=== PATIENT | female | born 1950 | race Two or more races ===

== ENCOUNTER 2020-09-28 08:56 | Outpatient (REF) | payer MEDICARE, SELFPAY ==
[2020-09-28 10:24] LABS: Blood Urea Nitrogen 16 mg/dL (9-16); Estimated Glomerular Filt Rate > 60
== END 2020-09-28 08:57 | disposition home or self-care (01) ==
LOC: HO.LAB 08:56
PROVIDERS: PCP Student in an Organized Health Care Education/Training Program; Visit Provider Otolaryngology
DX: R22.1 Localized swelling, mass and lump, neck (principal)
CPT/HCPCS: 82565; 84520

== ENCOUNTER 2020-11-07 09:12 | Outpatient (REF) | payer MEDICARE, SELFPAY ==
[2020-11-07 10:29] LABS: Blood Urea Nitrogen 13 mg/dL (9-16); Estimated Glomerular Filt Rate > 60
== END 2020-11-07 09:13 | disposition home or self-care (01) ==
LOC: HO.LAB 09:12
PROVIDERS: PCP Student in an Organized Health Care Education/Training Program; Visit Provider Otolaryngology
DX: Z01.812 Encounter for preprocedural laboratory examination (principal); R22.1 Localized swelling, mass and lump, neck
CPT/HCPCS: 36415; 82565; 84520

== ENCOUNTER 2020-11-15 08:41 | Outpatient (REF) | payer MEDICARE, SELFPAY ==
--- NOTE | 2020-11-15 08:44 | CT_ITS ---
EXAMINATION: CT SOFT TISSUE NECK WITHOUT CONTRAST CLINICAL INFORMATION: Mass/lump left side. COMPARISON: None TECHNIQUE: Helical imaging was performed in the axial plane with generation of coronal and sagittal reformatted images. Patient declined IV contrast. This CT examination was performed using dose optimization techniques as appropriate, variously including the following: *Automated exposure control *Adjustment of mA and/or kV according to patient size (this includes techniques or standardized protocols for targeted exams where dose is matched to indication/reason for exam; i.e. extremities or head) *Use of iterative reconstruction technique DLP: 371 mGy-cm FINDINGS: There are bilateral multiple enlarged lymph nodes with central lucency consistent with medullary fat. The largest lymph node right neck 2 cm in long axis and 9 mm in short axis axial image 57/3 and the largest lymph node left neck level 2 measures 2.4 x 9 mm axial image 52/3. These are benign. The parotid glands are homogeneous in attenuation. The submandibular glands are normal. No contour abnormality or pathologic enhancement is seen within the oral cavity or pharyngeal mucosal space. The laryngeal structures are normal. The parapharyngeal fat is preserved. The carotid sheath vasculature opacify normally. No extramucosal soft tissue mass or fluid collection is seen. No retropharyngeal fluid collection is seen. There is a 7 mm calcified nodule right thyroid lobe. The superior mediastinum is unremarkable. The lung apices are clear. There is bilateral ethmoid and left sphenoid sinus inflammatory changes. The temporomandibular joints are normal. No periapical disease is identified. No osseous abnormalities are seen. The imaged portions of the brain parenchyma are unremarkable. CT/CT soft tissue neck wo con IMPRESSION: No evidence of neck mass or abnormal-sized lymph nodes. The airway is widely patent. Calcified nodule right thyroid lobe. Correlate with ultrasound thyroid gland.
== END 2020-11-15 08:42 | disposition home or self-care (01) ==
LOC: HO.CT 08:41
PROVIDERS: PCP Student in an Organized Health Care Education/Training Program; Visit Provider Otolaryngology
DX: R22.1 Localized swelling, mass and lump, neck (principal)
CPT/HCPCS: 70490

== ENCOUNTER 2021-10-12 11:20 | Outpatient (REF) | payer MEDICARE, SELFPAY ==
--- NOTE | ~2021-10-12 | US_ITS ---
EXAMINATION: US THYROID CLINICAL INFORMATION: 7 mm calcified nodule seen on CT from October 2020. Localized enlarged lymph nodes. COMPARISON: CT soft tissue neck 11/15/2020. TECHNIQUE: Linear transducer grayscale and color Doppler examination with attention to the region of the thyroid. FINDINGS: SIZE: Measurements of the thyroid lobes and nodules are given in sagittal, anteroposterior and transverse dimensions respectively. Right Thyroid Lobe: 4.3 x 1.9 x 2.1 cm, volume 9.0 mL. Parenchyma: The gland echotexture is heterogeneous. Thyroid vascularity is increased. Left Thyroid Lobe: 3.8 x 1.8 x 1.4 cm, volume 5.0 mL. Parenchyma: The gland echotexture is heterogeneous. Thyroid vascularity is increased. Isthmus: 0.3 cm in maximum AP dimension. Estimated total number of nodules greater than or equal to 1 cm: 2. Aligner Typewriter nodules are described as follows: 1. Location: Right superior. Size: 0.6 x 0.3 x 0.3 cm, volume 0.04 mL. Nodule characteristics: Composition: Cystic(0). ACR TI-RADS total points: 0 ACR TI-RADS category: 1 2. Location: Right inferior. Size: 2.2 x 1.6 x 2.3 cm, volume 4.1 mL. Nodule characteristics: Composition: Solid (2). Echogenicity: Isoechoic (1). Shape: Not taller than wide (0). Margins: Lobulated (2). Echogenic Foci: Macrocalcifications (1). ACR TI-RADS total points: 6 ACR TI-RADS category: 4 3. Location: Left superior. Size: 2.4 x 0.9 x 1.3 cm, volume 1.47 mL. Nodule characteristics: Composition: Solid (2). Echogenicity: Hypoechoic (2). Shape: Not taller than wide (0). Margins: Extrathyroidal extension (3). Echogenic Foci: None (0). ACR TI-RADS total points: 7 ACR TI-RADS category: 5 NODES: Multiple bilateral enlarged cervical lymph nodes. The largest on the right measures 2.5 cm and the largest on the left measures 2.9 cm. US/US thyroid IMPRESSION: Heterogeneous echotexture thyroid gland. The bilateral thyroid nodules. Nodules 2 and 3 meet criteria for FNA. ACR TI-RADS RECOMMENDATION REFERENCE: Ultrasound-guided fine-needle aspiration, followup ultrasound, no further follow up. * TR1 (0 point) and TR 2 (2 points): No FNA or follow up * TR3 (3 points): FNA if more than or equal to 2.5 cm in maximum dimension, followup ultrasound in 1, 3 and 5 years if 1.5 to 2.4 cm in maximum dimension. * TR4 (4-6 points): FNA if more than or equal to 1.5 cm in maximum dimension, followup ultrasound in 1, 2, 3 and 5 years if 1 to 1.4 cm in maximum dimension. * TR5 (more than or equal to 7 points): FNA if more than or equal to 1 cm in maximum dimension, followup ultrasound every year for 5 years if 0.5 to 0.9 cm in maximum dimension. * TR3, TR4 or TR5 nodules that are below the size threshold for follow up receive no follow up.
== END 2021-10-12 11:21 | disposition home or self-care (01) ==
LOC: HO.HMGCX 11:20
PROVIDERS: PCP Student in an Organized Health Care Education/Training Program; Visit Provider Family Medicine
DX: R59.0 Localized enlarged lymph nodes (principal); E04.1 Nontoxic single thyroid nodule
CPT/HCPCS: 76536

== ENCOUNTER 2021-12-05 09:46 | Outpatient (REF) | payer MEDICARE, SELFPAY ==
--- NOTE | ~2021-12-05 | XR_ITS ---
EXAMINATION: XR TEMPOROMANDIBULAR JOINT, BILATERAL CLINICAL INFORMATION: Jaw pain COMPARISON: None TECHNIQUE: 5 views FINDINGS: There is normal symmetry of bilateral TM joints in open and closed positions with no bony erosive changes, fracture or loose bodies. Visualized bilateral maxillary, ethmoid and mastoid sinuses are clear. No lytic or sclerotic process is seen involving the mandible. There is normal translation of the mandibular condyle in the temporal fossa on open and closed mouth position. XR/XR TMJ BI IMPRESSION: Unremarkable TM joint exam.
== END 2021-12-05 09:47 | disposition home or self-care (01) ==
LOC: HO.XRAY 09:46
PROVIDERS: PCP Student in an Organized Health Care Education/Training Program; Visit Provider Student in an Organized Health Care Education/Training Program
DX: R68.84 Jaw pain (principal)
CPT/HCPCS: 70330

== ENCOUNTER 2023-05-21 | Outpatient (REF) | payer MEDICARE, SELFPAY | END 2023-05-21 00:01 | disposition home or self-care (01) | LOC: HO.LNP | PROVIDERS: Visit Provider Physician Assistant | DX: Z13.89 Encounter for screening for other disorder (principal) ==

== ENCOUNTER 2023-05-21 09:42 | Outpatient (AMB) | payer MEDICARE, SELFPAY ==
--- NOTE | 2023-05-21 09:59 | MHC.OFFVIS ---
Intake Vital Signs 05/21/23 10:04 Height 5 ft Weight 167 lb BMI 32.6 BP 134/74 Blood Pressure Location Lt brachial Position Sitting Pulse 76 Intake Visit Reasons: Colonoscopy Screening Intake Note: Patient new consult for Colonoscopy screening. Patient cc: abdominal pain/bloating, acid reflex on and off, and constipation with bloody hemorrhoids. Corporate Strategy Associate Required: No Accompanied by: Self / Same As Patient Allergies Sulfa (Sulfonamide Antibiotics) [SULFA (SULFONAMIDE ANTIBIOTICS)] Allergy (Unknown, Verified 05/21/23 09:58) RASH Medication List - Last Reconciled 05/22/23 by Cherelle Calzada PA-C bisacodyl (Dulcolax (bisacodyl)) 20 mg (4 x 5 mg) PO ONCE 1 day docusate sodium (Colace) 200 mg (2 x 100 mg) PO BEDTIME methylcellulose (laxative) (Citrucel) 500 mg PO TID omeprazole 20 mg PO DAILY polyethylene glycol 3350 (Miralax) 238 grams PO ONCE 1 day polyethylene glycol 3350 (Miralax) 17 grams PO DAILY HPI HPI Comments History of Present Illness Details a 72 y/o female referrred for colonoscopy Last 1984- had 2 polyps- Treated for e.colo- a few months ago- did not complete tx- sx have improved-followed up with PCP She does have bloating abd cramping intermittenly-ongoing for most of her adult life Also chronic constipation-adult life Meds for cholesterol, anxiety, hypertension No DM, no anti coags Appetite is good- but has sick feeling when she eats with reflux/ waterbrash-symptoms off over the years No vomiting, hematemesis, hematochezia fever chills PFSH Surgical History Hx of ankle fusion Hx of hysterectomy Hx of malignant neoplasm of head and neck Hx of tubal ligation Social History Household Members: None Alcohol intake: current Alcohol intake frequency: holidays/special occasions only Patient Tobacco Use Status: Current everyday Tobacco user Use of substances other than those prescribed or required for medical reasons: No Review of Systems Const All systems reviewed & are unremarkable except as noted in HPI and below Card Denies chest pain and Denies dyspnea Resp Denies dyspnea GI Denies abdominal pain, Denies hematochezia, Reports constipation and Reports heartburn Physical Exam Vital Signs: Last Vital Signs Pulse 76 05/21/23 10:04 BP 134/74 05/21/23 10:04 BMI result Body Mass Index 32.6 Const General: cooperative, healthy appearing and comfortable Orientation/consciousness: patient oriented x3 Limitations: ambulation with cane Resp Effort & Inspection: normal respiratory effort and able to speak in complete sentences Auscultation: rhonchi and no wheezes Cardio Rate: regular rate Rhythm: regular rhythm Heart sounds: S1 normal heart sound present and S2 normal heart sound present GI Palpation (GI): Soft to palpation and nontender Auscultation: normal bowel sounds Skin General skin exam: no rashes or lesions noted Neuro General: patient oriented x3 Psych Speech and movement: Normal speech and movement present and Clear speech present Affect: normal affect and Animated affect present Attitude: cooperative Thought process: Normal thought process present Assessment & Plan Assessment & Plan (1) Acid reflux: Comment: Smoker Symptoms ongoing for years Reflux precautions reviewed Code(s): K21.9 - Gastro-esophageal reflux disease without esophagitis Plan: Avoid culprits Submit H pylori stool if positive will treat will begin PPI after some sample submitted (2) Chronic constipation: Code(s): K59.09 - Other constipation Plan: Consistent bowel regimen Maintain high-fiber Colonoscopy (3) Encounter for screening colonoscopy: Code(s): Z12.11 - Encounter for screening for malignant neoplasm of colon Plan: Colonoscopy Plan EGD colonoscopy MiraLax Gatorade prep MiraLax b.i.d. 5 days prior to prep day to assure good prep Orders: Orders EGD/[place] Combo - GI Use Only 05/21/23 H pylori Ag Stool 05/21/23 A04.8 - Other specified bacterial intestinal infections Medications: New methylcellulose (laxative) (Citrucel) 500 mg PO TID 90 tabs 5RF docusate sodium (Colace) 200 mg (2 x 100 mg) PO BEDTIME 60 caps 5RF polyethylene glycol 3350 (Miralax) 17 grams PO DAILY 510 grams 6RF polyethylene glycol 3350 (Miralax) Take as directed by mouth the day before your procedure. 238 grams PO ONCE 238 grams 0RF 1 day bisacodyl (Dulcolax (bisacodyl)) Take 4 tablets by mouth at 12:00pm the day before your procedure. 20 mg (4 x 5 mg) PO ONCE 4 tabs 0RF colonoscopy prep 1 day Z12.11 - Encounter for screening for malignant neoplasm of colon omeprazole 20 mg PO DAILY 30 caps 5RF Patient Instructions: H pylori stool antigen if positive will treat Omeprazole 20 mg Reflux precautions Avoid culprits Consistent bowel regimen Maintain high-fiber diet literature given EGD and colonoscopy Extended prep Courage to call questions or concerns Coding Level of Care Code New Pt Level 3 (15159) Diagnoses Acid reflux K21.9 Chronic constipation K59.09 Encounter for screening colonoscopy Z12.11 Time Spent (min) 30 Comment Adult daughter present-
[2023-05-21 10:04] VITALS: BP 134/74; PULSE 76; BMI 32.6
== END 2023-05-21 10:57 | disposition home or self-care (01) ==
PROVIDERS: PCP Student in an Organized Health Care Education/Training Program; Visit Provider Physician Assistant
DX: K21.9 Gastro-esophageal reflux disease without esophagitis (principal); K59.09 Other constipation; Z12.11 Encounter for screening for malignant neoplasm of colon
CPT/HCPCS: 99203

== ENCOUNTER → 2023-05-21 09:42 | Outpatient (BNVA) | payer MEDICARE, SELFPAY | PROVIDERS: PCP Student in an Organized Health Care Education/Training Program; Visit Provider Physician Assistant | DX: Z12.11 Encounter for screening for malignant neoplasm of colon (principal); K21.9 Gastro-esophageal reflux disease without esophagitis; K59.09 Other constipation | CPT/HCPCS: 99202 ==

== ENCOUNTER 2023-06-03 15:42 | Outpatient (REF) | payer MEDICARE, SELFPAY | END 2023-06-03 15:43 | disposition home or self-care (01) | LOC: HO.LNP 15:42 | PROVIDERS: Visit Provider Physician Assistant | DX: A04.8 Other specified bacterial intestinal infections (principal) | CPT/HCPCS: 87338 ==

== ENCOUNTER 2023-07-18 10:03 | Outpatient (AMB) | payer MEDICARE, SELFPAY ==
--- NOTE | 2023-07-18 10:42 | MHC.OFFVIS ---
Intake Intake Visit Reasons: h pylori Intake Note: Patient presents for collection of H Pylori breath test. Patient has been fasting for 1 hour (nothing to eat, drink, no chewing gum or smoking) has not taken any antacid medication for at least 2 weeks and has no allergies to artificial sweeteners.?? Allergies Sulfa (Sulfonamide Antibiotics) [SULFA (SULFONAMIDE ANTIBIOTICS)] Allergy (Unknown, Verified 05/21/23 09:58) RASH [facility] Surgical History Hx of tubal ligation Hx of malignant neoplasm of head and neck Hx of hysterectomy Hx of ankle fusion Social History Household Members: None Alcohol intake: current Alcohol intake frequency: holidays/special occasions only Patient Tobacco Use Status: Current everyday Tobacco user Results Reviewed Results Reviewed: 07/18/23 10:38 H Pylori Breath Test Routine Laboratory Last Values H. pylori Breath Test Positive (Negative) 07/18/23 10:38 Assessment & Plan Assessment & Plan (1) H. pylori infection: Code(s): A04.8 - Other specified bacterial intestinal infections Plan: Patient to call for results Plan Patient presents for collection of H Pylori breath test. Patient has been fasting for 1 hour (nothing to eat, drink, no chewing gum or smoking) has not taken any antacid medication for at least 2 weeks and has no allergies to artificial sweeteners.???This test checks for an overgrowth of bacteria in your stomach. We all have bacteria but some may have more than others. It is treatable. if the test comes back negative there is nothing else to do. If the test result is positive we will treat you with 2 antibiotics and a medication to decrease the acid in your stomach (PPI) for 2 weeks. Two weeks after you have completed the treatment we will retest you to make sure the overgrowth has resolved. Patient Instructions: Process for specimen collection and reason for testing was explained to the patient. Specimen collection. Patient instructed to take a deep breath and then exhale into the blue bag, filling it up as much as possible. Patient instructed to drink a mixture of water and the artificial sweetener with a straw. A 15 minute wait period was observed. Patient instructed to take a deep breath and then exhale into the pink bag, filling it up as much as possible.?? Coding Level of Care Code Established Pt Est Pt Level 1 (54577) Patient Type Established Medical Decision Making Straight Forward Diagnoses H. pylori infection A04.8 Time Spent (min) 30
[2023-07-20 13:43] LABS: H Pylori Breath Test Positive (Negative)
== END 2023-07-18 10:40 | disposition home or self-care (01) ==
PROVIDERS: PCP Student in an Organized Health Care Education/Training Program; Visit Provider Physician Assistant
DX: A04.8 Other specified bacterial intestinal infections (principal)

== ENCOUNTER → 2023-07-18 10:03 | Outpatient (BNVA) | payer MEDICARE, SELFPAY | PROVIDERS: PCP Student in an Organized Health Care Education/Training Program; Visit Provider Physician Assistant | DX: Z11.0 Encounter for screening for intestinal infectious diseases (principal) | CPT/HCPCS: 83013; 99211 ==

== ENCOUNTER 2023-10-08 10:25 | Day surgery (SDC) | payer MEDICARE, SELFPAY ==
--- NOTE | 2023-10-07 09:21 | P.CONAN_ITS ---
Documented by User: Karin Niño NP 10/07/23 09:32 HPI - Anesthesia Eval Consult details Narrative: 73yo F for Upper Endoscopy and Colonoscopy [facility] Active Problems Active Problems: All Active Problems (Updated 07/21/23 @ 09:31 by Cherelle Calzada PA-C) H. pylori infection (Acute) Encounter for screening colonoscopy (Acute) Chronic constipation (Acute) Acid reflux (Acute) Surgical History Surgical History Hx of ankle fusion Hx of hysterectomy Hx of malignant neoplasm of head and neck Hx of tubal ligation Social History Social History Household Members: None Alcohol intake: current Alcohol intake frequency: holidays/special occasions only Patient Tobacco Use Status: Current everyday Tobacco user Tobacco use type: Cigarette Cigarettes Per Day: 2 Use of substances other than those prescribed or required for medical reasons: No Are you DNR?: No Advance Directives: No Advance Directives Information Provided: Yes Recently lost weight without trying: No Patient : No Meds Allergies Allergy/AdvReac Type Severity Reaction Status Date / Time Sulfa (Sulfonamide Allergy Unknown RASH Verified 05/21/23 09:58 Antibiotics) [SULFA (SULFONAMIDE ANTIBIOTICS)] Assessment and Plan Assessment Anesthesia Assessment: Chart Reviewed Documented by User: Vitor Shafer MD 10/08/23 11:41 [facility] Family History Family history of problems with anesthesia: No Surgical History Surgical History Hx of ankle fusion Hx of hysterectomy Hx of malignant neoplasm of head and neck Hx of tubal ligation History of Problems with Anesthesia: No Social History Social History Household Members: None Alcohol intake: current Alcohol intake frequency: holidays/special occasions only Patient Tobacco Use Status: Current everyday Tobacco user Tobacco use type: Cigarette Cigarettes Per Day: 2 Use of substances other than those prescribed or required for medical reasons: No Are you DNR?: No Advance Directives: No Advance Directives Information Provided: Yes Recently lost weight without trying: No Patient : No Meds Allergies Allergy/AdvReac Type Severity Reaction Status Date / Time Sulfa (Sulfonamide Allergy Unknown RASH Verified 05/21/23 09:58 Antibiotics) [SULFA (SULFONAMIDE ANTIBIOTICS)] Exam Airway Mallampati Class: II TM Dist: >3cm Neck ROM: Limited Heart: rrr Lungs: cta Assessment and Plan Assessment Anesthesia Assessment: Anesthesia Plan Discussed Final Anesthetic Review Family History of Problems with Anesthesia: No History of Problems with Anesthesia: No NPO: Yes ASA Class: II Final Preanesthetic Review: No Changes in Pt Med Stat, Meds/Allgs Chart Reviewed, Consent Obtained/Reviewed and Anes Risks/Benef Reviewed Patient Risk: Intermediate Procedure Risk: Low Anesthetic Plan Anesthetic Plan: MAC: and Agree w/ Assess. and Plan Disposition: Standard PACU
[2023-10-08] VITALS (13 sets, daily range): BP systolic 168–193; BP diastolic 81–104; PULSE 91–121; RESP 16–22; TEMP 36.3–36.8; O2SAT 90–96; BMI 30.9
--- NOTE | 2023-10-08 | ECG_ITS ---
Test Reason : ekg changes Blood Pressure : / mmHG Vent. Rate : 101 BPM Atrial Rate : 101 BPM P-R Int : 192 ms QRS Dur : 140 ms QT Int : 386 ms P-R-T Axes : 063 018 136 degrees QTc Int : 500 ms Sinus tachycardia Left bundle branch block Abnormal ECG No previous ECGs available Referred By: Leonid Sin Electronically Signed By:Puma Pablo
--- NOTE | ~2023-10-08 | XR_ITS ---
EXAMINATION: XR CHEST CLINICAL INFORMATION: Evaluate for aspiration COMPARISON: None available. TECHNIQUE: Frontal view of the chest was obtained. FINDINGS: Patchy radiopacity involving the left mid and lower lung rivero which may reflect sequela of aspiration versus evolving infectious/inflammatory etiology. Bibasilar atelectasis. No pneumothorax. Trachea is midline. Cardiac mediastinal silhouette is not enlarged. No large pleural effusion. Osseous structures are intact. Soft tissues are unremarkable. XR/XR chest 1V IMPRESSION: 1. Patchy radiopacity involving the left mid and lower lung rivero which may reflect sequela of aspiration versus evolving infectious/inflammatory etiology. 2. Bibasilar atelectasis.
--- NOTE | 2023-10-08 11:09 | MHC.SHP ---
Pre-Procedural Eval Section A Date of Service: 10/08/23 Section B Chief Complaint: Gastro-esophageal reflux disease without esophagit Relevant Family History (Specify if Yes): No Relevant Social History: Tobacco Use Present Medications: see Short Stay Collaborative assessment Medical History: Significant History (h pylori, GERD) History of Previous Operations: Relevant previous surgery/procedure and date(s) ( Hx of ankle fusion Hx of hysterectomy Hx of malignant neoplasm of head and neck Hx of tubal ligation) Allergies: Allergies Allergy/AdvReac Type Severity Reaction Status Date / Time Sulfa (Sulfonamide Allergy Unknown RASH Verified 05/21/23 09:58 Antibiotics) [SULFA (SULFONAMIDE ANTIBIOTICS)] Review of Systems Sugical H&P ROS: Negative: Constitution, Cardiovascular, Respiratory, Neurological, Psychiatric, Hem-Onc, Allergic/Immunologic, Gastrointestinal, Genitourinary, Musculoskeletal, Integumentary, Endocrine and Eyes/Ears/Nose/Throat Exam Surgical H&P Exam: Normal: HEENT, Normal: Heart, Normal: Lungs, Normal: Extremities, Normal: Abdomen, Normal: Skin and Normal: Neurological Plan Diagnosis/Plan: Unchanged I have reviewed the history and physical and performed a pertinent physical examination on my patient. No changes have occurred unless specified. EGD was postponed due to loose tooth Time Spent With Patient Time: Total time managing care of this patient today ____ minutes.
--- NOTE | 2023-10-08 13:02 | W.PM.OPN ---
Operative Note Operative Note Date of Service: 10/08/23 Narrative: Operative Information Procedure Description: Colonoscopy Indication: screening Anesthesia: MAC COLONOSCOPY Instrument: Olympus variable stiffness pediatric scope 190L Colonoscopy Monitoring: Vital signs and clinical assessment, continuous EKG monitoring, Pulse oximetry, Carbon Dioxide monitoring and blood pressure monitoring were done throughout the procedure. Colon withdrawal time was 30 minutes. Procedure: The patient was placed in the left lateral decubitis position and pre-procedure medications were administered. After a digital rectal examination of the ano-rectum, the video colonoscope was inserted into the rectum and advanced through the colon to the cecum/TI. The colonoscope was slowly withdrawn in a retrograde panoramic fashion and the colon mucosa was carefully examined including a retroflexed view of the rectum. Findings and interventions are described below. Procedure Difficulty: easy Findings: Terminal Ileum-normal Cecum:normal Ascending Colon: x 3 sessile polyps removed with cold snare measuring 10-13 mm. There was x1 pedunculated polyp measuring about 15-18 mm, injected with 1 ml of epinehprine and removed piece meal with hot snare then x 2 clips applied. Transverse Colon -normal Descending Colon: x3 sessile polyps ranging from 4-5 mm to 10-12 mm noted. larger polyps removed with cold snare and the smaller one with cold biopsy forceps. x 1 clip applied to one are for hemostasis. Sigmoid Colon: moderate diverticulosis Rectum: Retroflexion with small internal hemorrhoids, grade I, semi pedunculated polyp 13-14 mm removed with hot snare and then x 2 clips applied to the defect. Anorectum - normal Colon preparation: [place] Bowel Preparation Scale Right colon; 2 Transverse colon: 2 Left colon; 2 (0 = Unprepared colon segment with mucosa not seen due to solid stool that cannot be cleared. 1 = Portion of mucosa of the colon segment seen, but other areas of the colon segment not well seen due to staining, residual stool and/or opaque liquid. 2 = Minor amount of residual staining, small fragments of stool and/or opaque liquid, but mucosa of colon segment seen well. 3 = Entire mucosa of colon segment seen well with no residual staining, small fragments of stool or opaque liquid) Impression and Post Procedure Diagnosis: polyps internal hemorrhoids diverticular disease Plan: High fiber diet leaflet Avoid straining at stool, epsom salts and sitz bath, anusol supps or cream Repeat Colonoscopy in 3-6 months or earlier if clinically indicated Above findings were reviewed with the patient and relevant handouts were provided if indicated.
== END 2023-10-08 14:57 | disposition home or self-care (01) ==
PROVIDERS: PCP Student in an Organized Health Care Education/Training Program; Visit Provider Internal Medicine Gastroenterology
PROC: (CPT 45385; principal; 2023-10-08 12:50)
DX: Z12.11 Encounter for screening for malignant neoplasm of colon (principal); D12.2 Benign neoplasm of ascending colon; D12.4 Benign neoplasm of descending colon; K62.1 Rectal polyp; K57.30 Diverticulosis of large intestine without perforation or abscess without bleeding; K64.0 First degree hemorrhoids; K59.09 Other constipation; K21.9 Gastro-esophageal reflux disease without esophagitis; Z79.899 Other long term (current) drug therapy; Z85.89 Personal history of malignant neoplasm of other organs and systems; Z88.2 Allergy status to sulfonamides; F17.210 Nicotine dependence, cigarettes, uncomplicated
CPT/HCPCS: 45385; 45380; 45381; 71045; 88305; 93005; J2405; J2704

== ENCOUNTER → 2023-10-08 10:25 | Outpatient (BNV) | payer MEDICARE, SELFPAY | PROVIDERS: PCP Student in an Organized Health Care Education/Training Program; Visit Provider Internal Medicine Gastroenterology | DX: Z12.11 Encounter for screening for malignant neoplasm of colon (principal); D12.4 Benign neoplasm of descending colon; D12.2 Benign neoplasm of ascending colon; K57.30 Diverticulosis of large intestine without perforation or abscess without bleeding | CPT/HCPCS: 45380; 45381; 45385 ==

== ENCOUNTER → 2023-10-08 13:22 | Outpatient (BNV) | payer MEDICARE, SELFPAY | PROVIDERS: PCP Student in an Organized Health Care Education/Training Program; Visit Provider Internal Medicine Cardiovascular Disease | DX: R00.0 Tachycardia, unspecified (principal); R94.31 Abnormal electrocardiogram [ECG] [EKG] | CPT/HCPCS: 93010 ==

== ENCOUNTER 2023-10-22 09:47 | Outpatient (AMB) | payer MEDICARE, SELFPAY ==
--- NOTE | 2023-10-22 09:55 | MHC.OFFVIS ---
Intake Vital Signs 10/22/23 09:58 Height 5 ft Weight 152 lb BMI 29.7 BP 158/79 H Blood Pressure Location Lt brachial Position Sitting Pulse 86 Intake Visit Reasons: S/p egd/colon Ochoa Intake Note: Patient follow up for Colonoscopy results. Patient cc: abdominal pain with bloating. Denies any other GI issues. 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 by: Daughter Allergies Sulfa (Sulfonamide Antibiotics) [SULFA (SULFONAMIDE ANTIBIOTICS)] Allergy (Unknown, Verified 10/22/23 09:54) RASH Medication List - Last Reconciled 10/22/23 by Cherelle Calzada PA-C bismuth subsalicylate (Bismuth) 2 tabs PO QID 14 days methylcellulose (laxative) (Citrucel) 500 mg PO TID omeprazole 20 mg PO DAILY polyethylene glycol 3350 (Miralax) 17 grams PO DAILY tetracycline 500 mg PO Q6H 14 days HPI HPI Comments History of Present Illness Details A 73 y/o female f/u after colonoscopy with polypectomy She was to have EGD, however- postponed due to loose tooth- she had N/V after the procedure-she felt a bit sluggish the following day however has had no further issues-appetite is good bowels are normal She is taking PPI for heartburn dietary modifications beneficial She also had finding on EKG-was referred to cardiology- appointment in November Reviewed procedure, path and recommendations- repeat colonoscopy 3-6 months No N/V/D/no abdominal pain- no CP, SOB, dizzinessfever or chills PFSH Surgical History Hx of colonoscopy Hx of tubal ligation Hx of malignant neoplasm of head and neck Hx of hysterectomy Hx of ankle fusion Social History Household Members: None Alcohol intake: current Alcohol intake frequency: holidays/special occasions only Patient Tobacco Use Status: Current everyday Tobacco user Tobacco use type: Cigarette Cigarettes Per Day: 2 Review of Systems Const All systems reviewed & are unremarkable except as noted in HPI and below Card Denies chest pain, Denies dyspnea and Denies dyspnea on exertion Resp Denies dyspnea and Denies dyspnea on exertion GI Denies no additional complaints, Reports heartburn, Denies nausea and Denies vomiting Physical Exam Vital Signs: Last Vital Signs Pulse 86 10/22/23 09:58 BP 158/79 H 10/22/23 09:58 BMI result Body Mass Index 29.7 Const General: cooperative, healthy appearing, comfortable and anxious Orientation/consciousness: patient oriented x3 Limitations: no limitations Neuro General: patient oriented x3 Results Reviewed Results Reviewed: Findings: Terminal Ileum-normal Cecum:normal Ascending Colon: x 3 sessile polyps removed with cold snare measuring 10-13 mm. There was x1 pedunculated polyp measuring about 15-18 mm, injected with 1 ml of epinehprine and removed piece meal with hot snare then x 2 clips applied. Transverse Colon -normal Descending Colon: x3 sessile polyps ranging from 4-5 mm to 10-12 mm noted. larger polyps removed with cold snare and the smaller one with cold biopsy forceps. x 1 clip applied to one are for hemostasis. Sigmoid Colon: moderate diverticulosis Rectum: Retroflexion with small internal hemorrhoids, grade I, semi pedunculated polyp 13-14 mm removed with hot snare and then x 2 clips applied to the defect. Anorectum - normal Colon preparation: [place] Bowel Preparation Scale Right colon; 2 Transverse colon: 2 Left colon; 2 (0 = Unprepared colon segment with mucosa not seen due to solid stool that cannot be cleared. 1 = Portion of mucosa of the colon segment seen, but other areas of the colon segment not well seen due to staining, residual stool and/or opaque liquid. 2 = Minor amount of residual staining, small fragments of stool and/or opaque liquid, but mucosa of colon segment seen well. 3 = Entire mucosa of colon segment seen well with no residual staining, small fragments of stool or opaque liquid) Impression and Post Procedure Diagnosis: polyps internal hemorrhoids diverticular disease Plan: High fiber diet leaflet Avoid straining at stool, epsom salts and sitz bath, anusol supps or cream Repeat Colonoscopy in 3-6 months or earlier if clinically indicated Above findings were reviewed with the patient and relevant handouts were provided if indicated. rachel: Stefanie Montanez Age/Sex: 73/F Attending: Mami Ochoa MD : 1950 Submitted by: Mami Ochoa MD Copies to: Aarti Koch MD MR #: [id number] Status: [facility] Collected: 10/08/23 Location: [facility] [place] Received: 10/08/23 Diagnosis A. Colon, ascending, polypectomies: Fragments of tubular adenomata; negative for high-grade dysplasia or carcinoma. B. Colon, descending, polypectomies: Tubular adenomata; negative for high-grade dysplasia or carcinoma. C. Rectum, polypectomy: Hyperplastic mucosal polyp. Clinical History Pre-Op Dx: Screening Post-Op Dx: Diverticulosis, hemorrhoids, polyps Microscopic Description A-C. Microscopic sections reviewed. Material Received A. Ascending colon polyps B. Descending colon polyps C. Rectal polyps Gross Description Received in 3 parts. Part A: Received in formalin labeled ?ascending colon polyp (sic)? are multiple garner-pink and pink-red irregular and papular tissue fragments ranging from 0.2-1.2 cm in greatest dimension. The largest fragment is sectioned and entirely submitted in cassette A1. The smaller tissue fragments aggregating 1.5 x 1.5 x 0.2-0.4 cm are submitted in toto in cassette A2. Part B: Received in formalin labeled ?descending colon (sic)? are several minute to 0.9 cm in greatest dimension irregular fragments and papules of garner-pink and red-maroon tissue. The resected base of the largest fragment is inked and the specimen is sectioned and entirely submitted along with the smaller tissue fragments, submitted in toto in a cassette labeled B. Part C: Received in formalin labeled ?rectal polyps? are 3 focally congested and hemorrhagic, garner and red-maroon irregular and papular tissue fragments ranging from 0.1-0.6 cm in greatest dimension. The resected base of the largest fragment is inked and the specimen is bisected and entirely submitted along with the 2 smaller tissue fragments, submitted in toto in a cassette labeled C. Patient: Stefanie Montanez Age/Sex: 73/F MR#: [id number] Page 1 of 2 Assessment & Plan Assessment & Plan (1) Tubular adenoma: Comment: Reviewed procedure report, pathology recommendation Seen Cardiology in November Code(s): D36.9 - Benign neoplasm, unspecified site Plan: Repeat colonoscopy 3-6 months (2) Diverticulosis of colon: Code(s): K57.30 - Diverticulosis of large intestine without perforation or abscess without bleeding Plan: Maintain high-fiber diet ER protocol (3) Hemorrhoids: Code(s): K64.9 - Unspecified hemorrhoids Plan: High-fiber diet avoid straining Plan Colonoscopy 3-6-will see her back in the office prior to scheduling to follow-up on cardiology consult Patient Instructions: Colonoscopy 3-6-will see her back in the office prior to scheduling to follow-up on cardiology consult Maintain high-fiber diet Avoid straining with hemorrhoid Diverticulosis/diverticulitis year protocol reviewed Reflux precautions review Continue PPI avoid culprits Encouraged to call questions or concerns No major barriers to understanding identify Coding Level of Care Code Est Pt Level 3 (36115) Diagnoses Tubular adenoma D36.9 Diverticulosis of colon K57.30 Hemorrhoids K64.9 Time Spent (min) 30 Comment Daughter present
[2023-10-22 09:58] VITALS: BP 158/79; PULSE 86; BMI 29.7
== END 2023-10-22 10:28 | disposition home or self-care (01) ==
PROVIDERS: PCP Student in an Organized Health Care Education/Training Program; Visit Provider Physician Assistant
DX: D36.9 Benign neoplasm, unspecified site (principal); K57.30 Diverticulosis of large intestine without perforation or abscess without bleeding; K64.9 Unspecified hemorrhoids
CPT/HCPCS: 99213

== ENCOUNTER → 2023-10-22 09:47 | Outpatient (BNVA) | payer MEDICARE, SELFPAY | PROVIDERS: PCP Student in an Organized Health Care Education/Training Program; Visit Provider Physician Assistant | DX: K57.30 Diverticulosis of large intestine without perforation or abscess without bleeding (principal); K64.9 Unspecified hemorrhoids; D36.9 Benign neoplasm, unspecified site | CPT/HCPCS: 99212 ==

== ENCOUNTER 2023-12-18 09:04 | Outpatient (AMB) | payer MEDICARE, SELFPAY ==
[2023-12-18 09:24] VITALS: BP 140/78; PULSE 87; O2SAT 99; BMI 30.2
--- NOTE | 2023-12-18 09:24 | MHC.OFFVIS ---
Intake Vital Signs 12/18/23 09:24 Height 5 ft Weight 154 lb 12.232 oz BMI 30.2 BP 140/78 H Blood Pressure Location Lt brachial Position Sitting Pulse 87 Pulse Source Pulse Oximeter Pulse Oximetry (%) 99 Oxygen Delivery Method Room Air Intake Visit Reasons: INSPECT[employer]/Dr. Koch/Cardiac arrhythmia Intake Note: Pt presents to the office today for a new patient visit. Accompanied by: Daughter Allergies Sulfa (Sulfonamide Antibiotics) [SULFA (SULFONAMIDE ANTIBIOTICS)] Allergy (Unknown, Verified 12/18/23 09:25) RASH Medication List - Last Reconciled 12/18/23 by Cuco Castillo MD bismuth subsalicylate (Bismuth) 2 tabs PO QID 14 days methylcellulose (laxative) (Citrucel) 500 mg PO TID omeprazole 20 mg PO DAILY polyethylene glycol 3350 (Miralax) 17 grams PO DAILY tetracycline 500 mg PO Q6H 14 days HPI HPI Comments History of Present Illness Details Stefanie is here for consultation regarding abnormal EKG. A recent EKG had shown left bundle-branch block. That was in the setting of getting a colonoscopy. Otherwise, patient herself does not have any clear history of coronary disease or myocardial infarction but she states around 40 years ago she was told to have enlarged heart. Again very vague history. She seems to have a cane with her but within her limitations, no clear-cut angina. She does get some random chest pains. Shortness of breath off and on. She has been referred here for further evaluation. [facility] Surgical History Hx of colonoscopy Hx of tubal ligation Hx of malignant neoplasm of head and neck Hx of hysterectomy Hx of ankle fusion Family History (Updated 12/18/23 @ 09:41 by Cuco Castillo MD) Father No problems noted. Mother Kidney problem Social History Household Members: None Alcohol intake: current Alcohol intake frequency: holidays/special occasions only Patient Tobacco Use Status: Current everyday Tobacco user Tobacco use type: Cigarette Cigarettes Per Day: 2 Review of Systems Const All systems reviewed & are unremarkable except as noted in HPI and below Reports as per HPI and Reports no additional complaints Eyes Reports as per HPI and Denies no additional complaints ENT Denies no additional complaints and Reports as per HPI Card Reports lightheadedness, Reports palpitations and Reports dyspnea Resp Reports dyspnea GI Reports as per HPI and Denies no additional complaints Reports as per HPI Musc Reports no additional complaints and Reports as per HPI Skin/Breast Reports system reviewed and no additional complaints, except as documented Neuro Reports no additional complaints and Reports as per HPI Psych Reports no additional complaints and Reports as per HPI Endo Reports palpitations Luis/Lymph Reports no additional complaints and Reports as per HPI Aller/Immun Reports no additional complaints and Reports as per HPI Physical Exam Vital Signs: Last Vital Signs Pulse 87 12/18/23 09:24 BP 140/78 H 12/18/23 09:24 Pulse Ox 99 12/18/23 09:24 Oxygen Delivery Method Room Air 12/18/23 09:24 BMI result Body Mass Index 30.2 Const General: comfortable and no acute distress Orientation/consciousness: patient oriented x3 HEENT Other: Unremarkable Head: Yes normal to inspection Neck Neck: Yes normal visual inspection Chest Chest palpation & inspection: normal inspection of the chest Resp Auscultation: clear to auscultation bilaterally Cardio Palpation: normal PMI Heart sounds: S1 normal heart sound present, S2 normal heart sound present, no gallops, no murmurs and no rubs GI Palpation (GI): Soft to palpation Back/Spine/Pelvis Other: unremarkable Skin General skin exam: no rashes or lesions noted Neuro General: patient oriented x3 Extrem General: Yes normal to inspection Psych Mental Status: mental status grossly normal Assessment & Plan Assessment & Plan (1) LBBB (left bundle branch block): Code(s): I44.7 - Left bundle-branch block, unspecified Plan EKG from September shows sinus tachycardia with left bundle-branch block. EKG from today also shows left bundle-branch block. Unknown chronicity. We will pursue further workup for cardiomyopathy as well as underlying coronary disease. Findings discussed with patient as well as daughter and they understand and agree. Follow-up after the above. Orders: Orders CA lexiscan stress w ish Today I20.9 - Angina pectoris, unspecified, I44.7 - Left bundle-branch block, unspecified CA echo transthoracic complete Today I44.7 - Left bundle-branch block, unspecified NM cardiolite stress test Today I44.7 - Left bundle-branch block, unspecified, R07.2 - Precordial pain Coding Level of Care Code New Pt Level 4 (01574) Diagnoses LBBB (left bundle branch block) I44.7
== END 2023-12-18 09:45 | disposition home or self-care (01) ==
PROVIDERS: PCP Student in an Organized Health Care Education/Training Program; Visit Provider Internal Medicine
DX: I44.7 Left bundle-branch block, unspecified (principal)
CPT/HCPCS: 99204

== ENCOUNTER → 2023-12-18 09:04 | Outpatient (BNVA) | payer MEDICARE, SELFPAY | PROVIDERS: PCP Student in an Organized Health Care Education/Training Program; Visit Provider Internal Medicine | DX: I44.7 Left bundle-branch block, unspecified (principal) | CPT/HCPCS: 99202 ==

== ENCOUNTER 2023-12-22 10:10 | Outpatient (AMB) | payer MEDICARE, SELFPAY ==
--- NOTE | 2023-12-22 10:19 | MHC.OFFVIS ---
Intake Vital Signs 12/22/23 10:23 Height 5 ft Weight 155 lb 3.287 oz BMI 30.3 BP 154/82 H Blood Pressure Location Lt brachial Position Sitting Pulse 77 Intake Visit Reasons: 2 month follow up Intake Note: Patient is seen in office for 2 month follow up visit, following diverticulosis of colon. 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 Initially planned EGD as well however that was to be rescheduled due to dental issue She was found to have abnormal EKG during procedure and had been referred to Cardiology Here with her daughter- eating HFD-bowels are normal drinking lots of water-she is very nervous having cardiac issues she was seen recently in cardiology Cardiology consult from November and is undergoing further evaluation.She says she is not comfortable Her appetite has been good, her bowels have been much improved since having her colonoscopy She has no GI complaints at all= no nausea vomiting diarrhea She has not had any headaches, dizziness, cough, chest pain or shortness of breath PFSH Surgical History Hx of colonoscopy Hx of tubal ligation Hx of malignant neoplasm of head and neck Hx of hysterectomy Hx of ankle fusion Family History Father No problems noted. Mother Kidney problem Social History Household Members: None Alcohol intake: current Alcohol intake frequency: holidays/special occasions only Patient Tobacco Use Status: Current everyday Tobacco user Tobacco use type: Cigarette Cigarettes Per Day: 2 Review of Systems Const All systems reviewed & are unremarkable except as noted in HPI and below Card Denies chest pain and Denies dyspnea Resp Denies dyspnea GI Denies abdominal pain and Denies constipation (Much improved with high-fiber diet) Psych Reports anxiety Physical Exam Vital Signs: Last Vital Signs Pulse 77 12/22/23 10:23 BP 154/82 H 12/22/23 10:23 BMI result Body Mass Index 30.3 Const General: cooperative, healthy appearing, comfortable, no acute distress, well developed and anxious Orientation/consciousness: patient oriented x3 Limitations: language barrier Eyes Sclerae: sclerae normal Resp Effort & Inspection: normal respiratory effort and able to speak in complete sentences Auscultation: clear to auscultation bilaterally, no rales, no rhonchi and no wheezes Cardio Rate: regular rate Rhythm: regular rhythm Heart sounds: S1 normal heart sound present and S2 normal heart sound present GI Palpation (GI): Soft to palpation and nontender Auscultation: normal bowel sounds Neuro General: patient oriented x3 Extrem Other: uses cane Psych Appearance: grossly normal and well kempt Mental Status: mental status grossly normal Speech and movement: Normal speech and movement present Affect: normal affect and Anxious affect present Thought process: Normal thought process present Thought content: Normal thought content present Insight: Good insight present (Psych) Judgement: Good judgement present (Psych) Results Reviewed Results Reviewed: Impression and Post Procedure Diagnosis: polyps internal hemorrhoids diverticular disease Plan: High fiber diet leaflet Avoid straining at stool, epsom salts and sitz bath, anusol supps or cream Repeat Colonoscopy in 3-6 months or earlier if clinically indicated Name: Stefanie Montanez Age/Sex: 73/F Attending: Mami Ochoa MD : 1950 Submitted by: Mami Ochoa MD Copies to: Aarti Koch MD MR #: [id number] Status: [facility] Collected: 10/08/23 Location: [facility] Received: 10/08/23 Diagnosis A. Colon, ascending, polypectomies: Fragments of tubular adenomata; negative for high-grade dysplasia or carcinoma. B. Colon, descending, polypectomies: Tubular adenomata; negative for high-grade dysplasia or carcinoma. C. Rectum, polypectomy: Hyperplastic mucosal polyp. Clinical History Pre-Op Dx: Screening Post-Op Dx: Diverticulosis, hemorrhoids, polyps Microscopic Description Assessment & Plan Assessment & Plan (1) Tubular adenoma: Comment: Again Reviewed procedure report, pathology recommendation Seen Cardiology in November-reviewed note Code(s): D36.9 - Benign neoplasm, unspecified site (2) Hemorrhoids: Code(s): K64.9 - Unspecified hemorrhoids Plan: Maintain high-fiber diet avoid straining (3) LBBB (left bundle branch block): Comment: Continue to follow with cardiology Code(s): I44.7 - Left bundle-branch block, unspecified Plan: Will see back after cardiology complete scheduled for repeat colonoscopy as well as an EGD (4) Diverticulosis of colon: Code(s): K57.30 - Diverticulosis of large intestine without perforation or abscess without bleeding Plan: Maintain high-fiber diet (5) Chronic constipation: Code(s): K59.09 - Other constipation Plan: High-fiber diet Plan Follow-up after cardiology 8 Patient Instructions: Continue to follow with cardiology as scheduled Maintain high-fiber diet Avoid straining, Diverticulosis/diverticulitis ER protocol review Reflux precautions reviewed avoid culprits Encouraged to call questions or concerns See back in a week's discuss repeat colonoscopy as well add EGD Coding Level of Care Code Est Pt Level 3 (34625) Diagnoses Tubular adenoma D36.9 Hemorrhoids K64.9 LBBB (left bundle branch block) I44.7 Diverticulosis of colon K57.30 Chronic constipation K59.09 Time Spent (min) 20 Comment Daughter present-
[2023-12-22 10:23] VITALS: BP 154/82; PULSE 77; BMI 30.3
== END 2023-12-22 10:52 | disposition home or self-care (01) ==
PROVIDERS: PCP Student in an Organized Health Care Education/Training Program; Visit Provider Physician Assistant
DX: D36.9 Benign neoplasm, unspecified site (principal); K64.9 Unspecified hemorrhoids; I44.7 Left bundle-branch block, unspecified; K57.30 Diverticulosis of large intestine without perforation or abscess without bleeding; K59.09 Other constipation
CPT/HCPCS: 99213

== ENCOUNTER → 2023-12-22 10:10 | Outpatient (BNVA) | payer MEDICARE, SELFPAY | PROVIDERS: PCP Student in an Organized Health Care Education/Training Program; Visit Provider Physician Assistant | DX: D36.9 Benign neoplasm, unspecified site (principal); K64.9 Unspecified hemorrhoids; K57.30 Diverticulosis of large intestine without perforation or abscess without bleeding; K59.09 Other constipation; I44.7 Left bundle-branch block, unspecified | CPT/HCPCS: 99212 ==

== ENCOUNTER → 2024-02-06 10:54 | Outpatient (REF) | payer MEDICARE, SELFPAY ==
--- NOTE | 2024-02-06 10:57 | CA_ITS ---
Transthoracic Echocardiogram Patient (Last, First, Middle): Stefanie Montanez, Gender: Female Date of : 1950 Age: 73 Procedure Date: 02/06/2024 Procedure Type: Transthoracic Echocardiogram Location: OP Height: 154.94 cm Weight: 68.49 kg BSA: 1.68 m2 Heart Rate: bpm BP: 150 / 78 mmHg Policy Director: TO Referring MD: Cuco Castillo MD Symptoms: I44.7 - Left bundle-branch block, unspecified Study Quality: Fair Conclusions: - Normal left ventricular cavity size. The left ventricular systolic function is mild to moderately decreased. The visually estimated ejection fraction is between 35-40%. - Normal right ventricular cavity size and systolic function. Findings Procedure Information The patient declines contrast. Left Ventricle Normal left ventricular cavity size. The left ventricular systolic function is mild to moderately decreased. The visually estimated ejection fraction is between 35-40%. There is paradoxical septal motion consistent with a left bundle branch block. Diastolic function is indeterminate on the basis of available data. There is moderate septal asymmetric hypertrophy. Right Ventricle Normal right ventricular cavity size and systolic function. Atria The left atrium is mildly dilated. The right atrium is normal in size. Aortic Valve Normal aortic valve structure and function. There is no aortic valve stenosis. There is no aortic valve regurgitation. Mitral Valve The mitral valve appears normal. There is trace mitral valve regurgitation. There is no mitral valve stenosis. Pulmonic Valve The pulmonic valve is normal. There is no pulmonic valve regurgitation. Tricuspid Valve Normal tricuspid valve structure. There is no tricuspid valve regurgitation. Normal right atrial pressure. There is no evidence of pulmonary hypertension. Great Vessels All visible segments of the aorta are normal in size. The visualized portions of the pulmonary artery and branches are normal. Venous The inferior vena cava is normal in size and collapses greater than 50% with inspiration. Pericardium/Pleural There is no evidence of pericardial effusion. Measurements 2D Linear Measurements IVSd: 1.42 0.6-0.9/0.6-1.0 cm LVIDd: 4.24 3.9-5.3/4.2-5.9 cm LVIDd Index: 2.52 2.4-3.2/2.2-3.1 cm/m2 LVIDs: 3.09 2.0-3.6 cm LVPWd: 0.90 0.7-1.1 cm LA Diam: 3.50 2.7-3.8/3.0-4.0 cm LAIDs Index: 2.08 1.5-2.3 cm/m2 LV Mass: 214.32 67-162/88-224 g LV Mass Index: 127.57 43-95/49-115 g/m2 LVOT Diam: 2.00 3.0+(-)1.3 cm 2D Systolic Function EF 4C: 40.20 >55% EF 2C: 44.70 >55% EF BiP: 42.30 >55% Mitral Valve MV Pk E: 0.62 MV PK A: 0.89 MV Decel Time: 131.00 E/A: 0.70 E'Lateral: 5.66 E'Medial: 3.92 E/E' Med: 15.90 E/E' Lat: 11.00 PHT: 38.00 MVA PHT: 5.79 Decel [place]: 4.78 Aortic Valve AoV Pk Misha: 1.32 AoV Mn Misha: 0.98 AoV VTI: 0.27 AoV Pk Grad: 7.00 Aov Mn Grad: 4.00 DAVID Cont.VTI: 1.97 LVOT LVOT Pk Misha: 0.97 LVOT Mn Misha: 0.58 LVOT VTI: 0.17 LVOT Pk Grad: 4.00 LVOT Mn Grad: 2.00 LVOT Diam: 2.00 LVOT Area: 3.14 Diastolic Function MV Pk E: 0.62 MV Pk A: 0.89 E/A: 0.70 E'Medial: 3.92 E/E' Med: 15.90 E' Laterial: 5.66 E/E' Lat: 11.00 Right Ventricle TAPSE (mm): 18.30 TVS' Misha: 15.90 Tricuspid Valve TR Pk Misha: 1.75 TR Pk Grad: 12.00 RA Press: 3.00 RVSP: 15.00 Great Vessels Aorta Sinus of Valsalva: 3.16 2.0-3.5 cm Ao Asc: 3.10 2.1-3.4 cm Updated in Other Vendor System with Status of Final Puma Pablo MD electronically signed on 02/07/2024 11:01:24 PM with status of Final
== END ==
LOC: HO.CARD 10:54
PROVIDERS: PCP Student in an Organized Health Care Education/Training Program; Visit Provider Internal Medicine
DX: I44.7 Left bundle-branch block, unspecified (principal)
CPT/HCPCS: 93306

== ENCOUNTER 2024-03-04 09:17 | Outpatient (AMB) | payer OTHER, SELFPAY ==
[2024-03-04 09:19] VITALS: BP 140/82; PULSE 78; BMI 30.5
--- NOTE | 2024-03-04 09:19 | A.OFFVIS_ITS ---
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 She underwent echocardiogram and now presents for follow-up. She did have a nuclear stress test order but she refused to complete at that time. Today she reports that she does have shortness of breath with stair climbing and walking distances. She ambulates with a cane due to a fusion of her left ankle. She denies shortness of breath at rest, PND, orthopnea or edema. No chest discomfort at rest or with activity. No heart palpitations, lightheadedness, presyncope, syncope, falls. Sister is present and assisting with [place] Islander translation at their request. Permit signed. [facility] Surgical History Hx of colonoscopy Hx of tubal ligation Hx of malignant neoplasm of head and neck Hx of hysterectomy Hx of ankle fusion Family History Father No problems noted. Mother Kidney problem Social History Household Members: None Alcohol intake: current Alcohol intake frequency: holidays/special occasions only Patient Tobacco Use Status: Current everyday Tobacco user Tobacco use type: Cigarette Cigarettes Per Day: 2 Review of Systems Const All systems reviewed & are unremarkable except as noted in HPI and below ENT Denies dizziness Card Denies chest pain, Denies chest pain at rest, Denies chest pain with activity, Denies rapid heart rate, Denies pedal edema, Denies edema, Denies leg edema, Denies lightheadedness, Denies palpitations, Denies dyspnea, Reports dyspnea on exertion and Denies orthopnea Resp Denies cough, Denies dyspnea and Reports dyspnea on exertion GI Denies hematochezia and Denies change in stool character Musc Details: uses cane Reports abnormal gait, Reports limited range of motion (fused left ankle), Denies muscle cramps, Denies muscle weakness, Denies numbness, Denies radiating pain into limb, Denies stiffness and Denies tingling Neuro Reports abnormal gait, Denies dizziness, Denies numbness and Denies tingling Endo Denies palpitations Physical Exam Vital Signs: Last Vital Signs Pulse 78 03/04/24 09:19 BP 140/82 H 03/04/24 09:19 BMI result Body Mass Index 30.5 Const General: cooperative, healthy appearing, comfortable and no acute distress Orientation/consciousness: patient oriented x3 Neck Neck: Yes normal visual inspection and Yes no JVD Resp Effort & Inspection: normal respiratory effort Auscultation: clear to auscultation bilaterally, no rales, no rhonchi and no wheezes Cardio Jugular venous distension: no JVD Rate: regular rate Rhythm: regular rhythm Heart sounds: S1 normal heart sound present, S2 normal heart sound present, no murmurs and no rubs Neuro General: patient oriented x3 Extrem General: Yes normal to inspection and No no pedal edema Psych Appearance: grossly normal Mental Status: mental status grossly normal Speech and movement: Normal speech and movement present Assessment & Plan Assessment & Plan (1) LBBB (left bundle branch block): Comment: Continue to follow with cardiology Code(s): I44.7 - Left bundle-branch block, unspecified Category: Medical Plan: EKG done 10/08/2023 showing sinus tachycardia, left bundle branch block. She had no known cardiac history. On last visit echocardiogram was ordered and done on 02/06/2024 showing EF 35-40%, paradoxical septal motion consistent with left bundle branch block, no significant valve abnormalities and normal RV function. A pharmacological nuclear stress test had been ordered however patient declined. She was very fearful of having the IV. I spent 15 minutes with her going over every detail of the pharmacological nuclear stress test and IV placement, medications that would be used and potential side effects. She is now agreeable to proceed with the pharmacological nuclear stress test. Will notify centralized scheduling. (2) Cardiomyopathy: Code(s): I42.9 - Cardiomyopathy, unspecified Category: Medical Plan: Finding of new cardiomyopathy on recent echocardiogram. On examination she has no clinical signs of heart failure. She does have shortness of breath with exertional type activities however is mostly sedentary. Her activity is limited by a fused left ankle and she ambulates with a cane. Unclear at this time if her cardiomyopathy is ischemic versus nonischemic. Nuclear stress test being done. It could be related to her left bundle branch block which is of unknown chronicity. Blood pressure is mildly elevated today. Will start her on carvedilol 3.125 mg b.i.d.. No recent labs for review. Will have her do CMP, lipids. Plan to start on Entresto at follow-up if blood pressure allows. Diagnosis of cardiomyopathy reviewed with her. Possible underlying causes reviewed. Cardiology follow-up 4 weeks, sooner if needed. Plan Time spent on chart review, documentation, interview and assessment Orders: Orders Lipid Panel Today I42.9 - Cardiomyopathy, unspecified Comprehensive Met. Panel Today I42.9 - Cardiomyopathy, unspecified Medications: New carvedilol must administer with a meal/food 3.125 mg PO BID 60 tabs 5RF Coding Level of Care Code Est Pt Level 4 (24349) Diagnoses LBBB (left bundle branch block) I44.7 Cardiomyopathy I42.9 Time Spent (min) 28
== END 2024-03-04 09:53 | disposition home or self-care (01) ==
PROVIDERS: PCP Student in an Organized Health Care Education/Training Program; Visit Provider Nurse Practitioner Family
DX: I44.7 Left bundle-branch block, unspecified (principal); I42.9 Cardiomyopathy, unspecified
CPT/HCPCS: 99214

== ENCOUNTER → 2024-03-04 09:17 | Outpatient (BNVA) | payer MEDICARE, SELFPAY | PROVIDERS: PCP Student in an Organized Health Care Education/Training Program; Visit Provider Nurse Practitioner Family | DX: I42.9 Cardiomyopathy, unspecified (principal); I44.7 Left bundle-branch block, unspecified | CPT/HCPCS: 99212 ==

== ENCOUNTER 2024-05-21 09:45 | Outpatient (REF) | payer OTHER, SELFPAY | END 2024-05-21 09:46 | disposition home or self-care (01) | LOC: HO.MAMMO 09:45 | PROVIDERS: PCP Student in an Organized Health Care Education/Training Program; Visit Provider Student in an Organized Health Care Education/Training Program | DX: Z13.89 Encounter for screening for other disorder (principal) ==

== ENCOUNTER → 2024-05-25 07:48 | Outpatient (REF) | payer OTHER, SELFPAY ==
--- NOTE | ~2024-05-25 | NM_ITS ---
Lexiscan Myocardial perfusion study Indication: Cardiomyopathy, left bundle branch block Technique: The patient was brought in for a Lexiscan perfusion study on 05/25/2024 and was injected 0.4 mg of Lexiscan intravenously. Within a minute of this injection 25 mCi of sestamibi was given intravenously. Images were obtained using the SPECT gamma camera interlaced with the gating device. Images were obtained in supine position. Resting perfusion study was performed on 06/02/2024. Patient was administered 25 mCi of sestamibi intravenously at rest. Images were then obtained in supine position. Images were processed with the software and compared side to side in short axis, horizontal long axis and vertical long axis views. Total DLP 98mGy-cm. Findings: Raw acquisition reviewed. The stress perfusion study showed mildly diminished tracer uptake in the distal part of anterior wall. There is improvement with CT attenuation correction and hence could've components of soft tissue attenuation artifact. The gated study shows mildly diminished LV systolic function with calculated LVEF of 49%. LV cavity is normal in size. The gated study shows normal wall thickening and contraction of segments. Resting study shows no significant perfusion abnormality. Gating at rest reveals normal wall motion with ejection fraction at 44%. The findings are consistent with mild reversible distal anterior defect that could be artifactual. Otherwise, no clear reversible or fixed defects. NM/NM cardiolite stress test Impression: 1. Myocardial perfusion imaging study shows probably normal myocardial perfusion. No definitive findings to suggest ischemia or infarction. 2. Gated LVEF is 49% during stress and 44% during rest. Correlate with echocardiogram. 3. Transient ischemic dilatation not present. EKG component of the test reported separately.
--- NOTE | 2024-05-25 07:50 | CA_ITS ---
Acquisition Time: 2024-05-25 07:49:48 Total Exercise Time: 00:02:00 Test Indications: LBBB, SOB Medications: SEE H Protocol: LEXISCAN Max HR: 113 BPM 75% of Pred: 149 BPM Max BP: 190/090 mmHG Max Work Load: 1.0 METS Pharmacological stress test with Lexiscan injection while sitting, with mild SOB, 4-5/10 tightness, without arrhythmias, with normotensive response to injection, with nondiagnostic EKGs. Aminophyllien 75mg IVP given to reverse Lexiscan. Nuclear images pending. Chest tightness and breathing returned to baseline. Test reviewed with Dr. Pablo. Referred By: Cuco Castillo Overread By: Keysha Brooks
== END ==
LOC: HO.CARD 07:48
PROVIDERS: PCP Student in an Organized Health Care Education/Training Program; Visit Provider Internal Medicine
DX: R07.2 Precordial pain (principal); I20.9 Angina pectoris, unspecified; I44.7 Left bundle-branch block, unspecified
CPT/HCPCS: 78452; 93017; A9500; J0280; J2785

== ENCOUNTER → 2024-05-25 07:50 | Outpatient (BNV) | payer OTHER, SELFPAY | PROVIDERS: PCP Student in an Organized Health Care Education/Training Program; Visit Provider Nurse Practitioner | DX: I42.9 Cardiomyopathy, unspecified (principal); I44.7 Left bundle-branch block, unspecified | CPT/HCPCS: 78452; 93016; 93018 ==

== ENCOUNTER 2024-05-31 08:46 | Outpatient (AMB) | payer OTHER, SELFPAY ==
[2024-05-31 09:01] VITALS: BP 162/80; PULSE 87; BMI 31.4
--- NOTE | 2024-05-31 09:01 | MHC.OFFVIS ---
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 Allergies Sulfa (Sulfonamide Antibiotics) [SULFA (SULFONAMIDE ANTIBIOTICS)] Allergy (Unknown, Verified 05/31/24 09:03) RASH Medication List - Last Reconciled 05/31/24 by Sneha Ramirez NP-C amitriptyline 10 mg PO BEDTIME betamethasone dipropionate 0.05% 1 appl topical BID calcium carbonate-vitamin D3 500 mg-10 mcg (400 unit) (Calcium 500 With D) 1 tab PO DAILY carvedilol 3.125 mg PO BID gemfibrozil mg PO DAILY ibuprofen 800 mg PO BID PRN omeprazole 20 mg PO DAILY rosuvastatin 5 mg PO DAILY HPI HPI f/up after test: Details: Stefanie is a 73-year-old female with past medical history of left bundle branch block, newer finding of cardiomyopathy who will be completing her nuclear stress test in 2 days but has follow-up visit today. Today she reports that she will be doing the rest portion of her stress test on 06/02/2024. She continues to have issues with shortness of breath with stair climbing and walking distances. She ambulates with a cane due to a fusion of her left ankle. She denies shortness of breath at rest, PND, orthopnea or edema. No chest discomfort at rest or with activity. She was feeling heart palpitations with the use of carvedilol and has since stopped that medication. She is no longer noticing the heart palpitations. No lightheadedness, presyncope, syncope, falls. Sister is present and assisting with Haitian translation at their request. Permit signed. [facility] Surgical History Hx of colonoscopy Hx of tubal ligation Hx of malignant neoplasm of head and neck Hx of hysterectomy Hx of ankle fusion Family History Father No problems noted. Mother Kidney problem Social History Household Members: None Alcohol intake: current Alcohol intake frequency: holidays/special occasions only Patient Tobacco Use Status: Current everyday Tobacco user Tobacco use type: Cigarette Cigarettes Per Day: 2 Review of Systems Const All systems reviewed & are unremarkable except as noted in HPI and below ENT Denies dizziness Card Denies chest pain, Denies chest pain at rest, Denies chest pain with activity, Denies rapid heart rate, Denies pedal edema, Denies edema, Denies leg edema, Denies lightheadedness, Denies palpitations, Denies dyspnea, Denies dyspnea on exertion and Denies orthopnea Resp Denies cough, Denies dyspnea and Denies dyspnea on exertion GI Denies hematochezia and Denies change in stool character Musc Denies abnormal gait, Denies limited range of motion, Denies muscle cramps, Denies muscle weakness, Denies numbness, Denies radiating pain into limb, Denies stiffness and Denies tingling Neuro Denies abnormal gait, Denies dizziness, Denies numbness and Denies tingling Endo Denies palpitations Physical Exam Vital Signs: Last Vital Signs Pulse 87 05/31/24 09:01 BP 162/80 H 05/31/24 09:01 BMI result Body Mass Index 31.4 Const General: cooperative, healthy appearing, comfortable and no acute distress Orientation/consciousness: patient oriented x3 Neck Neck: Yes normal visual inspection and Yes no JVD Resp Effort & Inspection: normal respiratory effort Auscultation: clear to auscultation bilaterally, no rales, no rhonchi and no wheezes Cardio Jugular venous distension: no JVD Rate: regular rate Rhythm: regular rhythm Heart sounds: S1 normal heart sound present, S2 normal heart sound present, no murmurs and no rubs Neuro General: patient oriented x3 Extrem General: Yes normal to inspection and No no pedal edema Psych Appearance: grossly normal Mental Status: mental status grossly normal Speech and movement: Normal speech and movement present Assessment & Plan Assessment & Plan (1) LBBB (left bundle branch block): Comment: Continue to follow with cardiology Code(s): I44.7 - Left bundle-branch block, unspecified Category: Medical Plan: EKG done 10/08/2023 showing sinus tachycardia, left bundle branch block. She had no known cardiac history at that time. On last visit echocardiogram was ordered and done on 02/06/2024 showing EF 35-40%, paradoxical septal motion consistent with left bundle branch block, no significant valve abnormalities and normal RV function. A pharmacological nuclear stress test had been ordered and patient initially declined. She has since completed the stress portion and will be having the rest portion in 2 days. Will plan to call her with test results. (2) Cardiomyopathy: Code(s): I42.9 - Cardiomyopathy, unspecified Category: Medical Plan: Finding of new cardiomyopathy on recent echocardiogram. On examination she has no clinical signs of heart failure. She does have shortness of breath with exertional type activities however is mostly sedentary. Her activity is limited by a fused left ankle and she ambulates with a cane. Unclear at this time if her cardiomyopathy is ischemic versus nonischemic. Nuclear stress test being done. It could be related to her left bundle branch block which is of unknown chronicity. Blood pressure is mildly elevated today. On last visit she was put on carvedilol but she says it gave her heart palpitations and she has since stopped that medication. She has not completed any recent labs. Instructed to do so when she comes for the rest portion of her stress test. Once labs reviewed will plan to start on Entresto. Diagnosis of cardiomyopathy reviewed with her. Possible underlying causes reviewed. Cardiology follow-up 6-8 weeks, sooner if needed. Plan for further med adjustments/titration at that time. Plan Time spent on chart review, documentation, interview and assessment Coding Level of Care Code Est Pt Level 3 (72323) Diagnoses LBBB (left bundle branch block) I44.7 Cardiomyopathy I42.9 Time Spent (min) 26
== END 2024-05-31 09:29 | disposition home or self-care (01) ==
PROVIDERS: PCP Student in an Organized Health Care Education/Training Program; Visit Provider Nurse Practitioner Family
DX: I44.7 Left bundle-branch block, unspecified (principal); I42.9 Cardiomyopathy, unspecified
CPT/HCPCS: 99213

== ENCOUNTER → 2024-05-31 08:46 | Outpatient (BNVA) | payer OTHER, SELFPAY | PROVIDERS: PCP Student in an Organized Health Care Education/Training Program; Visit Provider Nurse Practitioner Family | DX: I44.7 Left bundle-branch block, unspecified (principal); I42.9 Cardiomyopathy, unspecified | CPT/HCPCS: 99212 ==

== ENCOUNTER 2024-06-02 10:21 | Outpatient (REF) | payer OTHER, SELFPAY ==
[2024-06-02 11:50] LABS: Estimated Average Glucose 123 mg/dL; Hemoglobin A1c % 5.9 % (<6.0)
[2024-06-02 12:31] LABS: Alanine Aminotransferase 14 U/L (0-31); Albumin Level 4.1 g/dL (3.5-5.0); Alkaline Phosphatase 102 U/L (39-117); Anion Gap 12 (12-20); Aspartate Amino Transferase 20 U/L (5-31); Bilirubin Direct 0.1 mg/dL (0.0-0.5); Bilirubin Total 0.4 mg/dL (0.0-1.0); Blood Urea Nitrogen 13 mg/dL (9-16); Calcium 9.4 mg/dL (8.4-10.2); Carbon Dioxide 23 mmol/L (22-29); Chloride 108 mmol/L (96-108); Cholesterol 235 mg/dL (<200); Estimated Glomerular Filt Rate > 60; Glucose Random 122 mg/dL (60-115); HDL Cholesterol 66 mg/dL (>40); Potassium 4.3 mmol/L (3.3-5.1); Sodium 139 mmol/L (135-145); Total Protein 7.7 g/dL (6.5-8.0)
[2024-06-02 12:33] LABS: Creatinine Urine 168.53 mg/dL
[2024-06-02 13:53] LABS: LDL Cholesterol Calculated 150 mg/dL (<100); Triglycerides 99 mg/dL (<150)
== END 2024-06-02 10:22 | disposition home or self-care (01) ==
LOC: HO.LAB 10:21
PROVIDERS: PCP Student in an Organized Health Care Education/Training Program; Visit Provider Student in an Organized Health Care Education/Training Program
DX: E11.9 Type 2 diabetes mellitus without complications (principal); E78.2 Mixed hyperlipidemia
CPT/HCPCS: 36415; 80048; 80061; 80076; 82043; 82570; 83036

== ENCOUNTER 2024-07-28 09:16 | Outpatient (AMB) | payer OTHER, SELFPAY ==
[2024-07-28 09:21] VITALS: BP 140/82; PULSE 89; BMI 31.5
--- NOTE | 2024-07-28 09:21 | A.OFFVIS_ITS ---
Vital Signs 07/28/24 09:21 Height 5 ft Weight 161 lb 6.054 oz BMI 31.5 BP 140/82 H Blood Pressure Location Rt brachial Position Sitting Pulse 89 Pulse Source Pulse Oximeter Intake Visit Reasons: 7 wk f/up DC Wad Lubricator Required: No Accompanied by: Daughter Allergies Sulfa (Sulfonamide Antibiotics) [SULFA (SULFONAMIDE ANTIBIOTICS)] Allergy (Unknown, Verified 05/31/24 09:03) RASH Medication List - Last Reconciled 07/28/24 by Cuco Castillo MD amitriptyline 10 mg PO BEDTIME betamethasone dipropionate 0.05% 1 appl topical BID calcium carbonate-vitamin D3 500 mg-10 mcg (400 unit) (Calcium 500 With D) 1 tab PO DAILY carvedilol 3.125 mg PO BID gemfibrozil mg PO DAILY ibuprofen 800 mg PO BID PRN omeprazole 20 mg PO DAILY rosuvastatin 5 mg PO DAILY sacubitril-valsartan 24-26 mg (Entresto) 1 tab PO BID HPI Comments Details: Stefanie returns for follow-up regarding left bundle-branch block. Recently note on EKGs setting of getting colonoscopy. Patient herself states she generally feels okay. Some shortness of breath with moderate to severe activity but not with mild activity. No angina. She has undergone an echocardiogram and stress test. On a small dose of Coreg as well as Entresto. [facility] Medical History (Updated 07/28/24 @ 09:49 by Cuco Castillo MD) Primary hypertension Surgical History Hx of colonoscopy Hx of tubal ligation Hx of malignant neoplasm of head and neck Hx of hysterectomy Hx of ankle fusion Family History Father No problems noted. Mother Kidney problem Social History Household Members: None Alcohol intake: current Alcohol intake frequency: holidays/special occasions only Patient Tobacco Use Status: Current everyday Tobacco user Tobacco use type: Cigarette Cigarettes Per Day: 2 Review of Systems Const Denies chills, Denies fatigue, Denies fever(s), Denies frequent falls, Denies weakness, Denies weight gain and Denies weight loss ENT Denies dizziness Card Denies chest pain, Denies leg edema, Denies lightheadedness, Denies palpitations, Denies dyspnea and Denies dyspnea on exertion Resp Denies cough, Denies dyspnea and Denies dyspnea on exertion GI Denies hematochezia Musc Denies abnormal gait, Denies muscle weakness, Denies numbness, Denies radiating pain into limb and Denies tingling Neuro Denies abnormal gait, Denies dizziness, Denies frequent falls, Denies numbness, Denies tingling and Denies weakness Endo Denies fatigue and Denies palpitations Physical Exam Vital Signs: Last Vital Signs Pulse 89 07/28/24 09:21 BP 140/82 H 07/28/24 09:21 BMI result Body Mass Index 31.5 Const General: comfortable and no acute distress Orientation/consciousness: patient oriented x3 HEENT Other: Unremarkable Head: Yes normal to inspection Neck Neck: Yes normal visual inspection Chest Chest palpation & inspection: normal inspection of the chest Resp Auscultation: clear to auscultation bilaterally Cardio Palpation: normal PMI Heart sounds: S1 normal heart sound present, S2 normal heart sound present, no gallops, no murmurs and no rubs GI Palpation (GI): Soft to palpation Back/Spine/Pelvis Other: unremarkable Skin General skin exam: no rashes or lesions noted Neuro General: patient oriented x3 Extrem General: Yes normal to inspection Psych Mental Status: mental status grossly normal Assessment & Plan Assessment & Plan (1) LBBB (left bundle branch block): Code(s): I44.7 - Left bundle-branch block, unspecified Category: Medical (2) Cardiomyopathy: Code(s): I42.9 - Cardiomyopathy, unspecified Category: Medical (3) Primary hypertension: Code(s): I10 - Essential (primary) hypertension Category: Medical Plan Echocardiogram with LVEF of 35-40%. Moderate septal hypertrophy. Otherwise unremarkable. Myocardial perfusion imaging study shows probably normal perfusion. Overall, left bundle-branch block with associated cardiomyopathy but no overt heart failure. Blood pressure seems to be on the higher side. Home blood pressures are also on the higher side. We can go up on the dose of Entresto. Continue carvedilol. No need for diuretics at this time. Check labs later this month after taking the higher dose of Entresto. Discussed. Follow-up in about 6 months' time with an echocardiogram. Orders: Orders Basic Metabolic Panel 3 Weeks I42.9 - Cardiomyopathy, unspecified B Type Natriuretic Peptide 3 Weeks I42.9 - Cardiomyopathy, unspecified CA echo transthoracic complete 6 Months I42.9 - Cardiomyopathy, unspecified Medications: New sacubitril-valsartan 49-51 mg (Entresto) 1 tab PO BID 180 tabs 3RF 90 days Discontinued sacubitril-valsartan 24-26 mg (Entresto) Discontinued Reason: Doctor's Order 1 tab PO BID 60 tabs 5RF Coding Level of Care Code Est Pt Level 4 (42606) Diagnoses LBBB (left bundle branch block) I44.7 Cardiomyopathy I42.9 Primary hypertension I10
== END 2024-07-28 09:39 | disposition home or self-care (01) ==
PROVIDERS: PCP Student in an Organized Health Care Education/Training Program; Visit Provider Internal Medicine
DX: I44.7 Left bundle-branch block, unspecified (principal); I42.9 Cardiomyopathy, unspecified; I10 Essential (primary) hypertension
CPT/HCPCS: 99214

== ENCOUNTER → 2024-07-28 09:16 | Outpatient (BNVA) | payer OTHER, SELFPAY | PROVIDERS: PCP Student in an Organized Health Care Education/Training Program; Visit Provider Internal Medicine | DX: I44.7 Left bundle-branch block, unspecified (principal); I42.9 Cardiomyopathy, unspecified; I10 Essential (primary) hypertension | CPT/HCPCS: 99212 ==

== ENCOUNTER 2024-09-15 10:15 | Outpatient (REF) | payer OTHER, SELFPAY ==
[2024-09-15 11:55] LABS: Anion Gap 12 (12-20); Blood Urea Nitrogen 17 mg/dL (9-16); Calcium 9.1 mg/dL (8.4-10.2); Carbon Dioxide 19 mmol/L (22-29); Chloride 110 mmol/L (96-108); Estimated Glomerular Filt Rate > 60; Glucose Random 121 mg/dL (60-115); Potassium 4.1 mmol/L (3.3-5.1); Sodium 137 mmol/L (135-145)
[2024-09-15 12:06] LABS: B Type Natriuretic Peptide 94 pg/mL (<100)
== END 2024-09-15 10:16 | disposition home or self-care (01) ==
LOC: HO.LAB 10:15
PROVIDERS: PCP Student in an Organized Health Care Education/Training Program; Visit Provider Internal Medicine
DX: I42.9 Cardiomyopathy, unspecified (principal)
CPT/HCPCS: 36415; 80048; 83880

== ENCOUNTER 2025-01-06 08:43 | Outpatient (RCR) | payer OTHER, SELFPAY ==
--- NOTE | 2024-11-24 14:10 | MHC.OT.EP ---
[address] [phone] Occupational Therapy Plan of Care Patient Name: Stefanie Montanez Date of Evaluation: 11/23/24 Diagnosis: Pain Location: w/ use of hand and rotation of wrist pain increases to7/10 Pain Score: 2 Pain Scale Used: Numeric (0 - 10) Aggravating Factors: movement Alleviating Factors: heat/ ibuprofen Assessment: Pt is a 74 yr. 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 She reports no pain or swelling after the fall and then a few weeks later seeing Dr. Lindsey due to pain on and swelling on the ulnar side of her wrist. Pt had X-rays which were negative for fractures. She denies splinting/and/or immobilization, but does wear a compression sleeve on her wrist for support. She presents today w/ mild swelling, and has pain w/ UD and wrist extension (which can be common in TFCC injuries). She is also hypersensitive to touch on the ulnar side of her wrist and hand but could not quantify the exact spot due to pt. reporting the whole ulnar side of her hand is sensitive. She would benefit from skilled OT therapy to focus on increased pain free ROM, wrist stability, and functional use of her L hand/wrist. Frequency and Duration: The patient will be seen 2xs a week for 6 weeks Short Term Goals: Pt will report 2/10 pain w/ activity Pt will be complaint w/ her HEP Pt will increase UD of wrist to 20 PAIN FREE Food Safety Coordinator Goals: Pt will report pain free ROM of her L wrist Pt will be able to use her L hand to carry a grocery bag Pt will report RPLOF Treatment Plan: Therapeutic Exercise Therapeutic Activity Home Exercise Program Splinting Neuro Re-ed Patient Education Desensitization/Sensory Re-ed Edema Control ADL Training Ultrasound NMES Iontophoresis Paraffin Fluidotherapy MHP Cold Packs Joint Mobilization Soft Tissue Mobilization Kinesiotaping Other (see comments) Electronically Signed By: Lou Okeefe OTR/L Please Sign and return to therapist. Thank you once again for your referral.
--- NOTE | 2024-11-24 14:11 | MHC.OT.OEV ---
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 She reports no pain or swelling after the fall and then a few weeks later seeing Dr. Lindsey due to pain on and swelling on the ulnar side of her wrist. Pt had X-rays which were negative for fractures. She denies splinting/and/or immobilization, but does wear a compression sleeve on her wrist for support. She presents today w/ mild swelling, and has pain w/ UD and supination (which can be common in TFCC injuries). She is also hypersensitive to touch on the ulnar side of her wrist and hand but could not quantify the exact spot due to pt. reporting the whole ulnar side of her hand is sensitive. She would benefit from skilled OT therapy to focus on increased pain free ROM, wrist stability, and fucntional use of her L hand/wrist. Significant Medical History: Heart problems, Arthritis, HBP, Ankle fussion Precautions/Contraindications: avoid heavy lifting, repeptitive gripping, supination Patient Goals: RPLOF Hand Dominance: Right Observations: QuickDASH Score: 61.36 Prior Level of Function and Occupation Self Care, Employment, Leisure: Living Situation, Family and/or Social Support: Pt is on SSDI ; her daughter is her [employer]ENTRAL OFFICE FRAME W[employer]ER she lives alone in an apartment in [place] Current Level of Function and Occupation Self Care, Employment, Leisure: Pt is on SSDI ; her daughter is her CENTRAL OFFICE FRAME WIRER she lives alone in an apartment in [place] Sleep: no trouble Driving: Can drive; but tries to avoid it (not due to injury) Vision: Balance: Pain Assessment Pain Score: 2 Pain Scale Used: Numeric (0 - 10) Pain Location and Description: w/ use of hand and rotation of wrist pain increases to7/10 Aggravating Factors: movement Alleviating Factors: heat/ ibuprofen Skin and Soft Tissue Assessment Skin and Soft Tissue: Comments: Nerve assessment Ulnar Nerve: Median Nerve: Radial Nerve: WFL Comments: Sensory Assessment Temperature: Light Touch: Proprioception: Vibration: Comments: Edema Assessment Upper Extremity: Left Impaired Lower Extremity: Comments: mild wrist : 17.5 cm R: 17 cm Dexterity Assessment Dexterity: Left Impaired Comments: Special Tests Comments: AROM(PROM) Strength Cervical Cervical Flexion: Cervical Extension: Cervical Lateral Flexion: Cervical Rotation: Comments: Shoulder Flexion: Extension: Abduction: Internal Rotation: External Rotation: Comments: Flexion: Extension: Abduction: Internal Rotation: External Rotation: Comments: Elbow Flexion: Extension: Pronation: L: 85 R: 85 Supination: L: 70 pain R: 85 Comments: Flexion: Extension: Pronation: Supination: Comments: Wrist Flexion: l:75 r:75 Extension: L: 30(MILD PAIN) R: 35 Ulnar Deviation: L:10 PAIN Radial Deviation: Comments: Flexion: Extension: Ulnar Deviation: Radial Deviation: Comments: Thumb Thumb CMC Flexion: Thumb MCP Flexion: Thumb IP Flexion: Radial Abduction: Palmar Abduction: [place] ([place]and[place] 0-10): Comments: Digits Index MCP: PIP: DIP: Long MCP: PIP: DIP: Ring MCP: PIP: DIP: Small MCP: PIP: DIP: Comments: WNL Gross Grasp: Lateral Pinch: Two-Point Pinch: Three-Jaw Kervin: Comments: Patient Education Primary Language: Wiring Technician Required: Yes Current Knowledge: Understands information with skills for self-management Teaching Method: Audio/Video Demonstration Handouts Education Needs Identified on Evaluation: ADL's Disease Information Exercise Pain How did patient/family demonstrate learning? Patient demonstrates Patient verbalizes Barriers to Learning: None Readiness for Learning: Accepting Who was educated? 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 She reports no pain or swelling after the fall and then a few weeks later seeing Dr. Lindsey due to pain on and swelling on the ulnar side of her wrist. Pt had X-rays which were negative for fractures. She denies splinting/and/or immobilization, but does wear a compression sleeve on her wrist for support. She presents today w/ mild swelling, and has pain w/ UD and wrist extension (which can be common in TFCC injuries). She is also hypersensitive to touch on the ulnar side of her wrist and hand but could not quantify the exact spot due to pt. reporting the whole ulnar side of her hand is sensitive. She would benefit from skilled OT therapy to focus on increased pain free ROM, wrist stability, and functional use of her L hand/wrist. STG Duration: 3 weeks Short Term Goals: Pt will report 2/10 pain w/ activity Pt will be complaint w/ her HEP Pt will increase UD of wrist to 20 PAIN FREE LTG Duration: 6 weeks Halfway Goals: Pt will report pain free ROM of her L wrist Pt will be able to use her L hand to carry a grocery bag Pt will report RPLOF Frequency and Duration: The patient will be seen 2xs a week for 6 weeks Treatment Plan: Therapeutic Exercise Therapeutic Activity Home Exercise Program Splinting Neuro Re-ed Patient Education Desensitization/Sensory Re-ed Edema Control ADL Training Ultrasound NMES Iontophoresis Paraffin Fluidotherapy MHP Cold Packs Joint Mobilization Soft Tissue Mobilization Kinesiotaping Other (see comments) Electronically Signed By: Lou Okeefe OTR/L Reviewed/agree with student documentation: Therapist: Please sign and return to therapist, Thank you for your referral.
--- NOTE | 2024-12-22 12:22 | MHC.OT.OP ---
[address] [phone] F: [phone] Occupational Therapy Progress Note Patient Name: Stefanie Montanez Diagnosis: Date of Surgery: Date of Evaluation: 11/23/24 Treatments to Date: 8 Cancellations to Date: No Shows to Date: Subjective: Its better , but sire on the (ulnar) side of my wrist Pain Score: Pain Location: Objective Measures: Status: Assessment: Pt tolerated therapy well today. She requires cueing during therex to take breaks in between sets. Pt is doing well and making progress towards her LTG's. She still reports pain/discomfort w/ supination and wrist extension. We continue to be aware of this during therapy. She is wearing a wrist widget for ulnar sided wrist support (needs to be corrected on proper wear) but it is helping. She reports overall decrease of pain and increase in the functional use of her L hand. She measured PAIN FREE UD: 20 RD:20 WRIST EXTENSION 55 FLEXION: 75 R:45 LBS L:33 LBS. We continue to focus on strengthening and pain free ROM of her wrist Short Term Goals: Pt will report 2/10 pain w/ activity MET Pt will be complaint w/ her HEP Pt will increase UD of wrist to 20 PAIN FREE MET Custodial Goals: Pt will report pain free ROM of her L wrist Pt will be able to use her L hand to carry a grocery bag Pt will report RPLOF Frequency and Duration: The patient will be seen 2xs a week for 6 weeks Treatment Plan: Therapeutic Exercise Therapeutic Activity Home Exercise Program Splinting Neuro Re-ed Patient Education Desensitization/Sensory Re-ed Edema Control ADL Training Ultrasound NMES Iontophoresis Paraffin Fluidotherapy MHP Cold Packs Joint Mobilization Soft Tissue Mobilization Kinesiotaping Other (see comments) Electronically Signed By: Lou Okeefe OTR/L Reviewed/agree with student documentation: N/A Therapist:
== END 2025-01-06 10:28 | disposition home or self-care (01) ==
LOC: HO.OT 08:43
PROVIDERS: PCP Student in an Organized Health Care Education/Training Program; Visit Provider Physician Assistant
DX: S63.502D Unspecified sprain of left wrist, subsequent encounter (principal)
CPT/HCPCS: 97035; 97110; 97140; 97166; 97530; 97535

== ENCOUNTER 2025-01-12 09:18 | Outpatient (AMB) | payer OTHER, SELFPAY ==
--- NOTE | 2025-01-12 09:32 | MHC.OFFVIS ---
Vital Signs 01/12/25 09:34 Height 5 ft Weight 163 lb 2.273 oz BMI 31.9 BP 160/66 H Blood Pressure Location Lt radial Position Sitting Pulse 80 Intake Visit Reasons: chronic constipation/Cherelle pt Intake Note: Stefanie presents in the office as a cherelle patient follow up for chronic constipation. CC: She states that depending on what she eats she will have bloating in her abdomen and nausea but this does not happen often. Allergies Sulfa (Sulfonamide Antibiotics) [SULFA (SULFONAMIDE ANTIBIOTICS)] Allergy (Unknown, Verified 01/12/25 09:36) RASH Medication List - Last Reconciled 01/12/25 by Karla Mansfield MD amitriptyline 10 mg PO BEDTIME betamethasone dipropionate 0.05% 1 appl topical BID calcium carbonate-vitamin D3 500 mg-10 mcg (400 unit) (Calcium 500 With D) 1 tab PO DAILY carvedilol 3.125 mg PO BID gemfibrozil mg PO DAILY omeprazole 20 mg PO DAILY rosuvastatin 5 mg PO DAILY sacubitril-valsartan 49-51 mg (Entresto) 1 tab PO BID 90 days HPI Comments Details: 74 y.o F with PMH of polyps 09/2023, LBBB with assoc cardiomyopathy EF 35-40%, who is here for follow up. Accompanied by daughter Jeanette. Prev [facility] [place]. [place] 09/2023 - x7 polyps 04/02: tubular adenoma including piecemeal removal of 18 mm pedunculated polyp in ascending colon. Recommendation for repeat colo in 3-6 months however pt with newly discovered cardiomyopathy. Likely nonischemic based on perfusion scan. Pt follows with [facility] Cardiology. On GDMT including entresto. (of note pt not sure if taking carvedilol). Plan for repeat echo next month. Pt herself reports main complaint is bloating, post prandial within an hour. Also with nausea. with increased flatulence and burping. Not constipated. Pt s/p CCY. Reports ran out of omeprazole 3-4 months ago and started noticing these sx 2 months ago. PFSH Medical History (Updated 01/12/25 @ 09:52 by Karla Mansfield MD) Primary hypertension Surgical History Hx of colonoscopy Hx of tubal ligation Hx of malignant neoplasm of head and neck Hx of hysterectomy Hx of ankle fusion Family History Father No problems noted. Mother Kidney problem Social History Household Members: None Alcohol intake: current Alcohol intake frequency: holidays/special occasions only Patient Tobacco Use Status: Current everyday Tobacco user Tobacco use type: Cigarette Cigarettes Per Day: 2 Review of Systems Const All systems reviewed & are unremarkable except as noted in HPI and below Physical Exam Vital Signs: BMI result Body Mass Index 31.9 No apparent distress Nonicteric Abdomen soft, nondistended Alert and oriented x3, normal gait Assessment & Plan Assessment & Plan (1) Cardiomyopathy: Code(s): I42.9 - Cardiomyopathy, unspecified Category: Medical (2) LBBB (left bundle branch block): Code(s): I44.7 - Left bundle-branch block, unspecified Category: Medical (3) Tubular adenoma: Comment: Again Reviewed procedure report, pathology recommendation Seen Cardiology in November-reviewed note Code(s): D36.9 - Benign neoplasm, unspecified site Category: Medical (4) Bloating: Code(s): R14.0 - Abdominal distension (gaseous) Category: Medical (5) H. pylori infection: Code(s): A04.8 - Other specified bacterial intestinal infections Category: Medical Plan 1. Hx of polyps Overdue for colo as undergoing work up for cardiomyopathy. Reviewed that will await updated echo findings and if EF improved will proceed with colo here. 2. H Pylori infection Unclear if treated based on chart review. No RADHA in system. Will obtain H Pylori breath test at next visit 3. Bloating Likely 2/2 dyspepsia 2/2 H Pylori vs gastritis vs gerd. Omeprazole 20 refilled Pt aware to HOLD x 2 weeks before next appt Follow up 2 months Medications: Refilled omeprazole 20 mg PO DAILY 90 caps 1RF Coding Level of Care Code Est Pt Level 4 (47315) Diagnoses Cardiomyopathy I42.9 LBBB (left bundle branch block) I44.7 Tubular adenoma D36.9 Bloating R14.0 H. pylori infection A04.8
[2025-01-12 09:34] VITALS: BP 160/66; PULSE 80; BMI 31.9
--- OUTSIDE RECORDS SUMMARY | 2025-01-12 10:18 | XMS_ITS | Encounter Summary ---
Author Organization [employer] Address [address] [place] [address] Care Team Providers Care Hand Knitter Name Role Phone Aarti Koch MD Primary Care Provider [phone] Reason for Referral * Orthopedic (Routine) - Pending Review Specialty Diagnoses / Procedures Referred By Georgina costa Referred To Contact Orthopedic Surgery / Orthopaedic Surgery Diagnoses Lateral epicondylitis of left elbow Procedures Hand / UE Inj/Asp: L elbow Akua Wolfe PA [address] [address] Phone: tel: fax: Referral ID Status Reason Start Date Expiration Date V isits Requested Visits Authorized [id number] Pending Review 01/04/2025 01/04/2026 1 1 Reason for Visit * Reason Comments Pain Encounter Details Date Type Department Care Team (Latest Contact Info) Description 01/04/2025 10:30 AM EDT Office Visit Orthopedic Surgery - [place] [address] [phone] Akua Wolfe PA [address] [place] [address] [place] [phone] Sprain of left wrist, subsequent encounter (Primary Dx); Lateral epicondylitis of left elbow Social History Tobacco Use Types Packs/Day Years Used Date Smoking Tobacco: Never Assessed Comments Unknown Sex and Gender Information Value Date Recorded Sex Assigned at Not on file Legal Sex Female 11:06 AM EDT Gender Identity Not on file Sexual Orientation Not on file documented as of this encounter Progress Notes * LALITO Galvin - 01/04/2025 10:30 AM EDTAssociated Order(s): Hand / UE Inj/Asp: L elbow Post-Procedure Diagnose(s): Lateral epicondylitis of left elbow CHIEF COMPLAINT: Pain of the Left Wrist had concerns including Pain of the Left Wrist. IDENTIFIER: Stefanie Montanez is a 74 y.o. old female SUBJECTIVE: Stefanie Montanez is here for follow-up on 01/04/2025 for left wrist pain. This started after a fall on October 27. Pain was over the ulnar side of the wrist. She did not seek treatment right away. X-rays were negative. Treatment has included Tylenol, Biofreeze and bracing. Also recommended occupational therapy. She has gone to 6 weeks of occupational therapy and does report some improved mobility in the wrist. There is some mild pain still ulnar-sided. The biggest issue today is she has been having increasing pain over the left forearm and left elbow. She localizes the pain to extensor carpi radialis brevis and lateral epicondyle. No reinjury. PAST MEDICAL/SURGICAL HISTORY: There are no active problems to display for this patient. Past Surgical History: Procedure Laterality Date ??? ANKLE SURGERY PROCEDURE: HISTORICAL ANKLE SURGERY ??? COLONOSCOPY PROCEDURE: HISTORICAL COLONOSCOPY MEDICATIONS DISCONTINUED/REORDERED: There are no discontinued medications. ACTIVE MEDICATIONS: Current Outpatient Medications on File Prior to Visit Medication Sig Dispense Refill ??? amitriptyline (ELAVIL) 10 mg tablet Take 1 Tablet by mouth at bedtime. ??? bisacodyL (DULCOLAX) 5 mg EC tablet Take 1 tablet (5 mg total) by mouth 1 (one) time each day if needed for constipation. Do not crush, chew, or split. ??? calcium carbonate-cholecalciferol 500 mg-10 mcg (400 unit) per chewable tablet Take by mouth. ??? diclofenac (CATAFLAM) 50 mg tablet Take by mouth 3 (three) times a day. ??? diclofenac (Voltaren Arthritis Pain) 1 % topical gel Apply 4 g topically 2 (two) times a day. 240 g 1 ??? diclofenac (VOLTAREN) 1 % topical gel Apply 4 g topically 2 times daily. ??? docusate sodium (COLACE) 100 mg capsule Take 1 Capsule by mouth 2 times daily. ??? gemfibroziL (LOPID) 600 mg tablet Take 1 Tablet by mouth 2 times daily (before meals). ??? ibuprofen (ADVIL,MOTRIN) 800 mg tablet Take 1 Tablet by mouth every 8 hours as needed. ??? naproxen (NAPROSYN) 500 mg tablet Take 1 Tablet by mouth 2 times daily as needed for Pain (Takewith food.) for up to 14 days. - Oral ??? rosuvastatin (Ezallor Sprinkle) 5 mg capsule, sprinkle Take by mouth. ??? tetracycline (ACHROMYCIN,SUMYCIN) 250 mg capsule Take 1 capsule (250 mg total) by mouth 4 (four) times a day. (Patient not taking: Reported on 11/11/2024) No current facility-administered medications on file prior to visit. ALLERGIES: Allergies Allergen Reactions ??? Sulfa (Sulfonamide Antibiotics) PHYSICAL EXAM: Visit Vitals Smoking Status Never Assessed APPEARANCE: Alert and in no acute distress EXTREMITIES: Extremities warm and well perfused without clubbing, cyanosis, or edema Left wrist no swelling. No deformity. Wrist extension 50 degrees flexion 60. Mild pain with ulnar deviation of the wrist. No snapping of ECU tendon and no instability of DRUJ. She is tender to palpation directly over ulnar styloid. No significant pain with resisted wrist extension. She does have pain to palpation over extensor carpi radialis brevis. Moderate pain to palpation over left lateral epicondyle. Full flexion extension of the elbow with mild pain VASCULAR:well perfused with normal pulses in the distal extremities and no peripheral edema noted NEURO: Awake, alert and oriented SKIN: Skin color, texture, turgor normal. No rashes or lesions. PSYCH: does not appear depressed or anxious and oriented to time, place and person LABS/IMAGING: No results found for: HGBA1C Xrays reviewed: XR Wrist 3+ Views Left Date of Visit: 11/05/2024 Reason for visit: Left wrist pain after injury Views: AP, lateral, oblique left wrist Comparison: None Findings: No fracture, dislocation or lytic lesion seen. Mild arthritic changes. No widening of DRUJ. Ulnar negative variance Impression: Normal left wrist radiograph no acute findings IMPRESSION: 1. Sprain of left wrist, subsequent encounter 2. Lateral epicondylitis of left elbow PLAN: The details of the visit were reviewed with the patient. Pertinent history, and objective findings were reviewed, along with the diagnoses: Left wrist sprain. There is some improvement but not full resolution. She significant Occupational therapy. Did discuss possibility of getting an MRI scan versus cortisone injection but going to hold off on both currently. The biggest issue today is more of the forearm and elbow and the pain will radiate down the wrist. She is very tender over the left lateral epicondyle. Discussed with patient treatment options there including topical creams, Tylenol further therapy and cortisone injection. Decided to try cortisone injection to left lateral epicondyle for both therapeutic and diagnostic purposes I will see her back in 4 weeks time for clinical recheck. Hand / UE Inj/Asp: L elbow for lateral epicondylitis Indications: pain Details: 25 G needle, lateral approach Medications: 40 mg triamcinolone acetonide 40 mg/mL; 2 mL lidocaine 1 % 2 mL 1% lidocaine plain mixed with 40 mg triamcinolone injected to level of left lateral epicondyle, aseptic technique Informed Consent: Laterality: Left Relevant images/test results available and reviewed: yes Health status cleared: Yes Procedure/treatment, purpose, treatment alternatives, risks/potential complications and benefits explained: yes Risk/complications/benefits details: Risks of infection and temporary skin discoloration discussed.Discussed sometimes increased pain after injection and swelling and mild redness at injection site for couple days. Explained occasionally cortisone injection can cause facial flushing temporarily. Benefits pain management. Patient questions answered: yes Patient agrees, verbalizes understanding, and wants to proceed: yes Consent given by: Patient Informed consent discussion completed by Physician/CEM with patient: Verbal Pre-procedure timeout performed: yes Stefanie Montanez acknowledges understanding of the above plan and agrees to follow recommendations and/or take medications as prescribed. No orders of the defined types were placed in this encounter. @ELECSIG@ documented in this encounter Plan of Treatment Upcoming Encounters Date Type Department Care Team (Late st Contact Info) Description 01/18/2025 9:45 AM EDT Office Visit Orthopedic Surgery - [place] [address] [facility] [address] [place] [phone] David Hermosillo DPSaroj [address] [facility] [address] [place] [address] 02/01/2025 10:00 AM EDT Office Visit Orthopedic Surgery [facility] [address] [facility] [address] [place] [phone] Akua Wolfe PA [address] [facility] [place] [address] [place] [phone] documented as of this encounter Procedures Procedure Name Priority Date/Time Associated Diagnosis Comments RI INJECTION(S) TENDON ORIGIN/INSERT SINGLE Routine 01/04/2025 10:30 AM EDT Lateral epicondylitis of left elbow documented in this encounter Results * RI INJECTION(S) TENDON ORIGIN/INSERT SINGLE (01/04/2025 10:30 AM EDT) Narrative Akua Wolfe PA - 01/04/2025 10:30 AM EDT LALITO Galvin ? 01/04/2025 12:07 PM Hand / UE Inj/Asp: L elbow for lateral epicondylitis Indications: pain Details: 25 G needle, lateral approach Medications: 40 mg triamcinolone acetonide 40 mg/mL; 2 mL lidocaine 1 % 2 mL 1% lidocaine plain mixed with 40 mg triamcinolone injected to level of left lateral epicondyle, aseptic technique Informed Consent: ??Laterality: ??Left ??Relevant images/test results available and reviewed: yes ?Health status cleared: ??Yes ??Procedure/treatment, purpose, treatment alternatives, risks/potential complications and benefits explained: yes ?Risk/complications/benefits details: ??Risks of infection and temporary skin discoloration discussed. ??Discussed sometimes increased pain after injection and swelling and mild redness at injection site for couple days. Explained occasionally cortisone injection can cause facial flushing temporarily. ??Benefits pain management. ??Patient questions answered: yes ?Patient agrees, verbalizes understanding, and wants to proceed: yes ?Consent given by: ??Patient ??Informed consent discussion completed by Physician/CEM with patient: ?? Verbal ??Pre-procedure timeout performed: yes ?? us Akua STARKEY IN CLINIC/BEDSIDE ORDERABLES Final Result documented in this encounter Visit Diagnoses Diagnosis Sprain of left wrist, subsequent encounter- Primary Lateral epicondylitis of left elbow documented in this encounter Administered Medications Inactive Administered Medications - up to 3 most recent administrations Medication Order MAR Action Action Date Dose Rate Site lidocaine (XYLOCAINE) 1 % injection 2 mL 2 mL, injection, Once PRN Procedure, Starting on Fri01/04/25 at 1030, For 1 doseIndications:Lateral epicondylitis of left elbow Given 01/04/2025 10:30 AM EDT 2 mL triamcinolone acetonide (KENALOG-40) 40 mg/mL injection 40 mg 40 mg, intra-articular, Once PRN Procedure, Starting on Fri01/04/25 at 1030, For 1 doseIndications:Lateral epicondylitis of left elbow Given 01/04/2025 10:30 AM EDT 40 mg documented in this encounter Care Teams Hand Knitter Relationship Specialty Start Date End Date Aarti Koch MD [address] [place] [id number] PCP - General 11/14/23 documented as of this encounter
--- OUTSIDE RECORDS SUMMARY | 2025-01-12 10:18 | XMS_ITS | Clinical Summary ---
Author Organization [address] [facility] Address 175 [place] [address] Phone Care Team Providers Care Guard Rail Installer Name Role Phone Aarti Koch MD Primary Care Provider [phone] Allergies Active Allergy Reactions Criticality Noted Date Comments Sulfa (Sulfonamide Antibiotics) 11/28 Medications amitriptyline (ELAVIL) 10 mg tablet Take 1 Tablet by mouth at bedtime. Active calcium carbonate-sally calciferol 500 mg-10 mcg (400 unit) per chewable tablet Take by mouth. Active diclofenac (VOLTAREN) 1 % topical gel Apply 4 g topically 2 times daily. Active docusate sodium (COLACE) 100 mg capsule Take 1 Capsule by mouth 2 times daily. Active gemfibroziL (LOPID) 600 mg tablet Take 1 Tablet by mouth 2 times daily (before meals). Active ibuprofen (ADVIL,MOTRIN) 800 mg tablet Take 1 Tablet by mouth every 8 hours as needed. Active rosuvastatin (Ezallor Sprinkle) 5 mg capsule, sprinkle Take by mouth. Activ e naproxen (NAPROSYN) 500 mg tablet Take 1 Tablet by mouth 2 times daily as needed for Pain (Take with food.) for up to 14 days. - Oral Active bisacodyL (DULCOLAX) 5 mg EC tablet Take 1 tablet (5 mg total) by mouth 1 (one) time each day if needed for constipation. Do not crush, chew, or split. Active diclofenac (CATAFLAM) 50 mg tablet Take by mouth 3 (three) times a day. Active tetracycline (ACHROMYCIN,SUM YCIN) 250 mg capsule Take 1 capsule (250 mg total) by mouth 4 (four) times a day. Active diclofenac (Voltaren Arthritis Pain) 1 % topical gel Apply 4 g topically 2 (two) times a day. 240 g 1 01/11/20 25 Hospital, Clinic, or Other Facility Administered Medication Ordered Dose Route Frequency Start Date End Date Status lidocaine (XYLOCAINE) 1 % injection 2 mLIndications:Lateral epicondylitis of left elbow 2 mL inj Once PRN Procedure 01/04/2025 01/04/2025 Ended triamcinolone acetonide (KENALOG-40) 40 mg/mL injection 40 mgIndications:Lateral epicondylitis of left elbow 40 mg IAtc Once PRN Procedure 01/04/2025 01/04/2025 Ended Encounters Date Type Department Care Team Description 01/04/2025 10:30 AM EDT Office Visit Orthopedic Surgery [address] [phone] Akua Wolfe PA Sprain of left wrist, subsequent encounter (Primary Dx); Lateral epicondylitis of left elbow 11/19/2024 10:00 AM EST Office Visit Orthopedic [address] [phone] Akua Wolfe PA Sprain of left wrist, initial encounter (Primary Dx) 11/11/2024 9:30 AM EST Office Visit Orthopedic Surgery [facility] [address] [phone] David Hermosillo, DPM Primary osteoarthritis of both feet (Primary Dx); Dermatophytosis of nail; Ingrowing nail; Pain in toe of right foot; Pain in toe of left foot; Difficulty walking; Diabetic mononeuropathy simplex (CMS/HCC) 11/05/2024 9:15 AM EST Office Visit Orthopedic [facility] [address] [phone] Akua Wolfe PA Sprain of left wrist, initial encounter (Primary Dx) from Last 3 Months Surgical History Surgery Date Site/Laterality Comments COLONOSCOPY PROCEDURE: HISTORICAL COLONOSCOPY ANKLE SURGERY PROCEDURE: HISTORICAL ANKLE SURGERY Medical History Medical History Date Comments Diabetes mellitus type 2, co ntrolled, with complications (CMS/HCC) DX:Diabetes mellitus type 2, controlled, with complications (HCC) Essential hypertension DX:Essent ial hypertension Hyperlipidemia DX:Hyperlipidemi a Anxiety state DX:Anxiety state Social History Tobacco Use Types Packs/Day Years Used Date Smoking Tobacco: Never Assessed Comments Unknown Sex and Gender Information Value Date Recorded Sex Assigned at Not on file Legal Sex Female 11:06 AM EDT Gender Identity Not on file Sexual Orientation Not on file Obstetrics History Last Filed Vital Signs Vital Sign Reading Time Taken Comments Blood Pressure - - Pulse - - Temperature - - Respiratory Rate - - Oxygen Saturation - - Inhaled Oxygen Concentration - - Weight 68 kg (150 lb) 11/11/2024 9:16 AM EST Height 152.4 cm (5') 11/11/2024 9:16 AM EST Body Mass Index 29.29 11/11/2024 9:16 AM EST Plan of Treatment Upcoming Encounters Date Type Department Care Team (Late st Contact Info) Description 01/18/2025 9:45 AM EDT Office Visit Orthopedic Surgery [facility] [address] [phone] David Hermosillo, DPM 175 [facility] 250 [place] [address] 02/01/2025 10:00 AM EDT Office Visit Orthopedic Surgery [facility] 175 [facility] 140 [place] [phone] Akua Wolfe PA 174 [facility] 140 [place] [phone] Health Maintenance Due Date Last Done Comments Diabetes: Annual Foot Exam 1962 Diabetes: Annual Retina Eye Exam 1962 Pneumococcal Vaccine: 50+ Years (1 of 2 - PCV) 1971 Zoster Vaccines (1 of 2) 2002 RSV Immunization Patients 60 + Years Old (1 - Risk 60-74 years 1-dose series) 2012 Breast Cancer Screening 03/01/2021 03/01/2019 Colorectal Cancer Screening: Colonoscopy 05/21/2024 Depression Screening 05/21/2024 04/03/2023 Falls Risk Assessment 05/21/2024 Hepatitis C Screening 05/21/2024 Medicare Annual Wellness Visit 05/21/2024 Osteoporosis Screening (Bone Density Screening) 05/21/2024 Social Influencers of Health Screening 05/21/2024 COVID-19 Vaccine (1 - 2023-2 5 season) 2024 Influenza Vaccine (#1) 2024 Diabetes: Annual Urine Albumin-Creatinine Ratio (uACR) 08/09/2024 Diabetes: Blood Sugar Contro l Test (HGBA1C) 03/30/2025 09/29/2024, 06/02/2024 Diabetes: Annual GFR (Glomerular Filtration Rate) 09/15/2025 09/15/2024, 06/02/2024 Hypertension/CHF/CAD Annual BMP Blood Test 09/15/2025 09/15/2024, 06/02/2024 DTaP,Tdap,and Td Vaccines (2 - Td or Tdap) 11/06/2028 11/06/2018 Cholesterol Screening (Lipid Panel) 06/02/2029 06/02/2024 HIB Vaccines Aged Out No longer eligi ble based on patient's age to complete this topic HPV Vaccines Aged Out No longer eligi ble based on patient's age to complete this topic Hepatitis A Vaccines Aged Out No long er eligible based on patient's age to complete this topic Hepatitis B Vaccines Aged Out No long er eligible based on patient's age to complete this topic IPV Vaccines Aged Out No longer eligi ble based on patient's age to complete this topic MMR Vaccines Aged Out No longer eligi ble based on patient's age to complete this topic Meningococcal ACWY Vaccine Aged Out N o longer eligible based on patient's age to complete this topic Meningococcal B Vacine Aged Out No lo nger eligible based on patient's age to complete this topic RSV Immunization Patients Under 20 months Aged Out No longer eligible b ased on patient's age to complete this topic Varicella Vaccines Aged Out No longer eligible based on patient's age to complete this topic Procedures Procedure Name Priority Date/Time Associated Diagnosis Comments ID INJECTION(S) TENDON ORIGIN/INSERT SINGLE Routine 01/04/2025 10:30 AM EDT Lateral epicondylitis of left elbow XR WRIST 3+ VIEWS LEFT Routine 11/05/2024 9:28 AM EST Pain from Last 3 Months Results * ID INJECTION(S) TENDON ORIGIN/INSERT SINGLE (01/04/2025 10:30 AM [...] Akua STARKEY IN CLINIC/BEDSIDE ORDERABLES Final Result * XR Wrist 3+ Views Left (11/05/2024 9:28 AM EST) Anatomical Region Laterality Modality Upper Extremities, Wrist Left Compute d Radiography Narrative 11/05/2024 10:36 AM EST Date of Visit: 11/05/2024 Reason for visit: Left wrist pain after injury Views: AP, lateral, oblique left wrist Comparison: None Findings: No fracture, dislocation or lytic lesion seen. ??Mild arthritic changes. ??No widening of DRUJ. ??Ulnar negative variance Impression: Normal left wrist radiograph no acute findings us Akua STARKEY IMG XR PROCEDURES Final Resul t from Last 3 Months Insurance [facility] MEDICARE Member Subscriber Plan / Payer (Ef fective 2017-Present) Name:Stefanie Montanez Relation to Subscriber:Self Name:Stefanie Montanez Payer ID:[id number] Group ID:[id number] Type:Not on file Address: [place] [address] [address] [address] Care Teams Guard Rail Installer Relationship Specialty Start Date End Date Aarti Koch MD [address] [place] [address] PCP - General 11/14/23
--- OUTSIDE RECORDS SUMMARY | 2025-01-12 10:18 | XMS_ITS | Encounter Summary ---
Author Organization [place] [address] Care Team Providers Care Medical Advisor Name Role Phone Aarti Koch MD Primary Care Provider [phone] Encounter Details Date Type Department Care Team (Late st Contact Info) Description 08/17/2024 4:48 PM EDT Hospital Encounter TH HISTORIC ENCOUNTERS EASTERN CONVERSION ONLY Akua Wolfe PA 174 [facility] 140 [place] [phone] Social History Tobacco Use Types Packs/Day Years [...] 9:45 AM EDT Office Visit Orthopedic Surgery [facility] [address] [phone] David Hermosillo DPM [address] [phone] 02/01/2025 10:00 AM EDT Office Visit Orthopedic Surgery [facility] [address] [facility] 140 [place] [phone] Akua Wolfe PA [address] [facility] [address] [place] [address] documented as of this encounter Visit Diagnoses Not on filedocumented in this encounter Care Teams Medical Advisor Relationship Specialty Start Date End Date Aarti Koch MD 230 [place] [address] PCP - General 11/14/23 documented as of this encounter
== END 2025-01-12 10:01 | disposition home or self-care (01) ==
LOC: HO.HGI 09:18
PROVIDERS: PCP Student in an Organized Health Care Education/Training Program; Visit Provider Internal Medicine
DX: I42.9 Cardiomyopathy, unspecified (principal); I44.7 Left bundle-branch block, unspecified; D36.9 Benign neoplasm, unspecified site; R14.0 Abdominal distension (gaseous); A04.8 Other specified bacterial intestinal infections
CPT/HCPCS: 99214

== ENCOUNTER → 2025-01-12 09:18 | Outpatient (BNVA) | payer OTHER, SELFPAY | PROVIDERS: PCP Student in an Organized Health Care Education/Training Program; Visit Provider Internal Medicine | DX: I42.9 Cardiomyopathy, unspecified (principal); I44.7 Left bundle-branch block, unspecified; D36.9 Benign neoplasm, unspecified site; R14.0 Abdominal distension (gaseous); A04.8 Other specified bacterial intestinal infections | CPT/HCPCS: 99212 ==

== ENCOUNTER → 2025-02-09 08:54 | Outpatient (REF) | payer OTHER, SELFPAY ==
--- NOTE | 2025-02-09 08:56 | CA_ITS ---
Transthoracic Echocardiogram Patient (Last, First, Middle): Stefanie Montanez, Gender: Female Date of : 1950 Age: 74 Procedure Date: 02/09/2025 Procedure Type: Transthoracic Echocardiogram Location: OP Height: 152.4 cm Weight: 73.94 kg BSA: 1.71 m2 Heart Rate: bpm BP: 160 / 66 mmHg Furniture Polisher: DEWEY Referring MD: Cuco Castillo MD Curator Medical Museum: Sin Rodriguez MD Symptoms: I42.9 - Cardiomyopathy, unspecified Study Quality: Adequate ECG Rhythm: Sinus Conclusions: - 1. Low normal LV ejection fraction 50-55% with impaired relaxation filling pattern 2. Cardiac valvular Dopplers within normal limits 3. No gross pericardial effusion Findings Left Ventricle Normal left ventricular cavity size. There is normal left ventricular wall thickness. The left ventricular systolic function is low normal. The visually estimated ejection fraction is between 50-55%. There is paradoxical septal motion consistent with a left bundle branch block. Spectral Doppler is indicative of an impaired relaxation filling pattern. E/E prime ratio is between 8 and 15 consistent with indeterminate filling pressures. Peak GLS is -13.6%, moderately reduced. Right Ventricle Normal right ventricular cavity size and systolic function. Atria The left atrium is likely dilated. There is no evidence of interatrial shunt. The right atrium is normal in size. Aortic Valve The aortic valve structure and function is likely normal. There is no aortic valve stenosis. There is no aortic valve regurgitation. Mitral Valve Likely normal mitral valve structure and function. There is trace mitral valve regurgitation. There is no mitral valve stenosis. Pulmonic Valve The pulmonic valve was not well visualized. Tricuspid Valve The tricuspid valve was not well visualized. Tricuspid regurgitation envelope is inadequate for calculation of right ventricular systolic pressure. Normal right atrial pressure. Great Vessels All visible segments of the aorta are normal in size. The pulmonary artery was not well visualized. There is no dilatation of the ascending aorta measuring 3.20 cm. Venous The inferior vena cava is normal in size and collapses greater than 50% with inspiration. Pericardium/Pleural There is no evidence of pericardial effusion. Prior Study Comparison No significant change compared to prior study dated: 02/06/2024. measured LV ejection fraction is improved Measurements 2D Linear Measurements IVSd: 0.67 0.6-0.9/0.6-1.0 cm LVIDd: 5.29 3.9-5.3/4.2-5.9 cm LVIDd Index: 3.09 2.4-3.2/2.2-3.1 cm/m2 LVIDs: 3.93 2.0-3.6 cm LVPWd: 0.90 0.7-1.1 cm LA Diam: 3.50 2.7-3.8/3.0-4.0 cm LAIDs Index: 2.05 1.5-2.3 cm/m2 LV Mass: 181.93 67-162/88-224 g LV Mass Index: 106.39 43-95/49-115 g/m2 LVOT Diam: 2.00 3.0+(-)1.3 cm 2D Systolic Function EF 4C: 54.60 >55% EF 2C: 46.90 >55% EF BiP: 51.10 >55% Mitral Valve MV Pk E: 0.69 MV PK A: 1.11 MV Decel Time: 124.00 E/A: 0.60 E'Lateral: 6.64 E'Medial: 3.81 E/E' Med: 18.20 E/E' Lat: 10.50 PHT: 36.00 MVA PHT: 6.11 Decel [place]: 5.61 Aortic Valve AoV Pk Misha: 1.61 AoV Mn Misha: 1.09 AoV VTI: 0.33 AoV Pk Grad: 10.00 Aov Mn Grad: 6.00 DAVID Cont.VTI: 1.94 LVOT LVOT Pk Misha: 1.08 LVOT Mn Misha: 0.73 LVOT VTI: 0.20 LVOT Pk Grad: 5.00 LVOT Mn Grad: 2.00 LVOT Diam: 2.00 LVOT Area: 3.14 Diastolic Function MV Pk E: 0.69 MV Pk A: 1.11 E/A: 0.60 E'Medial: 3.81 E/E' Med: 18.20 E' Laterial: 6.64 E/E' Lat: 10.50 Right Ventricle TAPSE (mm): 20.70 TVS' Misha: 11.20 Tricuspid Valve RA Press: 3.00 Great Vessels Aorta Sinus of Valsalva: 2.68 2.0-3.[address] [place]: 2.27 1.7-3.4 cm Ao Asc: 3.20 2.1-3.4 cm Updated in Other Vendor System with Status of Final Sin Rodriguez MD electronically signed on 02/10/2025 11:08:48 AM with status of Final
--- OUTSIDE RECORDS SUMMARY | 2025-02-09 09:24 | XMS_ITS | Clinical Summary ---
Author Organization 175 [facility] Address 175 [place] [address] Phone Care Team Providers Care School Guidance Counselor Name Role Phone Aarti Koch MD Primary Care Provider [phone] Allergies Active Allergy Reactions Criticality Noted Date Comments Sulfa (Sulfonamide Antibiotics) 11/28 Medications amitriptyline (ELAVIL) 10 mg tablet Take 1 Tablet by mouth at bedtime. Active diclofenac (VOLTAREN) 1 % topical gel Apply 4 g topically 2 times daily. 12/23/19 24 Active docusate sodium (COLACE) 100 mg capsule Take 1 Capsule by mouth 2 times daily. Active gemfibroziL (LOPID) 600 mg tablet Take 1 Tablet by mouth 2 times daily (before meals). Active naproxen (NAPROSYN) 500 mg tablet Take 1 [...] 3 (three) times a day. Active tetracycline (ACHROMYCIN,SUMY JAMES) 250 mg capsule Take 1 capsule (250 mg total) by mouth 4 (four) times a day. Active betamethasone dipropionate (DIPROSONE) 0.05 % ointment APPLY TO THE FEET TWICE DAILY FOR TWO WEEKS, BREAK ONE WEEK, REPEAT NEEDED 12/29/19 25 Active omeprazole (PriLOSEC) [address] capsule Take 1 capsule (20 mg total) by mouth 1 (one) time each day. 01/13/20 25 Active cloNIDine (CATAPRES) 0.1 mg tablet Take 1 tablet (0.1 mg total) by mouth. 12/29/19 25 Active carvediloL (COREG) 3.125 mg tablet Take 1 tablet (3.125 mg total) by mouth 2 (two) times a day. Active Entresto 49-51 mg per tablet 01/19/20 25 Active Calcium 500 With D 500 mg-10 mcg (400 unit) per tablet Take 1 tablet by mouth 1 (one) time each day. Active ibuprofen (ADVIL,MOTRIN) 800 mg tablet Take 1 tablet (800 mg total) by mouth 2 (two) times a day with meals. 01/07/20 25 Active rosuvastatin (CRESTOR) 5 mg tablet Take 1 tablet (5 mg total) by mouth daily. 12/17/19 25 Active lancets (OneTouch Delica Plus Lancet) 33 gauge CHECK SUGARS TWICE A DAY 02/01/20 24 Active calcium carbonate-cholec alciferol 500 mg-10 mcg (400 unit) per chewable tablet Take by mouth. 025 Discontinued ibuprofen (ADVIL,MOTRIN) 800 mg tablet Take 1 Tablet by mouth every 8 hours as needed. 025 Discontinued rosuvastatin (Ezallor Sprinkle) 5 mg capsule, sprinkle Take by mouth. 025 Discontinued diclofenac (Voltaren Arthritis Pain) 1 % topical gel Apply 4 g topically 2 (two) times a day. 240 g 1 11/11/19 25 025 Encounters Date Type Department Care Team Description 02/01/2025 10:00 AM EDT Office Visit Orthopedic Surgery [facility] 175 [facility] 140 [place] [address] Akua Wolfe PA Sprain of left wrist, subsequent encounter (Primary Dx); Lateral epicondylitis of left elbow 01/18/2025 9:45 AM EDT Office Visit Orthopedic Surgery [facility] 250 175 [facility] 250 [place] [address] David Hermosillo DPM Primary osteoarthritis of both feet (Primary Dx); Ingrowing nail; Dermatophytosis of nail; Diabetic mononeuropathy simplex (CMS/[facility] V24, CMS/[facility] V28); Pain in toe of right foot; Pain in toe of left foot 01/04/2025 10:30 AM EDT Office Visit Orthopedic Surgery [facility] 175 [facility] [address] [place] [address] Akua Wolfe PA Sprain of left wrist, subsequent encounter (Primary Dx); Lateral epicondylitis of left elbow 11/19/2024 10:00 AM EST Office Visit [facility] 175 [facility] 140 [place] [phone] Akua Wolfe PA Sprain of left wrist, initial encounter (Primary Dx) 11/11/2024 9:30 AM EST Office Visit Orthopedic [facility] [address] [phone] David Hermosillo DPM Primary osteoarthritis of both feet (Primary Dx); Dermatophytosis of nail; Ingrowing nail; Pain in toe of right foot; Pain in toe of left foot; Difficulty walking; Diabetic mononeuropathy simplex (CMS/HCC V24, CMS/[facility] V28) from Last 3 Months Surgical History Surgery Date Site/Laterality Comments COLONOSCOPY PROCEDURE: HISTORICAL COLONOSCOPY ANKLE SURGERY PROCEDURE: HISTORICAL ANKLE SURGERY Medical History Medical History Date Comments Diabetes mellitus type 2, co ntrolled, with complications (CMS/HCC V24, CMS/[facility] V28) DX:Diabetes mellitus type 2, controlled, with complications ([facility]) Essential hypertension DX:Essent ial hypertension Hyperlipidemia DX:Hyperlipidemi [...] Care Team (Late st Contact Info) Description 03/24/2025 9:45 AM EDT Office Visit Orthopedic Surgery - [place] [address] [phone] David Hermosillo, DPM [address] [address] Health Maintenance Due Date Last Done Comments Diabetes: Annual Foot Exam 1962 Diabetes: Annual Retina Eye Exam 1962 Pneumococcal Vaccine: 50+ Years (1 of 2 - PCV) 1971 Zoster Vaccines (1 of 2) 2002 RSV Immunization Adult Patients (1 - Risk 60-74 years 1-dose series) 2012 Breast Cancer Screening 03/01/2021 03/01/2019 Colorectal Cancer Screening: Colonoscopy 05/21/2024 Depression Screening 05/21/2024 04/03/2023 Falls Risk Assessment 05/21/2024 Hepatitis C Screening 05/21/2024 Medicare Annual Wellness Visit 05/21/2024 Osteoporosis Screening (Bone Density Screening) 05/21/2024 Social Influencers of Health Screening 05/21/2024 COVID-19 Vaccine (1 - 2023-2 5 season) 2024 Diabetes: Annual Urine Albumin-Creatinine Ratio (uACR) 08/09/2024 Diabetes: Blood Sugar Contro l Test (HGBA1C) 03/30/2025 09/29/2024, 06/02/2024 Influenza Vaccine (Season Ended) 2025 Diabetes: Annual GFR (Glomerular Filtration Rate) 09/15/2025 [...] age to complete this topic Meningococcal B Vaccine Aged Out No l onger eligible based on patient's age to complete [...] AM EDT Lateral epicondylitis of left elbow from Last 3 Months Results * ID [...] Akua STARKEY IN CLINIC/BEDSIDE ORDERABLES Final Result from Last 3 Months Insurance [facility] MEDICARE Member Subscriber Plan / Payer (Ef fective 2017-Present) Name:Stefanie Montanez Relation to Subscriber:Self Name:Stefanie Montanez Payer ID:[id number] Group ID:[id number] Type:Not on file Address: [place] [address] [address] [address] Care Teams School Guidance Counselor Relationship Specialty Start Date End Date Aarti Koch MD [address] [place] [address] PCP - General 11/14/23
--- OUTSIDE RECORDS SUMMARY | 2025-02-09 09:24 | XMS_ITS | Encounter Summary ---
Author Organization [employer] Address [address] [place] [address] 7 [place] [address] Care Team Providers Care Solar Thermal Installer Name Role Phone Aarti Koch MD Primary Care Provider [phone] Encounter Details Date Type Department Care Team (Latest Contact Info) Description 07/13/2019 [facility] CONVERSION[facility] Dental, Provider, DDS Social History Tobacco Use Types Packs/Day Years Used Date Smoking Tobacco: Never Assessed Comments Unknown Sex and Gender Information Value Date Recorded Sex Assigned at Female 08/26/2022 10:16 AM EDT Legal Sex Female 10:16 AM EDT Gender Identity Female 08/26/2022 10:16 AM EDT Sexual Orientation Straight 08/26/2022 10 :16 AM EDT documented as of this encounter Plan of Treatment Not on file documented as of this encounter Visit Diagnoses Not on filedocumented in this encounter Care Teams Solar Thermal Installer Relationship Specialty Start Date End Date Aarti Koch MD [address] [place] [address] PCP - General Family Medicine 10/12/12 documented as of this encounter
--- OUTSIDE RECORDS SUMMARY | 2025-02-09 09:24 | XMS_ITS | Encounter Summary ---
Author Organization [employer] Address [address] [place] [address] [address] [place] [address] Care Team Providers Care Fund Development Manager Name Role Phone Aarti Koch MD Primary Care Provider [phone] Encounter Details Date Type Department Care Team ([facility] Contact Info) Description 10/18/2022 Orders Only [facility] [address] [place] [address] Aarti Koch MD [address] [place] [address] Social History Tobacco Use Types Packs/Day Years [...] on filedocumented in this encounter Care Teams Fund Development Manager Relationship Specialty Start Date End Date Aarti Koch MD 230 [place] [address] PCP - General Family Medicine 10/12/12 documented as of this encounter
--- OUTSIDE RECORDS SUMMARY | 2025-02-09 09:24 | XMS_ITS | Encounter Summary ---
Author Organization [employer] Address [address] [address] [place] [address] Care Team Providers Care Diagnostic Technician Name Role Phone Aarti Koch MD Primary Care Provider [phone] Encounter Details Date Type Department Care Team ([facility] Contact Info) Description 12/11/2023 Telephone [facility] [address] [place], [place] [phone] Aarti Koch MD 505 [place], [place] [phone] Social History Tobacco Use Types Packs/Day Years Used Date Smoking Tobacco: Never Assessed Depression Answer Date Recorded Patient Health Questionnaire-9 Score 4 04/03/2023 Housing Stability Answer Date Recorded What is your housing situation today? I have darion owens 08/18/[address] you li ve. Do you have problems with any of the following? None of the above 08/18/2023 Food Insecurity Answer Date Recorded Within the past 12 months, y ou worried that your food would run out before you got money to buy more: Not on file 08/18/2023 Within the past 12 months,th e food you bought just didn't last and you didn't have enough money to get more: Never True Transportation Answer Date Recorded In the past 12 months, has l ack of transportation kept you from medical appts, meetings, work or from getting things needed for daily living? No 08/18/2023 Utilities Answer Date Recorded In the past 12 months, has t he electric, gas, oil or water company threatened to shut off services in your home? No 08/18/2023 Depression Answer Date Recorded Patient Health Questionnaire-2 Score 2 04/03/2023 Comments Unknown Sex and Gender Information Value Date Recorded Sex Assigned at Female 08/26/2022 10:16 AM EDT Legal Sex Female 10:16 AM EDT Gender Identity Female 08/26/2022 10:16 AM EDT Sexual Orientation Straight 08/26/2022 10 :16 AM EDT documented as of this encounter Miscellaneous Notes * Telephone Encounter - Damaris Pederson - 12/12/2023 3:04 PM EST TC notes faxed to office. * Telephone Encounter - Shazia Davis - 12/11/2023 2:00 PM EST Tc from [facility] with [facility] cardiology requesting last OV notes to be faxed to [phone]. States office received referral but no OV notes. documented in this encounter Plan of Treatment Not on file documented as of this encounter Visit Diagnoses Not on filedocumented in this encounter Additional Health Concerns Assessment Noted Time PHQ-9 Depression Total Score: 4 04/03/20 23 9:50 AM EDT documented as of this encounter Care Teams Diagnostic Technician Relationship Specialty Start Date End Date Aarti Koch MD [address] [place] [address] PCP - General Family Medicine 10/12/12 documented as of this encounter
--- OUTSIDE RECORDS SUMMARY | 2025-02-09 09:24 | XMS_ITS | Encounter Summary ---
Author Organization [employer] Address [address] [facility] [address] [place] [address] Care Team Providers Care Management Sme Name Role Phone Aarti Koch MD Primary Care Provider [phone] Reason for Visit * Reason Onset Date Comments Referral 10/09/2023 Encounter Details Date Type Department Care Team ([facility] Contact Info) Description 10/09/2023 Telephone [facility] [address] [place], [place] [phone] Aarti Koch MD [address] [place] [address] Referral Social History Tobacco Use Types Packs/Day Years [...] t he electric, gas, oil or water Agency [employer] threatened to shut off services in your [...] encounter Miscellaneous Notes * Telephone Encounter - Marli Cardenas RN - 10/09/2023 2:27 PM EST Please review message below and advise. EKG performed during colonoscopy scanned into chart. * Telephone Encounter - Shazia Davis - 10/09/2023 11:51 AM EST Tc from pt daughter requesting a referral for cardiology. States pt had a colonoscopy yesterday (10/08) and was advised by provider to see a homeworker due to 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 Any questions, please contact daughter at [phone] documented in this encounter Plan of Treatment Not on file documented as of this encounter Visit Diagnoses Not on filedocumented in this encounter Additional Health Concerns Assessment Noted Time PHQ-9 Depression Total Score: 4 04/03/20 23 9:50 AM EDT documented as of this encounter Care Teams Management Sme Relationship Specialty Start Date End Date Aarti Koch MD [address] [place] [address] PCP - General Family Medicine 10/12/12 documented as of this encounter
--- OUTSIDE RECORDS SUMMARY | 2025-02-09 09:25 | XMS_ITS | Clinical Summary ---
Author Organization [employer] Address [address] [place] [address] [address] [place] [address] Care Team Providers Care Heavy Machinery Operator Name Role Phone Aarti Koch MD Primary Care Provider [phone] Allergies Active Allergy Reactions Criticality Noted Date Comments Sulfa Antibiotics Rash Low 02/14/2023 Medications acetaminophen (Tylenol) 500 MG tablet take 1-2 tablet by oral route every 6-8 hours as needed 1 Active albuterol (ProAir HFA) 108 (90 Base) MCG/ACT inhaler take 2 puffs by Inhalation route 4 times every day 1 Active Diclofenac Sodium 1 % gel apply (2G) by topical route 4 times every day to the affected area(s) 9 Active diphenhydrAMINE (Benadryl Allergy) 25 MG tablet take 2 tablet by oral route every 4 - 6 hours as needed as needed 0 Active ketotifen (Zaditor) 0.025 % ophthalmic solution instill 1 drop by ophthalmic route 2 times every day into affected eye(s) 1 Active lidocaine (Xylocaine) 2 % solution take 15 milliliter by oral route every 6 hours and swish and spit out 0 Active FreeStyle lancets CHECK BS BY SKIN ROUTE 2 TIMES EVERY DAY 100 each 11 3 Active FREESTYLE LITE test strip CHECK BS BY SKIN ROUTE 2 TIMES EVERY DAY 100 strip 11 3 Active OneTouch Delica Lancets 33G misc Check sugars BID 100 each 11 3 Active Blood Glucose Monitoring Suppl (ONE TOUCH ULTRA 2) w/Device kit Use to check blood sugars BID 1 kit 3 Active Blood Glucose Monitoring Suppl (ONE TOUCH ULTRA 2) w/Device kit 1 Units 2 times daily. 1 kit 3 Active OneTouch Delica Lancets 33G misc CHECK BS BY SKIN ROUTE 2 TIMES EVERY DAY 60 each 5 3 Active Oyster Shell Calcium/D3 500-10 MG-MCG tabletIndications: Hyperlipidemia, unspecified hyperlipidemia type TAKE 1 TABLET BY MOUTH EVERY DAY 90 tablet 1 3 Active triamcinolone (Kenalog) 0.1 % cream Apply topically if needed in the morning and at bedtime (pain and swelling). 30 g 2 3 Active carvedilol (Coreg) 3.125 MG tablet Take 3.125 mg by mouth. Take with food. 4 Active gemfibrozil (Lopid) 600 MG tabletIndications: Hyperlipidemia, unspecified TAKE 1 TABLET BY MOUTH EVERY DAY 90 tablet 1 4 Active Calcium Carb-Cholecalcifer ol 500-10 MG-MCG tablet Take 500 mg by mouth Once per day. 30 tablet 11 4 025 Active amitriptyline (Elavil) 10 MG tablet TAKE 1 TABLET BY MOUTH AT BEDTIME 90 tablet 1 4 Active rosuvastatin (Crestor) 5 MG tabletIndications: Hyperlipidemia, unspecified TAKE 1 TABLET BY MOUTH EVERY DAY 90 tablet 3 5 Active cloNIDine (Catapres) 0.1 MG tablet TAKE 1 TABLET (0.1 MG) BY MOUTH AT BEDTIME 90 tablet 1 5 Active ibuprofen 800 MG tabletIndications: Pain TAKE 1 TABLET BY MOUTH TWICE A DAY WITH FOOD 60 tablet 3 5 Active Active Problems Problem Noted Date Diagnosed Date Mixed hyperlipidemia 05/10/2024 Type 2 diabetes mellitus wit hout complication, without long-term current use of insulin 05/10/2024 Dermatitis 08/18/2023 Assessment & Plan (08/18/2023 2:29 PM EDT): Underarm lesion, similar to previous good response with triamcinolone in the past, will prescribe it today, lesions most likely related to recent change in deodorant Dysuria 02/14/2023 Assessment & Plan (02/14/2023 9:47 AM EDT): Suprapubic tenderness, dysuria and LE on dipstick, will start on nitrofurantoin, send to [facility] and vaginal swab. Glucosuria 02/14/2023 Encounters Date Type Department Care Team Description 01/05/2025 Refill [facility] [address] [place] [address] Aarti Koch MD Pain 12/25/2024 Refill [facility] [address] [place] [address] Aarti Koch MD 12/16/2024 Refill [facility] [address] [place] [address] Aarti Koch MD Hyperlipidemia, unspecified from Last 3 Months Social History Tobacco Use Types Packs/Day Years Used Date Smoking Tobacco: Never Assessed Depression Answer Date Recorded Patient Health Questionnaire-9 Score 4 04/03/2023 Housing Stability Answer Date Recorded What is your housing situation today? I have darion roman 08/18/[address] you li [...] Orientation Straight 08/26/2022 10 :16 AM EDT Last Filed Vital Signs Vital Sign Reading Time Taken Comments Blood Pressure 174/88 11/08/2024 11:27 AM EST Pulse 76 11/08/2024 11:27 AM EST Temperature 36.2 ??C (97.2 ??F) 09/29/2024 9:02 AM ES T Respiratory Rate 20 09/29/2024 9:02 AM EST Oxygen Saturation 98% 09/29/2024 9:02 AM EST Inhaled Oxygen Concentration - - Weight 75.6 kg (166 lb 9.6 oz) 11/08/2024 11:27 AM EST Height 154.9 cm (5' 1 ) 09/29/2024 9:02 AM EST Body Mass Index 31.48 09/29/2024 9:02 AM EST Plan of Treatment Health Maintenance Due Date Last Done Comments CT Colonography 1952 Colonoscopy 1952 Colorectal Cancer Screening 1952 FIT DNA/Cologuard 1952 FIT 1952 FOBT 1952 Sigmoidoscopy 1952 Diabetes: Foot Exam 1962 Eye Exam 1962 Alcohol/Substance Use Screening 1964 Tobacco Screening 1964 Hepatitis C Screening 1970 Pneumococcal Vaccine: 50+ Years (1 of 2 - PCV) 1971 Zoster Vaccines (1 of 2) 2002 Mammogram 03/01/2021 03/01/2019 Depression Screening 04/03/2024 04/03/2023, 04/03/20 23 SDOH Screening 04/03/2024 04/03/2023 COVID-19 Vaccine ( season) 2024 Influenza Vaccine (#1) 2024 Diabetes: Hemoglobin A1C 03/30/2025 024, 06/02/2024, 03/01/2024, Additional history exists Diabetes: Urine Protein Screening 06/02/2025 06/02/2024, 10/18/2021, 07/04/2020 Lipid Panel 06/02/2025 06/02/2024, 06/0 05/2023, 10/11/2022, Additional history exists RSV Patients and Patients Aged 60 years or older (1 - 1-dose 75+ series) 2027 DTaP/Tdap/Td Vaccines (2 - Td or Tdap) 11/06/2028 11/06/2018 HIB Vaccines Aged Out No longer eligi [...] patient's age to complete this topic Meningococcal Vaccine Aged Out No evelia radha eligible based on patient's age to complete this topic RSV under 20 months Aged Out No longe r eligible based on patient's age to complete this topic Rotavirus Vaccines Aged Out No longer eligible based on patient's age to complete this topic Procedures Procedure Name Priority Date/Time Associated Diagnosis Comments POCT GLYCATED HEMOGLOBIN, TOTAL Routine 09/29/2024 9:13 AM EST Type 2 diabetes mellitus without complication, without long-term current use of insulin ([facility]) LIPID PANEL, STANDARD Routine 06/02/2024 10:33 AM EDT Type 2 diabetes mellitus without complication, without long-term current use of insulin ([facility]) Mixed hyperlipidemia ALBUMIN, RANDOM URINE W/CREATININE Routine 06/02/2024 10:28 AM EDT Type 2 diabetes mellitus without complication, without long-term current use of insulin ([facility]) BI MAMMOGRAM SCREENING BILATERAL Routine 03/01/2019 9:02 AM EDT from Last 3 Months or Most Recently Relevant to Health Maintenance Results * (ABNORMAL) POCT HGB A1C (09/29/2024 9:13 AM EST) Hemoglobin A1C 6.5(A) 4.0 - 6.0 % QC Media Lot # [id number] Lot# Expiration Date [id number] Blood 09/29/2024 9:13 AM EST Aarti Koch MD POINT OF CARE TEST ENTER/EDIT OR DERABLES Final Result * (ABNORMAL) Lipid Panel, Standard (06/02/2024 10:33 AM EDT) Triglycerides 99 <150 mg/dL [facility] Comment:Desirable Triglyceri de: less than 150 mg/dLBorderline High Triglyceride 150-199 mg/dLHigh Triglyceride: 200-499 mg/dLVery High Triglyceride: greater than or equal to 5OO mg/dL Cholesterol 235(H) <200 mg/dL [facility] Comment:Desirable Cholestero l: less than 200 mg/dLBorderline High Cholesterol: 200-239 mg/dLHigh Cholesterol: greater than 239 mg/dL LDL Cholesterol Calculated 150(H) <100 mg/dL [facility] Comment:Desirable LDL: less than 100 mg/dLNear Optimal/Above Optimal LDL: 110- 129 mg/dLBorderline High LDL: 130-159 mg/dLHigh LDL: 160-189 mg/dLVery High LDL: greater than or equal to 190 mg/dL HDL Cholesterol 66 >40 mg/dL [facility] Comment:Desirable HDL: great er than 40 mg/dL Note: This HDL assay may give artificially low results in patients with liver disease. Blood Venous blood specimen / Unknown 06/02/2024 10:33 AM EDT 06/02/2024 10:33 AM EDT Aarti Koch MD LAB BLOOD ORDERABLES Final Resul t [facility] [address] [place], [place] [phone] * (ABNORMAL) Albumin, Random Urine W/Creatinine (06/02/2024 10:28 AM EDT) Creatinine, Urine 168.53 mg/dL [facility] Microalbumin Urine 54.0 mg/L [facility] Microalbum Creatinine Ratio Ur 32.0(H) <30 ug/mg cr [facility] Comment:Albumin/Creatinine R atio Reference Ranges: Normal: < 30 ug/mg creatinine Microalbuminuria: 30 - 300 ug/mg creatinineClinical Albuminuria: > 300 ug/mg creatinine Urine (Urine, Random) 06/02/2024 10:28 AM EDT 06/02/2024 11:36 AM EDT Aarti Koch MD LAB URINE ORDERABLES Final Resul t [facility] [address] [place] [address] [phone] * 3D DIGITAL RACHEL SCR MAMMO 1 (03/01/2019 9:02 AM EDT) Anatomical Region Laterality Modality Breast Bilateral Mammography 03/01/2019 9:02 AM EDT Narrative 03/01/2019 9:04 AM EDT Refer to the Notes tab for result details [facility] Procedure: 3D DIGITAL RACHEL SCR MAMMO 1 Procedure Note Provider, MD Dilma - 01/18/2023 Refer to the Notes tab for result details [facility] Procedure: 3D DIGITAL RACHEL SCR MAMMO 1 Aarti oKch MD IMG BI PROCEDURES Final Result from Last 3 Months or Most Recently Relevant to Health Maintenance Insurance [facility] Advance Directives Documents on File Type Date Recorded Patient Paper Latcher Expl anation Advance Directives and Livin g Will 11/08/2024 12:47 PM HCP Care Teams Heavy Machinery Operator Relationship Specialty Start Date End Date Aarti Koch MD [address] [place] [id number] PCP - General Family Medicine 10/12/12
--- OUTSIDE RECORDS SUMMARY | 2025-02-09 09:25 | XMS_ITS | Encounter Summary ---
Author Organization [place] [address] Care Team Providers Care Medical Specialist Name Role Phone Aarti Koch MD Primary Care Provider [phone] Encounter Details Date Type Department Care Team (Late Contact Info) Description 08/17/2024 4:48 PM EDT Hospital Encounter TH HISTORIC ENCOUNTERS [facility]AST[facility] CONVERSION ONLY Akua Wolfe PA [address] [facility] [address] [place] [phone] Social History Tobacco Use Types Packs/Day Years Used Date Smoking Tobacco: Never Assessed Comments Unknown Sex and Gender Information Value Date Recorded Sex Assigned at Not on file Legal Sex Female 11:06 AM EDT Gender Identity Not on file Sexual Orientation Not on file documented as of this encounter Plan of Treatment Upcoming Encounters Date Type Department Care Team (Late Contact Info) Description 03/24/2025 9:45 AM EDT Office Visit Orthopedic Surgery - [place] [address] [facility] [address] [place] [phone] David Hermosillo DPM [address] [facility] [address] [place], [place] [phone] documented as of this encounter Visit Diagnoses Not on filedocumented in this encounter Care Teams Medical Specialist Relationship Specialty Start Date End Date Aarti Koch MD [address] [place] [address] PCP - General 11/14/23 documented as of this encounter
--- OUTSIDE RECORDS SUMMARY | 2025-02-09 09:25 | XMS_ITS | Encounter Summary ---
Author Organization [employer] Address [address] [facility] [address] [place] [address] Care Team Providers Care Motor Vehicles Supervisor Name Role Phone Aarti Koch MD Primary Care Provider [phone] Encounter Details Date Type Department Care Team ([facility] Contact Info) Description 11/05/2024 Orders Only [facility] [address] [place], [place] [phone] Provider, MD Dilma Social History Tobacco Use Types Packs/Day Years [...] on file documented as of this encounter Procedures Procedure Name Priority Date/Time Associated Diagnosis Comments XR WRIST 3+ VIEWS LEFT Routine 11/05/2024 11:14 AM EST documented in this encounter Results * XR Wrist 3+ Views Left (11/05/2024 11:14 AM EST) Anatomical Region Laterality Modality Upper Extremities, Wrist Left Radiogr aphic Imaging us Historical Provider MD LINDSEY XR PROCEDURES Final R esult documented in this encounter Visit Diagnoses Not on filedocumented in this encounter Additional Health Concerns Assessment Noted Time PHQ-9 Depression Total Score: 4 04/03/20 23 9:50 AM EDT documented as of this encounter Care Teams Motor Vehicles Supervisor Relationship Specialty Start Date End Date Aarti Koch MD [address] [place] [id number] PCP - General Family Medicine 10/12/12 documented as of this encounter
== END ==
LOC: HO.CARD 08:54
PROVIDERS: PCP Student in an Organized Health Care Education/Training Program; Visit Provider Internal Medicine
DX: I42.9 Cardiomyopathy, unspecified (principal)
CPT/HCPCS: 93306

== ENCOUNTER → 2025-02-09 08:56 | Outpatient (BNV) | payer OTHER, SELFPAY | PROVIDERS: PCP Student in an Organized Health Care Education/Training Program; Visit Provider Internal Medicine Cardiovascular Disease | DX: I42.8 Other cardiomyopathies (principal); I44.7 Left bundle-branch block, unspecified | CPT/HCPCS: 93306; 93356 ==

== ENCOUNTER 2025-03-07 10:19 | Outpatient (AMB) | payer OTHER, SELFPAY ==
--- NOTE | 2025-03-07 10:26 | MHC.OFFVIS ---
Vital Signs 03/07/25 10:28 Height 5 ft Weight 162 lb BMI 31.6 BP 148/80 H Blood Pressure Location Lt brachial Position Sitting Pulse 76 Pulse Source Monitor Intake Visit Reasons: 6 month f/up echo labs Allergies Sulfa (Sulfonamide Antibiotics) [SULFA (SULFONAMIDE ANTIBIOTICS)] Allergy (Unknown, Verified 01/12/25 09:36) RASH Medication List - Last Reconciled 03/07/25 by Cuco Castillo MD amitriptyline 10 mg PO BEDTIME betamethasone dipropionate 0.05% 1 appl topical BID calcium carbonate-vitamin D3 500 mg-10 mcg (400 unit) (Calcium 500 With D) 1 tab PO DAILY carvedilol 3.125 mg PO BID gemfibrozil mg PO DAILY omeprazole 20 mg PO DAILY PRN rosuvastatin 5 mg PO DAILY sacubitril-valsartan 49-51 mg (Entresto) 1 tab PO BID 90 days HPI Comments Details: Stefanie returns for follow-up regarding left bundle-branch block. Noted on EKG in setting of getting colonoscopy. Patient herself feels fine. She does not have any overt cardiac symptoms. She has hypertension, not well controlled. [facility] Medical History Primary hypertension Surgical History Hx of colonoscopy Hx of tubal ligation Hx of malignant neoplasm of head and neck Hx of hysterectomy Hx of ankle fusion Family History Father No problems noted. Mother Kidney problem Social History Household Members: None Alcohol intake: current Alcohol intake frequency: holidays/special occasions only Patient Tobacco Use Status: Current everyday Tobacco user Tobacco use type: Cigarette Cigarettes Per Day: 2 Review of Systems Const Denies weakness ENT Denies dizziness Card Denies chest pain, Denies chest pain with activity, Denies syncope, Denies rapid heart rate, Denies pedal edema, Denies edema, Denies leg edema, Denies lightheadedness, Denies palpitations, Denies dyspnea, Denies dyspnea on exertion and Denies orthopnea Resp Denies cough, Denies dyspnea and Denies dyspnea on exertion GI Denies hematochezia and Denies change in stool character Musc Denies abnormal gait, Denies muscle cramps, Denies muscle weakness, Denies numbness, Denies radiating pain into limb and Denies tingling Neuro Denies abnormal gait, Denies dizziness, Denies syncope, Denies numbness, Denies tingling and Denies weakness Endo Denies palpitations Physical Exam Vital Signs: Last Vital Signs Pulse 76 03/07/25 10:28 BP 148/80 H 03/07/25 10:28 BMI result Body Mass Index 31.6 Const General: comfortable and no acute distress Orientation/consciousness: patient oriented x3 HEENT Other: Unremarkable Head: Yes normal to inspection Neck Neck: Yes normal visual inspection Chest Chest palpation & inspection: normal inspection of the chest Resp Auscultation: clear to auscultation bilaterally Cardio Palpation: normal PMI Heart sounds: S1 normal heart sound present, S2 normal heart sound present, no gallops, no murmurs and no rubs GI Palpation (GI): Soft to palpation Back/Spine/Pelvis Other: unremarkable Skin General skin exam: no rashes or lesions noted Neuro General: patient oriented x3 Extrem General: Yes normal to inspection Psych Mental Status: mental status grossly normal Office Procedures EKG Details: EKG with underlying sinus rhythm at 76/Min; nonspecific intraventricular conduction defect. Left bundle morphology. [id number], Complete Assessment & Plan Assessment & Plan (1) LBBB (left bundle branch block): Code(s): I44.7 - Left bundle-branch block, unspecified Category: Medical (2) Cardiomyopathy: Code(s): I42.9 - Cardiomyopathy, unspecified Category: Medical (3) Primary hypertension: Code(s): I10 - Essential (primary) hypertension Category: Medical Plan Initial Echocardiogram with LVEF of 35-40%. Moderate septal hypertrophy. Otherwise unremarkable. In the repeat echocardiogram, LVEF improved to 50-55%. However, not clear how much of variation is due to left bundle-branch block itself. Myocardial perfusion imaging study shows probably normal perfusion. Overall, left bundle-branch block with associated cardiomyopathy but no overt heart failure. Blood pressure seems to be on the higher side. We can go up on the dose of Entresto. Continue carvedilol. No need for diuretics at this time. Repeat labs due to Entresto dose increased. Discussed. We will follow up in 6 months. She will call with any interim concerns. Discussion Notes During the consultation, I explained to the patient the need to intensify her treatment for Essential Hypertension due to high blood pressure, which could lead to weakening of the heart. Our plan includes increasing the dosage of Entresto, with routine blood work scheduled to assess potential impacts, such as changes in potassium levels. We discussed the importance of adhering to the new medication regimen, its benefits in controlling blood pressure, and the necessity of preventing cardiac complications. The patient voiced understanding and agreement with this management plan. Follow-up is scheduled for six months, with further lab work after medication adjustments. Patient was informed and verbally consented to the use of an ambient scribe for clinic note documentation during this visit. Orders: Orders Basic Metabolic Panel 2 Weeks Cuco Castillo MD I10 - Essential (primary) hypertension Medications: New sacubitril-valsartan 97-103 mg 1 tab PO BID 180 tabs 3RF 90 days Cuco Castillo MD Changed From omeprazole 20 mg PO DAILY 90 caps 1RF To omeprazole 20 mg PO DAILY PRN Karla Mansfield MD Discontinued sacubitril-valsartan 49-51 mg (Entresto) Discontinued Reason: Doctor's Order 1 tab PO BID 90 days 180 tabs 3RF Patient Instructions: - Continue taking current heart medications as prescribed. - Start new prescribed dose of Entresto as directed. - Go to the pharmacy to collect medication adjustments today. - Schedule blood work for two weeks after starting new medication dose. - Return for follow-up visit every six months. - Monitor for symptoms like chest pain and report them immediately. Coding Level of Care Code Est Pt Level 4 (92238) Complex EM visit Add On G2211 Diagnoses LBBB (left bundle branch block) I44.7 Cardiomyopathy I42.9 Primary hypertension I10 CPT Codes EKG - CPT: 77169-[id number], Complete ([id number])
[2025-03-07 10:28] VITALS: BP 148/80; PULSE 76; BMI 31.6
--- OUTSIDE RECORDS SUMMARY | 2025-03-07 10:50 | XMS_ITS | Encounter Summary ---
Author Organization [employer] Address [address] [place] [address] [address] [place] [address] Care Team Providers Care Senior Regulatory Affairs Specialist Name Role Phone Aarti Koch MD Primary Care Provider [phone] Encounter Details Date Type Department Care Team [...] on filedocumented in this encounter Care Teams Senior Regulatory Affairs Specialist Relationship Specialty Start Date End Date Aarti Koch MD [address] [place] [id number] PCP - General Family Medicine 10/12/12 documented as of this encounter
--- OUTSIDE RECORDS SUMMARY | 2025-03-07 10:50 | XMS_ITS | Clinical Summary ---
Author Organization [employer] Address [address] [place] [address] 7t [place] [address] Care Team Providers Care Inspector Paper Products Name Role Phone Aarti Koch MD Primary Care Provider [phone] Allergies Active Allergy Reactions Criticality Noted Date Comments Sulfa Antibiotics Rash Low 02/14/2023 Medications acetaminophen (Tylenol) 500 MG tablet take 1-2 tablet by oral route every 6-8 hours as needed 01/06/20 21 Active albuterol (ProAir HFA) 108 (90 Base) MCG/ACT inhaler take 2 puffs by Inhalation route 4 times every day 06/04/20 21 Active Diclofenac Sodium 1 % gel apply (2G) by topical route 4 times every day to the affected area(s) 02/04/20 19 Active diphenhydrAMINE (Benadryl Allergy) 25 MG tablet take 2 tablet by oral route every 4 - 6 hours as needed as needed 05/04/20 20 Active ketotifen (Zaditor) 0.025 % ophthalmic solution instill 1 drop by ophthalmic route 2 times every day into affected eye(s) 08/22/20 21 Active lidocaine (Xylocaine) 2 % solution take 15 milliliter by oral route every 6 hours and swish and spit out 08/01/20 20 Active FreeStyle lancets CHECK BS BY SKIN ROUTE 2 TIMES EVERY DAY 100 each 11 02/27/20 23 Active OneTouch Delica Lancets 33G misc Check sugars BID 100 each 11 02/29/20 23 Active Blood Glucose Monitoring Suppl (ONE TOUCH ULTRA 2) w/Device kit Use to check blood sugars BID 1 kit 03/11/20 23 Active Blood Glucose Monitoring Suppl (ONE TOUCH ULTRA 2) w/Device kit 1 Units 2 times daily. 1 kit 03/10/20 23 Active OneTouch Delica Lancets 33G [facility] CHECK BS BY SKIN ROUTE 2 TIMES EVERY DAY 60 each 5 03/10/20 23 Active Oyster Shell Calcium/D3 500-10 MG-MCG tabletIndications :Hyperlipidemia, unspecified hyperlipidemia type TAKE 1 TABLET BY MOUTH EVERY DAY 90 tablet 1 07/03/20 23 Active triamcinolone (Kenalog) 0.1 % cream Apply topically if needed in the morning and at bedtime (pain and swelling). 30 g 2 08/18/20 23 Active carvedilol (Coreg) 3.125 MG tablet Take 3.125 mg by mouth. Take with food. 03/04/20 24 Active Calcium Carb-Cholecalcife rol 500-10 MG-MCG tablet Take 500 mg by mouth Once per day. 30 tablet 11 09/29/20 24 2024 Active amitriptyline (Elavil) 10 MG tablet TAKE 1 TABLET BY MOUTH AT BEDTIME 90 tablet 1 10/13/20 24 Active rosuvastatin (Crestor) 5 MG tabletIndications :Hyperlipidemia, unspecified TAKE 1 TABLET BY MOUTH EVERY DAY 90 tablet 3 12/17/19 25 Active cloNIDine (Catapres) 0.1 MG tablet TAKE 1 TABLET (0.1 MG) BY MOUTH AT BEDTIME 90 tablet 1 12/29/19 25 Active ibuprofen 800 MG tabletIndications :Pain TAKE 1 TABLET BY MOUTH TWICE A DAY WITH FOOD 60 tablet 3 01/07/20 25 Active gemfibrozil (Lopid) 600 MG tabletIndications :Hyperlipidemia, unspecified TAKE 1 TABLET BY MOUTH EVERY DAY 90 tablet 1 02/17/20 25 Active Lancets (OneTouch Delica Plus Tcurcp04P) [facility] CHECK SUGARS TWICE A DAY 100 each 11 02/23/20 25 Active OneTouch Ultra test strip TEST BLOOD SUGAR TWICE A DAY 100 strip 11 02/23/20 25 Active FREESTYLE LITE test strip CHECK BS BY SKIN ROUTE 2 TIMES EVERY DAY 100 strip 11 02/27/20 23 2024 Discontinued gemfibrozil (Lopid) 600 MG tabletIndications :Hyperlipidemia, unspecified TAKE 1 TABLET BY MOUTH EVERY DAY 90 tablet 1 06/21/20 24 2024 Discontinued Active Problems Problem Noted Date Diagnosed Date [...] Encounters Date Type Department Care Team Description 02/17/2025 [facility]ill [facility] [address] [place] [address] Aarti Koch MD 02/16/2025 [facility]ill [facility] [address] [place] [address] Aarti Koch MD Hyperlipidemia, unspecified 01/05/2025 Refill [facility] [address] [place] [address] Aarti Koch MD Pain 12/25/2024 [facility]ill [facility] [address] [place] [address] Aarti Koch MD 12/16/2024 Refill [facility] [address] [place] [address] Aarti Koch MD Hyperlipidemia, unspecified from Last 3 Months Social History Tobacco Use Types Packs/Day Years Used Date Smoking Tobacco: Never Assessed Depression Answer Date Recorded Patient Health Questionnaire-9 Score 4 04/03/2023 Housing Stability Answer Date Recorded What is your housing situation today? I have [place] owens 08/18/[address] you [...] 06/02/2024, 10/18/2021, 07/04/2020 Lipid Panel 06/02/2025 06/02/2024, 06/05/2023, 10/11/2022, Additional history exists RSV Patients and [...] complication, without long-term current use of insulin ([facility]) LIPID PANEL, STANDARD Routine 06/02/2024 10:33 AM EDT Type 2 diabetes mellitus without complication, without long-term current use of insulin ([facility]) Mixed hyperlipidemia ALBUMIN, RANDOM URINE W/CREATININE Routine 06/02/2024 10:28 AM EDT Type 2 diabetes mellitus without complication, without long-term current use of insulin ([facility]) BI MAMMOGRAM SCREENING BILATERAL Routine 03/01/2019 9:02 AM EDT from Last 3 Months or Most Recently Relevant to Health Maintenance Results * (ABNORMAL) POCT HGB A1C (09/29/2024 9:13 AM EST) Hemoglobin A1C 6.5(A) 4.0 - 6.0 % QC Media Lot # [id number] Lot# Expiration Date [id number] Blood 09/29/2024 9:13 AM EST Aarti Koch MD POINT OF CARE TEST ENTER/EDIT OR DERABLES Final Result * (ABNORMAL) Lipid Panel, Standard (06/02/2024 10:33 AM EDT) Triglycerides 99 <150 mg/dL [facility] Comment:Desirable Triglyceri de: less than 150 mg/dLBorderline High Triglyceride 150-199 mg/dLHigh Triglyceride: 200-499 mg/dLVery High Triglyceride: greater than or equal to 5OO mg/dL Cholesterol 235(H) <200 mg/dL [facility] Comment:Desirable Cholestero l: less than 200 mg/dLBorderline High Cholesterol: 200-239 mg/dLHigh Cholesterol: greater than 239 mg/dL LDL Cholesterol Calculated 150(H) <100 mg/dL [facility] Comment:Desirable LDL: less than 100 mg/dLNear Optimal/Above Optimal LDL: 110- 129 mg/dLBorderline High LDL: 130-159 mg/dLHigh LDL: 160-189 mg/dLVery High LDL: greater than or equal to 190 mg/dL HDL Cholesterol 66 >40 mg/dL [facility] Comment:Desirable HDL: great er than 40 mg/dL Note: This HDL assay may give artificially low results in patients with liver disease. Blood Venous blood specimen / Unknown 06/02/2024 10:33 AM EDT 06/02/2024 10:33 AM EDT Result [facility] us Aarti Koch MD LAB BLOOD ORDERABLES Final Resul t Performing Organization Address [facility] de Phone Number [facility] [address] [place] [phone] * (ABNORMAL) Albumin, Random Urine W/Creatinine (06/02/2024 10:28 AM EDT) Creatinine, Urine 168.53 mg/dL [facility] Microalbumin Urine 54.0 mg/L H [facility] Microalbum Creatinine Ratio Ur 32.0(H) <30 ug/mg cr [facility] Comment:Albumin/Creatinine R atio Reference Ranges: Normal: < 30 ug/mg creatinine Microalbuminuria: 30 - 300 ug/mg creatinineClinical Albuminuria: > 300 ug/mg creatinine Urine (Urine, Random) 06/02/2024 10:28 AM EDT 06/02/2024 11:36 AM EDT Result [facility] us Aarti Koch MD LAB URINE ORDERABLES Final Resul t Performing Organization Address [facility] Phone Number [facility] [address] [place] [phone] * 3D DIGITAL RACHEL SCR MAMMO 1 (03/01/2019 9:02 AM EDT) Anatomical Region Laterality Modality Breast Bilateral Mammography 03/01/2019 9:02 AM EDT Narrative 03/01/2019 9:04 AM EDT Refer to the Notes tab for result details Legacy Procedure: 3D DIGITAL RACHEL SCR MAMMO 1 Procedure Note ProviderDilma MD - 01/18/2023 Refer to the Notes tab for result details Legacy Procedure: 3D DIGITAL RACHEL SCR MAMMO 1 us Aarti Koch MD IMG BI PROCEDURES Final Result from Last 3 Months or Most Recently Relevant to Health Maintenance Insurance [facility] [employer] [employer] (HMO D-SNP) [place] [id number] Advance Directives Documents on File Type Date Recorded Patient Resort Keeper Expl anation Advance Directives and Livin g Will 11/08/2024 12:47 PM HCP Care Teams Inspector Paper Products Relationship Specialty Start Date End Date Aarti Koch MD [address] [place] [address] PCP - General Family Medicine 10/12/12
--- OUTSIDE RECORDS SUMMARY | 2025-03-07 10:50 | XMS_ITS | Encounter Summary ---
Author Organization [employer] Address [address] [facility] 7t [place] [address] Care Team Providers Care Pouako Kura [place] Maori Name Role Phone Aarti Koch MD Primary Care Provider [phone] Encounter Details Date Type Department Care Team ([facility] Contact Info) Description 12/11/2023 Telephone [facility]EDS [address] [place], [place] [phone] Aarti Koch MD [address] [place], [place] [phone] Social History Tobacco Use Types Packs/Day Years [...] - 12/11/2023 2:00 PM EST Tc from [facility] with [facility] cardiology requesting last OV notes to be faxed to [phone]. States office received referral but no OV notes. documented in this encounter Plan of Treatment Not on file documented as of this encounter Visit Diagnoses Not on filedocumented in this encounter Additional Health Concerns Assessment Noted Time PHQ-9 Depression Total Score: 4 04/03/20 23 9:50 AM EDT documented as of this encounter Care Teams P[place]ako [place]ura [place] Maori Relationship Specialty Start Date End Date Aarti Koch MD [address] [place] [address] PCP - General Family Medicine 10/12/12 documented as of this encounter
--- OUTSIDE RECORDS SUMMARY | 2025-03-07 10:50 | XMS_ITS | Encounter Summary ---
Author Organization [employer] Address [address] [place] [address] 7 [place] [address] Care Team Providers Care Senior Principal Software Engineer Name Role Phone Aarti Koch MD Primary Care Provider [phone] Encounter Details Date Type Department Care Team ([facility] Contact Info) Description 10/18/2022 Orders Only [facility] MEDICINE [address] [place] [address] Aarti Koch MD [address] [place] [address] Social History Tobacco Use Types Packs/Day Years [...] filedocumented in this encounter Care Teams Senior Principal Software Engineer Relationship Specialty Start Date End Date Aarti Koch MD [address] [place] [address] PCP - General Family Medicine 10/12/12 documented as of this encounter
--- OUTSIDE RECORDS SUMMARY | 2025-03-07 10:50 | XMS_ITS | Clinical Summary ---
Author Organization 175 [facility] Address [address] [place] [address] Phone Care Team Providers Care Upholstery Restorer Name Role Phone Aarti Koch MD Primary Care Provider [phone] Allergies Active Allergy Reactions Criticality Noted Date [...] 3 (three) times a day. Active tetracycline (ACHROMYCIN,SUMYC IN) 250 mg capsule Take 1 capsule (250 mg total) by mouth 4 (four) times a day. Active betamethasone dipropionate (DIPROSONE) 0.05 % ointment APPLY TO THE FEET TWICE DAILY FOR TWO WEEKS, BREAK ONE WEEK, REPEAT NEEDED 5 Active omeprazole (PriLOSEC) [address] capsule Take 1 capsule (20 mg total) by mouth 1 (one) time each day. 5 Active cloNIDine (CATAPRES) 0.1 mg tablet Take 1 tablet (0.1 mg total) by mouth. 5 Active carvediloL (COREG) 3.125 mg tablet Take 1 tablet (3.125 mg total) by mouth 2 (two) times a day. Active Entresto 49-51 mg per tablet 5 Active Calcium 500 With D 500 mg-10 mcg (400 unit) per tablet Take 1 tablet by mouth 1 (one) time each day. Active ibuprofen (ADVIL,MOTRIN) 800 mg tablet Take 1 tablet (800 mg total) by mouth 2 (two) times a day with meals. 5 Active rosuvastatin (CRESTOR) 5 mg tablet Take 1 tablet (5 mg total) by mouth daily. 5 Active lancets (OneTouch Delica Plus Lancet) 33 gauge CHECK SUGARS TWICE A DAY 4 Active Encounters Date Type Department Care Team Description 02/01/2025 10:00 AM EDT Office Visit [facility]opedic [facility] 175 [facility] [address] [place] [address] Akua Wolfe PA Sprain of left wrist, subsequent encounter (Primary Dx); Lateral epicondylitis of left elbow 01/18/2025 9:45 AM EDT Office Visit Orthopedic [facility] 250 175 [facility] 250 [place] [phone] David Hermosillo, DPM Primary osteoarthritis of both feet (Primary Dx); Ingrowing nail; Dermatophytosis of nail; Diabetic mononeuropathy simplex (CMS/HCC V24, CMS/HCC V28); Pain in toe of right foot; Pain in toe of left foot 01/04/2025 10:30 AM EDT Office Visit Orthopedic [facility] 175 [facility] 140 [place] [phone] Akua Wolfe PA Sprain of left wrist, subsequent encounter (Primary Dx); Lateral epicondylitis of left elbow from Last 3 Months Surgical History Surgery Date Site/Laterality Comments COLONOSCOPY PROCEDURE: HISTORICAL COLONOSCOPY ANKLE SURGERY PROCEDURE: HISTORICAL ANKLE SURGERY Medical History Medical History Date Comments Diabetes mellitus type 2, co ntrolled, with complications (CMS/HCC V24, CMS/HCC V28) DX:Diabetes mellitus type 2, controlled, with [...] AM EDT Office Visit [facility] - [place] [address] [phone] David Hermosillo, DPM [address] [address] Health Maintenance Due Date Last Done Comments [...] Procedure Name Priority Date/Time Associated Diagnosis Comments [place] INJECTION(S) TENDON ORIGIN/INSERT SINGLE Routine 01/04/2025 10:30 AM EDT Lateral epicondylitis of left elbow from Last 3 Months Results * [place] INJECTION(S) TENDON ORIGIN/INSERT SINGLE (01/04/2025 10:30 AM [...] Final Result from Last 3 Months Insurance [facility] MEDICARE Member Subscriber Plan / Payer (Ef fective 2017-Present) Name:Stefanie Montanez Relation to Subscriber:Self Name:Stefanie Montanez Payer ID:[id number] Group ID:[id number] Type:Not on file Address: [place] [address] [place] [id number] Care Teams Upholstery Restorer Relationship Specialty Start Date End Date Aarti Koch MD [address] [place] [address] PCP - General 11/14/23
--- OUTSIDE RECORDS SUMMARY | 2025-03-07 10:50 | XMS_ITS | Encounter Summary ---
Author Organization [employer] Address [address] [place] [address] 7 [place] [address] Care Team Providers Care Assistant Corporate Secretary Name Role Phone Aarti Koch MD Primary Care Provider [phone] Reason for Visit * Reason Onset Date Comments Referral 10/09/2023 Encounter Details Date Type Department Care Team ([facility] Contact Info) Description 10/09/2023 Telephone [facility] MED & PEDS [address] [place], [place] [phone] Aarti Koch MD 505 [place] [address] Referral Social History Tobacco Use Types Packs/Day [...] the past 12 months, has t he [employer], oil or water company threatened to shut [...] was advised by provider to see a wood boatbuilder apprentice due to 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 Any questions, please contact daughter at [phone] documented in this encounter Plan of Treatment Not on file documented as of this encounter Visit Diagnoses Not on filedocumented in this encounter Additional Health Concerns Assessment Noted Time PHQ-9 Depression Total Score: 4 04/03/20 23 9:50 AM EDT documented as of this encounter Care Teams Assistant Corporate Secretary Relationship Specialty Start Date End Date Aarti Koch MD [address] [place] [address] PCP - General Family Medicine 10/12/12 documented as of this encounter
--- OUTSIDE RECORDS SUMMARY | 2025-03-07 10:51 | XMS_ITS | Encounter Summary ---
Author Organization [employer] Address [address] [place] [address] Care Team Providers Care Personalized Living Assistant Name Role Phone Aarti Koch MD Primary Care Provider [phone] Encounter Details Date Type Department Care Team (Late Contact Info) Description 08/17/2024 4:48 PM EDT Hospital Encounter TH HISTORIC ENCOUNTERS [facility]ASTERN CONVERSION ONLY Akua Wolfe PA [address] [facility] 140 [place] [phone] Social History Tobacco Use Types Packs/Day Years [...] AM EDT Office Visit Orthopedic Surgery - [place] [address] [facility] 250 [place] [phone] David Hermosillo DPM [address] [facility] 250 [place], [place] [phone] documented as of this encounter Visit Diagnoses Not on filedocumented in this encounter Care Teams Personalized Living Assistant Relationship Specialty Start Date End Date Aarti Koch MD 230 [place] [address] PCP - General 11/14/23 documented as of this encounter
--- OUTSIDE RECORDS SUMMARY | 2025-03-07 10:51 | XMS_ITS | Encounter Summary ---
Author Organization [email or web address] Address [address] [facility] 7t [place] [address] Care Team Providers Care Basin Cleaner Name Role Phone Aarti Koch MD Primary Care Provider [phone] Encounter Details Date Type Department Care Team ([facility] Contact Info) Description 11/05/2024 Orders Only [facility] [address] [place] [address] Provider, MD Dilma Social History Tobacco Use [...] documented as of this encounter Care Teams Basin Cleaner Relationship Specialty Start Date End Date Aarti Koch MD [address] [place] [address] PCP - General Family Medicine 10/12/12 documented as of this encounter
== END 2025-03-07 10:48 | disposition home or self-care (01) ==
LOC: HO.HCS 10:19
PROVIDERS: PCP Student in an Organized Health Care Education/Training Program; Visit Provider Internal Medicine
DX: I44.7 Left bundle-branch block, unspecified (principal); I42.9 Cardiomyopathy, unspecified; I10 Essential (primary) hypertension
CPT/HCPCS: 93010; 99214; G2211

== ENCOUNTER → 2025-03-07 10:19 | Outpatient (BNVA) | payer OTHER, SELFPAY | PROVIDERS: PCP Student in an Organized Health Care Education/Training Program; Visit Provider Internal Medicine | DX: I44.7 Left bundle-branch block, unspecified (principal); I42.9 Cardiomyopathy, unspecified; I10 Essential (primary) hypertension | CPT/HCPCS: 93005; 99212 ==

== ENCOUNTER 2025-03-17 10:04 | Outpatient (REF) | payer OTHER, SELFPAY ==
--- OUTSIDE RECORDS SUMMARY | 2025-03-17 10:45 | XMS_ITS | Encounter Summary ---
Author Organization [employer] Address [address] [place] [address] 7 [place] [address] Care Team Providers Care President And Chief Commercial Officer Name Role Phone Aarti Koch MD Primary Care Provider [phone] Encounter Details Date Type Department Care Team ([facility] Contact Info) Description 10/18/2022 Orders Only [facility] 230 [place] [address] Aarti Koch MD 505 [place] [address] Social History Tobacco Use Types Packs/Day Years [...] on filedocumented in this encounter Care Teams President And Chief Commercial Officer Relationship Specialty Start Date End Date Aarti Koch MD 230 [place] [address] PCP - General Family Medicine 10/12/12 documented as of this encounter
--- OUTSIDE RECORDS SUMMARY | 2025-03-17 10:45 | XMS_ITS | Clinical Summary ---
Author Organization 175 [facility] Address 175 [place] [address] Phone Care Team Providers Care Inbound Sales Representative Name Role Phone Aarti Koch MD Primary Care Provider Allergies Active Allergy Reactions Criticality Noted Date [...] Visit Orthopedic [facility] 175 [facility] 140 [place] [address] Akua Wolfe PA Sprain of left wrist, subsequent encounter (Primary Dx); Lateral epicondylitis of left elbow 01/18/2025 9:45 AM EDT Office Visit Orthopedic [facility] 250 175 [facility] 250 [place] [phone] David Hermosillo, DPM Primary osteoarthritis of both feet (Primary Dx); Ingrowing nail; Dermatophytosis of nail; Diabetic mononeuropathy simplex (CMS/HCC V24, CMS/HCC V28); Pain in toe of right foot; Pain in toe of left foot 01/04/2025 10:30 AM EDT Office Visit [facility] 175 [facility] 140 [place] [phone] Akua Wolfe PA Sprain of left wrist, [...] AM EDT Office Visit Orthopedic Surgery - [place] [address] [phone] David Hermosillo, DPM [address] [address] Health Maintenance Due Date Last Done Comments [...] Procedure Name Priority Date/Time Associated Diagnosis Comments [place] INJECTION(S) TENDON ORIGIN/INSERT SINGLE Routine 01/04/2025 10:30 AM EDT Lateral epicondylitis of left elbow from Last 3 Months Results * [place] INJECTION(S) TENDON ORIGIN/INSERT SINGLE (01/04/2025 10:30 AM [...] Final Result from Last 3 Months Insurance [facility] MEDIC[facility] Member Subscriber Plan / Payer (Ef fective 2017-Present) Name:Stefanie Montanez Relation to Subscriber:Self Name:Stefanie Montanez Payer ID:[id number] Group ID:[id number] Type:Not on file Address: [place] [address] [place] [phone] Care Teams Inbound Sales Representative Relationship Specialty Start Date End Date Aarti Koch MD [address] [place] [address] PCP - General 11/14/23
--- OUTSIDE RECORDS SUMMARY | 2025-03-17 10:45 | XMS_ITS | Encounter Summary ---
Author Organization [employer] Address [address] [facility] 7t [place] [address] Care Team Providers Care Singe Machine Operator Name Role Phone Aarti Koch MD Primary Care Provider Encounter Details Date Type Department Care Team ([facility] Contact Info) Description 12/11/2023 Telephone [facility] CHC MED & PEDS 505 [place], [place] [phone] Aarti Koch MD 505 [place], [place] [phone] Social History Tobacco Use Types Packs/Day Years [...] - 12/11/2023 2:00 PM EST Tc from [facility] with [facility] cardiology requesting last OV notes to be faxed to [phone]. States office received referral but no OV notes. documented in this encounter Plan of Treatment Not on file documented as of this encounter Visit Diagnoses Not on filedocumented in this encounter Additional Health Concerns Assessment Noted Time PHQ-9 Depression Total Score: 4 04/03/20 23 9:50 AM EDT documented as of this encounter Care Teams Singe Machine Operator Relationship Specialty Start Date End Date Aarti Koch MD 230 [place] [address] PCP - General Family Medicine 10/12/12 documented as of this encounter
--- OUTSIDE RECORDS SUMMARY | 2025-03-17 10:45 | XMS_ITS | Encounter Summary ---
Author Organization [employer] Address [address] [place] [address] 7 [place] [address] Care Team Providers Care Final Inspector Balance Wheel Name Role Phone Aarti Koch MD Primary Care Provider [phone] Encounter Details Date Type Department Care Team ([facility] Contact Info) Description 11/05/2024 Orders Only [facility] [address] [place] [address] Provider, MD Dilma Social History Tobacco Use [...] documented as of this encounter Care Teams Final Inspector Balance Wheel Relationship Specialty Start Date End Date Aarti Koch MD [address] [place] [phone] PCP - General Family Medicine 10/12/12 documented as of this encounter
--- OUTSIDE RECORDS SUMMARY | 2025-03-17 10:45 | XMS_ITS | Clinical Summary ---
Author Organization [employer] Address [address] [place] [address] 7 [place] [address] Care Team Providers Care Anodizer Name Role Phone Aarti Koch MD Primary Care Provider [phone] Allergies Active Allergy Reactions Criticality Noted Date [...] 03/10/20 23 Active OneTouch Delica Lancets 33G [facility] [place] BS BY SKIN ROUTE 2 TIMES [...] 02/17/20 25 Active Lancets (OneTouch Delica Plus [id number]) [facility] [place] SUGARS TWICE A DAY 100 each [...] [facility] [address] [place] [address] Aarti Koch MD 02/16/2025 Refill [facility] [address] [place] [address] Aarti Koch MD Hyperlipidemia, unspecified 01/05/2025 Refill [facility] [address] [place] [address] Aarti Koch MD Pain 12/25/2024 Refill [facility] [address] [place] [address] Aarti Koch MD from Last 3 Months Social History Tobacco Use Types Packs/Day Years Used Date Smoking Tobacco: Never Assessed Depression Answer Date Recorded Patient Health Questionnaire-9 Score 4 04/03/2023 Housing Stability Answer Date Recorded What is your housing situation today? I have darion sing 08/18/[address] you li [...] 03/01/2021 03/01/2019 Depression Screening 04/03/2024 04/03/2023, 04/03/20 SDOH Screening 04/03/2024 04/03/2023 COVID-19 Vaccine ( season) 2024 Influenza Vaccine (#1) 2024 Diabetes: Hemoglobin A1C 03/30/2025 024, 06/02/2024, 03/01/2024, Additional history exists Diabetes: Urine Protein Screening 06/02/2025 06/02/2024, 10/18/2021, 07/04/2020 Lipid Panel 06/02/2025 06/02/2024, 0605/2023, 10/11/2022, Additional history exists RSV Patients and [...] complication, without long-term current use of insulin ([facility]) LIPID PANEL, STANDARD Routine 06/02/2024 10:33 AM EDT Type 2 diabetes mellitus without complication, without long-term current use of insulin ([facility]) Mixed hyperlipidemia ALBUMIN, RANDOM URINE W/CREATININE Routine 06/02/2024 10:28 AM EDT Type 2 diabetes mellitus without complication, without long-term current use of insulin ([facility]) BI MAMMOGRAM SCREENING BILATERAL Routine 03/01/2019 9:02 AM EDT from Last 3 Months or Most Recently Relevant to Health Maintenance Results * (ABNORMAL) POCT HGB A1C (09/29/2024 9:13 AM EST) Hemoglobin A1C 6.5(A) 4.0 - 6.0 % QC Media Lot # [id number] Lot# Expiration Date [id number] Blood 09/29/2024 9:13 AM EST Aarti Koch MD POINT OF CARE TEST ENTER/EDIT OR DERABLES Final Result * (ABNORMAL) Lipid Panel, Standard (06/02/2024 10:33 AM EDT) Triglycerides 99 <150 mg/dL [facility] Comment:Desirable Triglyceri de: less than 150 mg/dLBorderline High Triglyceride 150-199 mg/dLHigh Triglyceride: 200-499 mg/dLVery High Triglyceride: greater than or equal to 5OO mg/dL Cholesterol 235(H) <200 mg/dL [facility] Comment:Desirable Cholestero l: less than 200 mg/dLBorderline High Cholesterol: 200-239 mg/dLHigh Cholesterol: greater than 239 mg/dL LDL Cholesterol Calculated 150(H) <100 mg/dL [facility] Comment:Desirable LDL: less than 100 mg/dLNear Optimal/Above Optimal LDL: 110- 129 mg/dLBorderline High LDL: 130-159 mg/dLHigh LDL: 160-189 mg/dLVery High LDL: greater than or equal to 190 mg/dL HDL Cholesterol 66 >40 mg/dL [facility] Comment:Desirable HDL: great er than 40 mg/dL Note: This HDL assay may give artificially low results in patients with liver disease. Blood Venous blood specimen / Unknown 06/02/2024 10:33 AM EDT 06/02/2024 10:33 AM EDT Aarti Koch MD LAB BLOOD ORDERABLES Final Resul t Performing Organization Address [facility] de Phone Number [facility] [address] [place] [phone] * (ABNORMAL) Albumin, Random Urine W/Creatinine (06/02/2024 10:28 AM EDT) Creatinine, Urine 168.53 mg/dL [facility] Microalbumin Urine 54.0 mg/L H [facility] Microalbum Creatinine Ratio Ur 32.0(H) <30 ug/mg cr [facility] Comment:Albumin/Creatinine R atio Reference Ranges: Normal: < 30 ug/mg creatinine Microalbuminuria: 30 - 300 ug/mg creatinineClinical Albuminuria: > 300 ug/mg creatinine Urine (Urine, Random) 06/02/2024 10:28 AM EDT 06/02/2024 11:36 AM EDT Aarti Koch MD LAB URINE ORDERABLES Final Resul t Performing Organization Address [facility] de Phone Number [facility] [address] [place] [phone] * 3D DIGITAL RACHEL SCR MAMMO [...] Most Recently Relevant to Health Maintenance Insurance [facility] RETIREMENT OPTIONS (HMO D-SNP) [place] LARA [id number] Advance Directives Documents on File Type Date Recorded Patient Anodizer Expl anation Advance Directives and Livin g Will 11/08/2024 12:47 PM HCP Care Teams Anodizer Relationship Specialty Start Date End Date Aarti Koch MD [address] [place] [phone] PCP - General Family Medicine 10/12/12
--- OUTSIDE RECORDS SUMMARY | 2025-03-17 10:45 | XMS_ITS | Encounter Summary ---
Author Organization [employer] Address [address] [place] [address] 7 [place] [address] Care Team Providers Care Veneer Manufacturer Name Role Phone Aarti Koch MD Primary Care Provider [phone] Reason for Visit * Reason Onset Date Comments Referral 10/09/2023 Encounter Details Date Type Department Care Team ([facility] Contact Info) Description 10/09/2023 Telephone [facility] [address] [place], [place] [phone] Aarti Koch MD [address] [place] [address] Referral Social History Tobacco Use Types Packs/Day [...] t he electric, gas, oil or water [employer] threatened to shut off services in your [...] was advised by provider to see a master deputy sheriff court security due to 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 Any questions, please contact daughter at [phone] documented in this encounter Plan of Treatment Not on file documented as of this encounter Visit Diagnoses Not on filedocumented in this encounter Additional Health Concerns Assessment Noted Time PHQ-9 Depression Total Score: 4 04/03/20 23 9:50 AM EDT documented as of this encounter Care Teams Veneer Manufacturer Relationship Specialty Start Date End Date Aarti Koch MD [address] [place] [address] PCP - General Family Medicine 10/12/12 documented as of this encounter
--- OUTSIDE RECORDS SUMMARY | 2025-03-17 10:45 | XMS_ITS | Encounter Summary ---
Author Organization [employer] Address [address] [place] [address] [address] [place] [address] Care Team Providers Care Managed Care Specialist Name Role Phone Aarti Koch MD Primary Care Provider [phone] Encounter Details Date Type Department Care Team [...] on filedocumented in this encounter Care Teams Managed Care Specialist Relationship Specialty Start Date End Date Aarti Koch MD [address] [place] [phone] PCP - General Family Medicine 10/12/12 documented as of this encounter
--- OUTSIDE RECORDS SUMMARY | 2025-03-17 10:45 | XMS_ITS | Encounter Summary ---
Author Organization [employer] Address [address] [place] [address] Care Team Providers Care Behavior Specialist Name Role Phone Aarti Koch MD Primary Care Provider Encounter Details Date Type Department Care Team (Late Contact Info) Description 08/17/2024 4:48 PM EDT Hospital Encounter TH HISTORIC ENCOUNTERS EASTERN CONVERSION ONLY Akua Wolfe PA [address] [facility] [address] [place] [phone] Social History Tobacco Use Types Packs/Day Years [...] AM EDT Office Visit Orthopedic Surgery - [place] [address] [facility] [address] [place] [phone] David Hermosillo DPM 175 [facility] [address] [place], [place] [phone] documented as of this encounter Visit Diagnoses Not on filedocumented in this encounter Care Teams Behavior Specialist Relationship Specialty Start Date End Date Aarti Koch MD [address] [place] [address] PCP - General 11/14/23 documented as of this encounter
[2025-03-19 09:00] LABS: H Pylori Breath Test Positive (Negative)
== END 2025-03-17 10:05 | disposition home or self-care (01) ==
LOC: HO.LAB 10:04
PROVIDERS: PCP Student in an Organized Health Care Education/Training Program; Visit Provider Internal Medicine
DX: R14.0 Abdominal distension (gaseous) (principal); A04.8 Other specified bacterial intestinal infections
CPT/HCPCS: 83013; 99211

== ENCOUNTER 2025-03-17 10:26 | Outpatient (AMB) | payer OTHER, SELFPAY ==
--- NOTE | 2025-03-17 10:42 | AM.OFFVISNUR ---
Intake Visit Reasons: H PYLORI Allergies Sulfa (Sulfonamide Antibiotics) [SULFA (SULFONAMIDE ANTIBIOTICS)] Allergy (Unknown, Verified 03/17/25 10:11) RASH Nursing Note Patient presents for collection of H Pylori breath test. Patient has been fasting for 1 hour (nothing to eat, drink, no chewing gum or smoking) has not taken any antacid medication for at least 2 weeks and has no allergies to artificial sweeteners.?? Assessment & Plan Assessment & Plan (1) Bloating: Code(s): R14.0 - Abdominal distension (gaseous) Category: Medical (2) H. pylori infection: Code(s): A04.8 - Other specified bacterial intestinal infections Category: Medical (3) Acid reflux: Comment: Smoker Symptoms ongoing for years Reflux precautions reviewed Code(s): K21.9 - Gastro-esophageal reflux disease without esophagitis Category: Medical Plan Patient presents for collection of H Pylori breath test. Patient has been fasting for 1 hour (nothing to eat, drink, no chewing gum or smoking) has not taken any antacid medication for at least 2 weeks and has no allergies to artificial sweeteners.???This test checks for an overgrowth of bacteria in your stomach. We all have bacteria but some may have more than others. It is treatable. if the test comes back negative there is nothing else to do. If the test result is positive we will treat you with 2 antibiotics and a medication to decrease the acid in your stomach (PPI) for 2 weeks. Two weeks after you have completed the treatment we will retest you to make sure the overgrowth has resolved. Patient Instructions: Process for specimen collection and reason for testing was explained to the patient. Specimen collection. Patient instructed to take a deep breath and then exhale into the blue bag, filling it up as much as possible. Patient instructed to drink a mixture of water and the artificial sweetener with a straw. A 15 minute wait period was observed. Patient instructed to take a deep breath and then exhale into the pink bag, filling it up as much as possible.?? Coding Level of Care Code Established Pt Est Pt Level 1 (35539) Patient Type Established Medical Decision Making Straight Forward Diagnoses Bloating R14.0 H. pylori infection A04.8 Acid reflux K21.9
== END 2025-03-17 10:43 | disposition home or self-care (01) ==
LOC: HO.HGI 10:26
PROVIDERS: PCP Student in an Organized Health Care Education/Training Program; Visit Provider Internal Medicine
DX: R14.0 Abdominal distension (gaseous) (principal); A04.8 Other specified bacterial intestinal infections; K21.9 Gastro-esophageal reflux disease without esophagitis

== ENCOUNTER 2025-04-28 11:35 | Outpatient (AMB) | payer OTHER, SELFPAY ==
--- NOTE | 2025-04-28 11:35 | MHC.OFFVIS ---
Intake Visit Reasons: review h pylori treatment Intake Note: Stefanie presents as a telehealth to go over the treatment that is needed for the H pylori. Mechanical Ordnance Assembler Required: No Allergies Sulfa (Sulfonamide Antibiotics) (SULFA (SULFONAMIDE ANTIBIOTICS)) Allergy (Unknown, Verified 04/28/25 11:35) RASH HPI Comments Details: 74 y.o F with PMH of polyps 09/2023, LBBB with assoc cardiomyopathy EF 35-40%, who is here for follow up. Accompanied by daughter Jeanette. Prev [facility] pt. [place] 09/2023 - x7 polyps 04/02: tubular adenoma including piecemeal removal of 18 mm pedunculated polyp in ascending colon. Recommendation for repeat colo in 3-6 months however pt with newly discovered cardiomyopathy. Likely nonischemic based on perfusion scan. Pt follows with [facility]. On GDMT including entresto. (of note pt not sure if taking carvedilol). Plan for repeat echo next month. Pt herself reports main complaint is bloating, post prandial within an hour. Also with nausea. with increased flatulence and burping. Not constipated. Pt s/p CCY. Reports ran out of omeprazole 3-4 months ago and started noticing these sx 2 months ago. 04/28/25: Here for televisit follow up. Was prev cristopher 04/19 but req to reschedule. Reviewed H Pylori positive i.e likely was not treated in past or had treatment failure. Will Rx quad therapy today. In addition, pt has also been seen by Cardiology. Echo with improved EF. [facility] Medical History Primary hypertension Surgical History Hx of colonoscopy Hx of tubal ligation Hx of malignant neoplasm of head and neck Hx of hysterectomy Hx of ankle fusion Family History Father No problems noted. Mother Kidney problem Social History Household Members: None Alcohol intake: current Alcohol intake frequency: holidays/special occasions only Patient Tobacco Use Status: Current everyday Tobacco user Tobacco use type: Cigarette Cigarettes Per Day: 2 Review of Systems Const All systems reviewed & are unremarkable except as noted in HPI and below Physical Exam Vital Signs: phone visit Telehealth Telehealth Telehealth Platform: Telephone Location of provider rendering services: practice address Location of patient: address on file Patient Identification confirmed using: Name, : Yes Telehealth method: voice only Patient verbally consented to treatment: Yes Patient verbally consented to billing insurance company: Yes Patient informed of any privacy concerns related to visit: Yes Minutes spent on Phone/Video with Pt.: 11 Assessment & Plan Assessment & Plan (1) H. pylori infection: Code(s): A04.8 - Other specified bacterial intestinal infections Category: Medical (2) Tubular adenoma: Code(s): D36.9 - Benign neoplasm, unspecified site Category: Medical (3) Cardiomyopathy: Code(s): I42.9 - Cardiomyopathy, unspecified Category: Medical Plan 1 H Pylori Likely with dyspepsia and gastritis 2/2 to this. Quad therapy as reviewed as below. Plan: - 14 days of therapy (should not start any of these until has ALL 4 meds filled) : - Omeprazole 40mg BID - Tetracycline 500mg 4 times a day (avoid sunburn while taking) - Metronidazole 250mg 4 times a day (avoid all alcohol while taking, can take with food to avoid nausea) - Bismuth Subsalicylate 524mg 4 times a day (may turn stools black) - RADHA to be done 2-3 weeks after completing therapy 2 Hx of advanced adenoma Had colo 2022 with piecemeal removal of 18 mm pedunculated adenoma in ascending colon. Pt had previously been getting cardiology work up and mgmt for cardiomyopathy and LBBB. EF improved with neurohormonal therapy. Plan: - COlo to be booked - Miralax prep to be Rxed - Will book this after RADHA reviewed to make sure pt doesnt need egd for H Pylori C&S Follow up 6 weeks Medications: New omeprazole 20 mg PO BID 28 caps 0RF 14 days A04.8 - Other specified bacterial intestinal infections tetracycline 500 mg PO QID 56 caps 0RF 14 days metronidazole 250 mg PO QID 56 tabs 0RF 14 days bismuth subsalicylate 2 tabs PO QID 112 tabs 0RF 14 days Coding Level of Care Code Tele Est Pt Level 4 (14955) Diagnoses H. pylori infection A04.8 Tubular adenoma D36.9 Cardiomyopathy I42.9
--- OUTSIDE RECORDS SUMMARY | 2025-04-28 12:18 | XMS_ITS | Encounter Summary ---
Author Organization [employer] Address [address] [place] [address] 7 [place] [address] Care Team Providers Care Breaker Mechanic Name Role Phone Aarti Koch MD Primary Care Provider [phone] Reason for Visit * Reason Onset Date Comments Referral 10/09/2023 Encounter Details Date Type Department Care Team ([facility] Contact Info) Description 10/09/2023 Telephone [facility] [address] [place], [place] [phone] Aarti Koch MD [address] [place] [address] Referral Social History Tobacco Use Types Packs/Day [...] t he electric, gas, oil or water [employer] threatened to shut off services in your [...] was advised by provider to see a filer and sander due to 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 Any questions, please contact daughter at [phone] documented in this encounter Plan of Treatment Upcoming Encounters Date Type Department Care Team (Late st Contact Info) Description 05/17/2025 10:15 AM EDT Office Visit [facility] [address] [place] [address] Aarti Koch MD [address] [place] [address] documented as of this encounter Visit Diagnoses Not on filedocumented in this encounter Additional Health Concerns Assessment Noted Time PHQ-9 Depression Total Score: 4 04/03/20 23 9:50 AM EDT documented as of this encounter Care Teams Breaker Mechanic Relationship Specialty Start Date End Date Aarti Koch MD [address] [place] [address] PCP - General Family Medicine 10/12/12 documented as of this encounter
== END 2025-04-28 13:33 | disposition home or self-care (01) ==
LOC: HO.HGI 11:35
PROVIDERS: PCP Student in an Organized Health Care Education/Training Program; Visit Provider Internal Medicine
DX: A04.8 Other specified bacterial intestinal infections (principal); D36.9 Benign neoplasm, unspecified site; I42.9 Cardiomyopathy, unspecified
CPT/HCPCS: 99214

== ENCOUNTER 2025-09-07 09:39 | Outpatient (AMB) | payer OTHER, SELFPAY ==
--- OUTSIDE RECORDS SUMMARY | 2024-08-17 15:48 | XMS_ITS | Encounter Summary ---
Author Organization [employer] Address [address] [place] [address] Care Team Providers Care Provider Contracting Consultant Name Role Phone Aarti Koch MD Primary Care Provider [phone] Encounter Details Date Type Department Care Team (Late Contact Info) Description 08/17/2024 4:48 PM EDT Hospital Encounter TH HISTORIC ENCOUNTERS [facility] CONVERSION ONLY Akua Wolfe PA [address] [facility] [address] [place] [address] Social History Tobacco Use Types Packs/Day Years [...] AM EST Office Visit Orthopedic Surgery - [place] [address] [facility] [address] [place] [phone] David Hremosillo DPM 175 [facility] [address] [place] [address] documented as of this encounter Visit Diagnoses Not on filedocumented in this encounter Care Teams Provider Contracting Consultant Relationship Specialty Start Date End Date Aarti Koch MD [address] [place] [phone] PCP - General 11/14/23 documented as of this encounter
[2025-09-07 09:55] VITALS: BP 138/68; PULSE 93; BMI 31.9
--- NOTE | 2025-09-07 09:55 | A.OFFVIS_ITS ---
Vital Signs 09/07/25 09:55 Height 5 ft Weight 163 lb 2.273 oz BMI 31.9 BP 138/68 Blood Pressure Location Lt brachial Position Sitting Pulse 93 Pulse Source Pulse Oximeter Intake Visit Reasons: pre-op colonoscopy 6 mth f/up Allergies Sulfa (Sulfonamide Antibiotics) (SULFA (SULFONAMIDE ANTIBIOTICS)) Allergy (Unknown, Verified 04/28/25 11:35) RASH Medication List - Last Reconciled 09/07/25 by Cuco Castillo MD amitriptyline 10 mg PO BEDTIME betamethasone dipropionate 0.05% 1 appl topical BID bismuth subsalicylate 2 tabs PO QID 14 days calcium carbonate-vitamin D3 500 mg-10 mcg (400 unit) (Calcium 500 With D) 1 tab PO DAILY carvedilol 3.125 mg PO BID clonidine HCl 0.1 mg PO BEDTIME gemfibrozil mg PO DAILY ibuprofen 800 mg PO BID PRN metronidazole 250 mg PO QID 14 days omeprazole 20 mg PO DAILY PRN omeprazole 20 mg PO BID 14 days rosuvastatin 5 mg PO DAILY sacubitril-valsartan 97-103 mg 1 tab PO BID 90 days tetracycline 500 mg PO QID 14 days HPI Comments Details: Stefanie returns for follow-up regarding left bundle-branch block. Noted on EKG in setting of getting colonoscopy. History of hypertension, but no other prior cardiac issues. Since last seen, she states she is feeling fine. No specific symptoms. Per notes, there is a need for another colonoscopy, but patient states she is not aware of it. [facility] Medical History Primary hypertension Surgical History Hx of colonoscopy Hx of tubal ligation Hx of malignant neoplasm of head and neck Hx of hysterectomy Hx of ankle fusion Family History Father No problems noted. Mother Kidney problem Social History Household Members: None Alcohol intake: current Alcohol intake frequency: holidays/special occasions only Patient Tobacco Use Status: Current everyday Tobacco user Tobacco use type: Cigarette Cigarettes Per Day: 2 Review of Systems Const Denies weakness ENT Denies dizziness Card Denies chest pain, Denies chest pain with activity, Denies syncope, Denies rapid heart rate, Denies pedal edema, Denies edema, Denies leg edema, Denies lightheadedness, Denies palpitations, Denies dyspnea, Denies dyspnea on exertion and Denies orthopnea Resp Denies cough, Denies dyspnea and Denies dyspnea on exertion GI Denies hematochezia and Denies change in stool character Musc Denies abnormal gait, Denies muscle cramps, Denies muscle weakness, Denies numbness, Denies radiating pain into limb and Denies tingling Neuro Denies abnormal gait, Denies dizziness, Denies syncope, Denies numbness, Denies tingling and Denies weakness Endo Denies palpitations Physical Exam Vital Signs: Last Vital Signs Pulse 93 09/07/25 09:55 BP 138/68 09/07/25 09:55 BMI result Body Mass Index 31.9 Const General: comfortable and no acute distress Orientation/consciousness: patient oriented x3 HEENT Other: Unremarkable Head: Yes normal to inspection Neck Neck: Yes normal visual inspection Chest Chest palpation & inspection: normal inspection of the chest Resp Auscultation: clear to auscultation bilaterally Cardio Palpation: normal PMI Heart sounds: S1 normal heart sound present, S2 normal heart sound present, no gallops, no murmurs and no rubs GI Palpation (GI): Soft to palpation Back/Spine/Pelvis Other: unremarkable Skin General skin exam: no rashes or lesions noted Neuro General: patient oriented x3 Extrem General: Yes normal to inspection Psych Mental Status: mental status grossly normal Assessment & Plan Assessment & Plan (1) LBBB (left bundle branch block): Code(s): I44.7 - Left bundle-branch block, unspecified Category: Medical (2) Cardiomyopathy: Code(s): I42.9 - Cardiomyopathy, unspecified Category: Medical (3) Primary hypertension: Code(s): I10 - Essential (primary) hypertension Category: Medical (4) Preoperative cardiovascular examination: Code(s): Z01.810 - Encounter for preprocedural cardiovascular examination Category: Medical Plan Initial Echocardiogram with LVEF of 35-40%. Moderate septal hypertrophy. Otherwise unremarkable. In the repeat echocardiogram, LVEF improved to 50-55%. However, not clear how much of variation is due to left bundle-branch block itself. Myocardial perfusion imaging study shows probably normal perfusion. Overall, left bundle-branch block with associated cardiomyopathy, but no overt heart failure. She is on a small dose of carvedilol with Entresto. No need for diuretics at this time. With regard to blood pressure, better than before but still not ideal. She states that home blood pressures are even lower and closely with the 120s. No changes made today. Check labs including BNP/NT pro BNP. With regard to colonoscopy, no contraindications to proceed, but she states she was not aware of the procedure and may choose not to proceed. If indeed she gets the procedure, do a pre-procedure EKG. Discussion Notes During the visit, I discussed with the patient the importance of managing her hypertension and cardiomyopathy through regular monitoring and adherence to prescribed medications. We also talked about the recommendation for a colonoscopy, emphasizing the need to have a detailed discussion with her senior bi developer. Patient was informed and verbally consented to the use of an ambient scribe for clinic note documentation during this visit. Orders: Orders NT Pro B Type Natriuretic Pept Today I42.9 - Cardiomyopathy, unspecified, I50.9 - Heart failure, unspecified Basic Metabolic Panel Today I42.9 - Cardiomyopathy, unspecified, I50.9 - Heart failure, unspecified Patient Instructions: - Continue monitoring blood pressure at home and take medications as prescribed. - Maintain lifestyle changes to help control blood pressure. Coding Level of Care Code Est Pt Level 4 (86937) Complex EM visit Add On G2211 Diagnoses LBBB (left bundle branch block) I44.7 Cardiomyopathy I42.9 Primary hypertension I10 Preoperative cardiovascular examination Z01.810
--- OUTSIDE RECORDS SUMMARY | 2025-09-07 10:56 | XMS_ITS | Clinical Summary ---
Author Organization [facility] Address 175 [place] [address] Phone Care Team Providers Care Relationship Manager Name Role Phone Aarti Koch MD Primary Care Provider [phone] Allergies Active Allergy Reactions Criticality Noted Date [...] Encounters Date Type Department Care Team Description 07/11/2025 9:45 AM EDT Office Visit Orthopedic Surgery - [address] [address] David Hermosillo, DPM Follow-up exam (Primary Dx); Arthritis of foot, left; Dermatophytosis of nail; Diabetic mononeuropathy simplex ([facility] V24, [facility] V28); Ingrowing nail; Pain in toe of right foot; Pain in toe of left foot from Last 3 Months Surgical History Surgery Date Site/Laterality Comments COLONOSCOPY PROCEDURE: HISTORICAL COLONOSCOPY ANKLE SURGERY PROCEDURE: HISTORICAL ANKLE SURGERY Medical History Medical History Date Comments Diabetes mellitus type 2, co ntrolled, with complications (CMS/HCC V24, [facility] V28) DX:Diabetes mellitus type 2, controlled, with complications ([facility]) Essential hypertension DX:Essent ial hypertension Hyperlipidemia DX:Hyperlipidemi [...] Oxygen Concentration - - Weight 68 kg (149 lb 14.6 oz) 05/24/2025 9:33 AM EDT Height 152.4 cm (5') 05/24/2025 9:33 AM EDT Body Mass Index 29.28 05/24/2025 9:33 AM EDT Plan of Treatment Upcoming Encounters Date Type Department Care Team (Late st Contact Info) Description 10/10/2025 9:00 AM EST Office Visit Orthopedic Surgery - [place] [address] [address] David Hermosillo, DPM [address] [address] Health Maintenance Due Date Last Done Comments Colorectal Cancer Screening: Colonoscopy 1952 Diabetes: Annual Foot Exam 1962 Diabetes: Annual Retina Eye Exam 1962 Pneumococcal Vaccine: 50+ Years (1 of 2 - PCV) 1971 RSV Immunization Adult Patients (1 - Risk 50-74 years 1-dose series) 2002 Zoster Vaccines (1 of 2) 2002 Breast Cancer Screening 03/01/2021 03/01/2019 Falls Risk Assessment 05/21/2024 Hepatitis C Screening 05/21/2024 Medicare Annual Wellness Visit 05/21/2024 Osteoporosis Screening (Bone Density Screening) 05/21/2024 Social Influencers of Health Screening 05/21/2024 Diabetes: Annual Urine Albumin-Creatinine Ratio (uACR) 08/09/2024 Depression Screening 10/27/2024 COVID-19 Vaccine ( - 2024-2 6 season) 2025 Influenza Vaccine (#1) 2025 Diabetes: Annual GFR (Glomerular Filtration Rate) 09/15/2025 09/15/2024, 06/02/2024 Hypertension/CHF/CAD Annual BMP Blood Test 09/15/2025 09/15/2024, 06/02/2024 Diabetes: Blood Sugar Contro l Test (HGBA1C) 11/17/2025 05/17/2025, 09/29/2024, 06/02/2024 DTaP,Tdap,and Td Vaccines (2 - Td [...] Name Priority Date/Time Associated Diagnosis Comments XR FOOT 3+ VIEWS LEFT Routine 07/11/2025 10:17 AM EDT Follow-up exam from Last 3 Months Results * XR Foot 3+ Views Left (07/11/2025 10:17 AM EDT) Anatomical Region Laterality Modality Lower Extremities, Foot Left Computed Radiography Narrative 07/11/2025 12:43 PM EDT Left foot 3 views No fracture noted 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 noted as well as subtalar joint prior hardware intact us David Hermosillo DPSaroj IMG XR PROCEDURES Final R esult from Last 3 Months Insurance [address] [place] [address] [facility] MEDICARE Member Subscriber Plan / Payer (Ef fective 2017-Present) Name:Stefanie Montanez Relation to Subscriber:Self Name:Stefanie Montanez Payer ID:[id number] Group ID:[id number] Type:Not on file Address: [place] [address] [place] [id number] Care Teams Relationship Manager Relationship Specialty Start Date End Date Aarti Koch MD [address] [place] [address] PCP - General 11/14/23
--- OUTSIDE RECORDS SUMMARY | 2025-09-07 10:56 | XMS_ITS | Encounter Summary ---
Author Organization [employer] Address [address] [place] [address] [address] [place] [address] Care Team Providers Care Broom Maker Name Role Phone Aarti Koch MD Primary Care Provider [phone] Sebastian Jackman MD Primary Care Prov ider Encounter Details Date Type Department Care Team ([facility] Contact Info) Description 11/05/2024 Orders Only [facility] [address] [place] [address] Provider, MD Dilma Social History Tobacco Use [...] documented as of this encounter Care Teams Broom Maker Relationship Specialty Start Date End Date Aarti Koch MD [address] [place] [address] PCP - General Family Medicine 10/12/12 08/24/25 Sebastian Jackman MD [address] [place] [address] PCP - General Internal Medicine 08/25/25 documented as of this encounter
--- OUTSIDE RECORDS SUMMARY | 2025-09-07 10:56 | XMS_ITS | Encounter Summary ---
Author Organization [facility] Address [address] [place] [address] Care Team Providers Care Crozer Operator Name Role Phone Aarti Koch MD Primary Care Provider [phone] Sebastian Jackman MD Primary Care Prov ider Encounter Details Date Type Department Care Team (Latest Contact Info) Description 07/13/2019 Abstract [facility] CONVERSION[facility] Dental, Provider, DDS Social History Tobacco [...] on filedocumented in this encounter Care Teams Crozer Operator Relationship Specialty Start Date End Date Aarti Koch MD [address] [place] [address] PCP - General Family Medicine 10/12/12 08/24/25 Sebastian Jackman MD [address] [place] [address] PCP - General Internal Medicine 08/25/25 documented as of this encounter
--- OUTSIDE RECORDS SUMMARY | 2025-09-07 10:56 | XMS_ITS | Encounter Summary ---
Author Organization [employer] [facility] Address [address] [place] [address] 7 [place] [address] Care Team Providers Care Writer Technical Publications Name Role Phone Aarti Koch MD Primary Care Provider [phone] Sebastian Jackman MD Primary Care Prov ider Encounter Details Date Type Department Care Team ([facility] Contact Info) Description 12/11/2023 Telephone [facility] [address] [place], [place] [phone] Aarti Koch MD [address] [place] [address] Social History Tobacco Use Types Packs/Day Years [...] - 12/11/2023 2:00 PM EST Tc from [facility] with [facility] cardiology requesting last OV notes to be faxed to [phone]. [facility] office received referral but no OV notes. documented in this encounter Plan of Treatment Not on file documented as of this encounter Visit Diagnoses Not on filedocumented in this encounter Additional Health Concerns Assessment Noted Time PHQ-9 Depression Total Score: 4 04/03/20 23 9:50 AM EDT documented as of this encounter Care Teams Writer Technical Publications Relationship Specialty Start Date End Date Aarti Koch MD [address] [place] [address] PCP - General Family Medicine 10/12/12 08/24/25 Sebastian Jackman MD [address] [place] [address] PCP - General Internal Medicine 08/25/25 documented as of this encounter
--- OUTSIDE RECORDS SUMMARY | 2025-09-07 10:56 | XMS_ITS | Clinical Summary ---
Author Organization [employer] Address [address] [place] [address] [address] [place] [address] Care Team Providers Care Stained Glass Installer Name Role Phone Sebastian Jackman MD Primary Care Prov ider Allergies Active Allergy Reactions Criticality Noted Date [...] day to the affected area(s) 9 Active ketotifen (Zaditor) 0.025 % ophthalmic solution instill 1 drop by ophthalmic route 2 times every day into affected eye(s) 1 Active lidocaine (Xylocaine) 2 % solution take 15 milliliter by oral route every 6 hours and swish and spit out 0 Active FreeStyle lancets CHECK BS BY SKIN ROUTE 2 TIMES EVERY DAY 100 each 11 3 Active OneTouch Delica Lancets 33G [...] by mouth. Take with food. 4 Active Calcium Carb-Cholecalcifer ol 500-10 MG-MCG tablet Take 500 mg by mouth Once per day. 30 tablet 11 4 025 Active rosuvastatin (Crestor) 5 MG tabletIndications: Hyperlipidemia, unspecified TAKE 1 TABLET BY MOUTH EVERY DAY 90 tablet 3 5 Active Lancets (OneTouch Delica Plus L[place]au60M) [facility] CHECK SUGARS TWICE A DAY 100 each 11 5 Active OneTouch Ultra test strip TEST BLOOD SUGAR TWICE A DAY 100 strip 11 5 Active ibuprofen 800 MG tabletIndications: Pain TAKE 1 TABLET BY MOUTH TWICE A DAY WITH FOOD 60 tablet 3 5 Active omeprazole (PriLOSEC) [address] capsule Take 20 mg by mouth Once per day. 5 Active Entresto 24-26 MG tablet Take 1 tablet by mouth 2 times daily. 4 Active ondansetron (Zofran) 4 MG tablet 4 mg. 1 Active hydrALAZINE (Apresoline) 25 MG tablet Take 1 tablet (25 mg) by mouth 3 times daily. 90 tablet 11 5 026 Active amitriptyline (Elavil) 10 MG tablet TAKE 1 TABLET BY MOUTH AT BEDTIME 90 tablet 1 5 Active gemfibrozil (Lopid) 600 MG tabletIndications: Hyperlipidemia, unspecified TAKE 1 TABLET BY MOUTH EVERY DAY 90 tablet 1 5 Active Active Problems Problem Noted Date [...] Encounters Date Type Department Care Team Description 08/07/2025 Refill [facility] [address] [place] [address] Aarti Koch MD Hyperlipidemia, unspecified 07/13/2025 Orders Only [facility] [address] [place], [place] [phone] Provider, MD Dilma from Last 3 Months Immunizations Immunization Administration Dates Next Due Tdap 11/06/2018 Social History Tobacco Use Types Packs/Day Years [...] Sign Reading Time Taken Comments Blood Pressure 150/88 06/03/2025 10:20 AM EDT Pulse 76 06/03/2025 10:19 AM EDT Temperature 36.1 C (97 F) 05/17/2025 10:23 AM EDT Respiratory Rate 18 05/17/2025 10:23 AM EDT Oxygen Saturation 97% 05/17/2025 10:23 AM EDT Inhaled Oxygen Concentration - - Weight 74.6 kg (164 lb 6.4 oz) 06/03/2025 10:19 AM EDT Height 154.9 cm (5' 1 ) 05/17/2025 10:23 AM EDT Body Mass Index 31.06 05/17/2025 10:23 AM EDT Plan of Treatment Health Maintenance Due Date [...] 04/03/2024 04/03/2023, 04/03/20 SDOH Screening 04/03/2024 04/03/2023 Diabetes: Urine Protein Screening 06/02/2025 06/02/2024, 10/18/2021, 07/04/2020 Lipid Panel 06/02/2025 06/02/2024, 06/0 05/2023, 10/11/2022, Additional history exists COVID-19 Vaccine ( season) 2025 Influenza Vaccine (#1) 2025 Diabetes: Hemoglobin A1C 11/17/2025 025, 09/29/2024, 06/02/2024, Additional history exists RSV Patients and Patients [...] Priority Date/Time Associated Diagnosis Comments XR FOOT 3 OR MORE VIEWS LEFT Routine 07/11/2025 4:07 PM EDT POCT GLYCATED HEMOGLOBIN, TOTAL Routine 05/17/2025 10:26 AM EDT Type 2 diabetes mellitus without complication, without long-term current use of insulin ([facility]) LIPID PANEL, STANDARD Routine 06/02/2024 10:33 AM EDT Type 2 diabetes mellitus without complication, without long-term current use of insulin (CMS/HCC) Mixed hyperlipidemia ALBUMIN, RANDOM URINE W/CREATININE Routine 06/02/2024 10:28 AM EDT Type 2 diabetes mellitus without complication, without long-term current use of insulin (CMS/[facility]) BI MAMMOGRAM SCREENING BILATERAL Routine 03/01/2019 9:02 AM EDT from Last 3 Months or Most Recently Relevant to Health Maintenance Results * XR FOOT 3 OR MORE VIEWS LEFT (07/11/2025 4:07 PM EDT) Anatomical Region Laterality Modality Radiographic Martha ging Historical Provider IMLeisa XR PROCEDURES Final R esult * (ABNORMAL) POCT A1C (05/17/2025 10:26 AM EDT) Hemoglobin A1C 6.2(A) 4.0 - 5.7 % QC Media Lot # Comment:[id number] Lot# Expiration Date Comment:01/04/2027 Blood 05/17/2025 10:2 6 AM EDT Aarti Koch MD POINT OF CARE TEST ENTER/EDIT OR DERABLES Final Result * (ABNORMAL) Lipid Panel, Standard (06/02/2024 10:33 AM EDT) Triglycerides 99 <150 mg/dL [facility] Comment:Desirable Triglyceri de: less than 150 mg/dLBorderline High Triglyceride 150-199 mg/dLHigh Triglyceride: 200-499 mg/dLVery High Triglyceride: greater than or equal to 5OO mg/dL Cholesterol 235(H) <200 mg/dL [facility] Comment:Desirable Cholestero l: less than 200 mg/dLBorderline High Cholesterol: 200-239 mg/dLHigh Cholesterol: greater than 239 mg/dL LDL Cholesterol Calculated 150(H) <100 mg/dL [facility] Comment:Desirable LDL: less than 100 mg/dLNear Optimal/Above Optimal LDL: 110- 129 mg/dLBorderline High LDL: 130-159 mg/dLHigh LDL: 160-189 mg/dLVery High LDL: greater than or equal to 190 mg/dL HDL Cholesterol 66 >40 mg/dL [facility] Comment:Desirable HDL: great er than 40 mg/dL Note: This HDL assay may give artificially low results in patients with liver disease. Blood Venous blood specimen / Unknown 06/02/2024 10:33 AM EDT 06/02/2024 10:33 AM EDT Aarti Koch MD LAB BLOOD ORDERABLES Final Resul t Performing Organization Address [facility] de Phone Number [facility] [address] [place] [phone] * (ABNORMAL) Albumin, Random Urine W/Creatinine (06/02/2024 10:28 AM EDT) Creatinine, Urine 168.53 mg/dL [facility] Microalbumin Urine 54.0 mg/L [facility] Microalbum Creatinine Ratio Ur 32.0(H) <30 ug/mg cr [facility] Comment:Albumin/Creatinine R atio Reference Ranges: Normal: < 30 ug/mg creatinine Microalbuminuria: 30 - 300 ug/mg creatinineClinical Albuminuria: > 300 ug/mg creatinine Urine (Urine, Random) 06/02/2024 10:28 AM EDT 06/02/2024 11:36 AM EDT Aarti Koch MD LAB URINE ORDERABLES Final Resul t Performing Organization Address [facility] Co de Phone Number [facility] [address] [place] [phone] * 3D DIGITAL RACHEL SCR MAMMO [...] Recently Relevant to Health Maintenance Insurance [facility] [employer] OPTIONS (O D-SNP) [place] [id number] Advance Directives Documents on File Type Date Recorded Patient Director Personal Expl anation Advance Directives and Livin g Will 11/08/2024 12:47 PM HCP Care Teams Stained Glass Installer Relationship Specialty Start Date End Date Sebastian Jackman MD [address] [place] [address] PCP - General Internal Medicine 08/25/25
--- OUTSIDE RECORDS SUMMARY | 2025-09-07 10:56 | XMS_ITS | Encounter Summary ---
Author Organization [employer] Address [address] [place] [address] [address] [place] [address] Care Team Providers Care Tree Expert Name Role Phone Aarti Koch MD Primary Care Provider [phone] Sebastian Jackman MD Primary Care Prov ider Encounter Details Date Type Department Care Team ([facility] Contact Info) Description 05/24/2025 Orders Only [facility] [address] [place] [address] Provider, MD Dilma Social History Tobacco Use [...] FOOT 3 OR MORE VIEWS LEFT Routine 05/24/2025 1:47 PM EDT documented in this encounter Results * XR FOOT 3 OR MORE VIEWS LEFT (05/24/2025 1:47 PM EDT) Anatomical Region Laterality Modality Radiographic Martha ging us Historical Provider MD LINDSEY XR PROCEDURES Final R esult documented in this encounter Visit Diagnoses Not on filedocumented in this encounter Additional Health Concerns Assessment Noted Time PHQ-9 Depression Total Score: 4 04/03/20 23 9:50 AM EDT documented as of this encounter Care Teams Tree Expert Relationship Specialty Start Date End Date Aarti Koch MD [address] [place] [address] PCP - General Family Medicine 10/12/12 08/24/25 Sebastian Jackman MD [address] [place] [address] PCP - General Internal Medicine 08/25/25 documented as of this encounter
--- OUTSIDE RECORDS SUMMARY | 2025-09-07 10:56 | XMS_ITS | Encounter Summary ---
Author Organization [employer] Address [address] [place] [address] [address] [place] [address] Care Team Providers Care Retoucher Name Role Phone Aarti Koch MD Primary Care Provider [phone] Sebastian Jackman MD Primary Care Prov ider Reason for Visit * Reason Onset Date Comments Referral 10/09/2023 Encounter Details Date Type Department Care Team ([facility] Contact Info) Description 10/09/2023 Telephone [facility] [address] [place], [place] [phone] Aarti Koch MD [address] [place] [address] Referral Social History Tobacco Use Types Packs/Day [...] was advised by provider to see a manager interventional due to 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 Any questions, please contact daughter at [phone] documented in this encounter Plan of Treatment Not on file documented as of this encounter Visit Diagnoses Not on filedocumented in this encounter Additional Health Concerns Assessment Noted Time PHQ-9 Depression Total Score: 4 04/03/20 23 9:50 AM EDT documented as of this encounter Care Teams Retoucher Relationship Specialty Start Date End Date Aarti Koch MD [address] [place] [address] PCP - General Family Medicine 10/12/12 08/24/25 Sebastian Jackman MD [address] [place] [address] PCP - General Internal Medicine 08/25/25 documented as of this encounter
--- OUTSIDE RECORDS SUMMARY | 2025-09-07 10:56 | XMS_ITS | Encounter Summary ---
Author Organization [employer] Address [address] [place] [address] [address] [place] [address] Care Team Providers Care Manager Multicultural Name Role Phone Aarti Koch MD Primary Care Provider [phone] Sebastian Jackman MD Primary Care Prov ider Encounter Details Date Type Department Care Team ([facility] Contact Info) Description 07/13/2025 Orders Only [facility] [address] [place] [address] Provider, MD Dilma Social History Tobacco Use [...] VIEWS LEFT Routine 07/11/2025 4:07 PM EDT documented in this encounter Results [...] documented as of this encounter Care Teams Manager Multicultural Relationship Specialty Start Date End Date Aarti Koch MD [address] [place] [address] PCP - General Family Medicine 10/12/12 08/24/25 Sebastian Jackman MD [address] [place] [address] PCP - General Internal Medicine 08/25/25 documented as of this encounter
--- OUTSIDE RECORDS SUMMARY | 2025-09-07 10:56 | XMS_ITS | Encounter Summary ---
Author Organization [employer] Address [address] [place] [address] Care Team Providers Care Estimating Manager Name Role Phone Aarti Koch MD Primary Care Provider [phone] Sebastian Jackman MD Primary Care Prov ider Encounter Details Date Type Department Care Team ([facility] st Contact Info) Description 10/18/2022 Orders Only [facility] [address] [place] [address] Aarti Koch MD [address] [place], [place] [phone] Social History Tobacco Use Types Packs/Day Years [...] on filedocumented in this encounter Care Teams Estimating Manager Relationship Specialty Start Date End Date Aarti Koch MD [address] [place] [address] PCP - General Family Medicine 10/12/12 08/24/25 Sebastian Jackman MD [address] [place], [place] [phone] PCP - General Internal Medicine 08/25/25 documented as of this encounter
== END 2025-09-07 10:07 | disposition home or self-care (01) ==
LOC: HO.HCS 09:39
PROVIDERS: PCP Student in an Organized Health Care Education/Training Program; Visit Provider Internal Medicine
DX: I44.7 Left bundle-branch block, unspecified (principal); I42.9 Cardiomyopathy, unspecified; I10 Essential (primary) hypertension; Z01.810 Encounter for preprocedural cardiovascular examination
CPT/HCPCS: 99214; G2211

== ENCOUNTER 2025-09-07 09:39 | Outpatient (REF) | payer OTHER, SELFPAY ==
[2025-09-07 11:56] LABS: Anion Gap 10 (12-20); Blood Urea Nitrogen 11 mg/dL (9-16); Calcium 8.8 mg/dL (8.4-10.2); Carbon Dioxide 23 mmol/L (22-29); Chloride 111 mmol/L (96-108); Estimated Glomerular Filt Rate > 60; Potassium 4.1 mmol/L (3.3-5.1); Sodium 140 mmol/L (135-145)
[2025-09-07 12:06] LABS: NT Pro B Type Natriuretic Pept 740.6 pg/mL (<300)
== END 2025-09-07 09:40 | disposition home or self-care (01) ==
LOC: HO.LAB 09:39
PROVIDERS: PCP Student in an Organized Health Care Education/Training Program; Visit Provider Internal Medicine
DX: Z01.810 Encounter for preprocedural cardiovascular examination (principal); I44.7 Left bundle-branch block, unspecified; I42.9 Cardiomyopathy, unspecified; I10 Essential (primary) hypertension; Z79.899 Other long term (current) drug therapy
CPT/HCPCS: 36415; 80048; 83880; 99212

== ENCOUNTER 2025-09-21 10:48 | Outpatient (AMB) | payer OTHER, SELFPAY ==
--- OUTSIDE RECORDS SUMMARY | 2024-08-17 15:48 | XMS_ITS | Encounter Summary ---
Author Organization [employer] Address [address] [place] [address] Care Team Providers Care Sash Finisher Name Role Phone Aarti Koch MD Primary Care Provider [phone] Encounter Details Date Type Department Care Team (Late Contact Info) Description 08/17/2024 4:48 PM EDT Hospital Encounter TH HISTORIC ENCOUNTERS [facility] CONVERSION ONLY Akua Wolfe PA [address] [facility] [address] [place] [phone] Social History Tobacco Use Types Packs/Day Years Used Date Smoking Tobacco: Never Assessed Comments Unknown Sex and Gender Information Value Date Recorded Sex Assigned at Not on file Legal Sex Female 11:06 AM EDT Gender Identity Not on file Sexual Orientation Not on file documented as of this encounter Plan of Treatment Upcoming Encounters Date Type Department Care Team (Late Contact Info) Description 10/10/2025 9:00 AM EST Office Visit Orthopedic Surgery - [place] [address] [facility] [address] [place] [phone] David Hermosillo DPM 175 [facility] [address] [place] [address] documented as of this encounter Visit Diagnoses Not on filedocumented in this encounter Care Teams Sash Finisher Relationship Specialty Start Date End Date Aarti Koch MD [address] [place] [phone] PCP - General 11/14/23 documented as of this encounter
--- NOTE | 2025-09-21 11:03 | MHC.OFFVIS ---
Vital Signs 09/21/25 11:04 Height 5 ft Weight 162 lb BMI 31.6 BP 173/69 H Blood Pressure Location Lt brachial Position Sitting Pulse 91 Intake Visit Reasons: f/u polyps Intake Note: Patient follow up for hx polyps/Pre Colonoscopy screening. Patient denies any GI issues. Retouching Operator Required: No Accompanied by: Daughter Allergies Sulfa (Sulfonamide Antibiotics) (SULFA (SULFONAMIDE ANTIBIOTICS)) Allergy (Unknown, Verified 09/21/25 11:03) RASH HPI Comments Details: 74 y.o F with PMH of polyps 09/2023, LBBB with assoc cardiomyopathy EF 35-40%, who is here for follow up. Accompanied by daughter Jeanette. Prev [facility] pt. [place] 09/2023 - x7 polyps 04/02: tubular adenoma including piecemeal removal of 18 mm pedunculated polyp in ascending colon. Recommendation for repeat colo in 3-6 months however pt with newly discovered cardiomyopathy. Likely nonischemic based on perfusion scan. Pt follows with [facility] Cardiology. On GDMT including entresto. (of note pt not sure if taking carvedilol). Plan for repeat echo next month. Pt herself reports main complaint is bloating, post prandial within an hour. Also with nausea. with increased flatulence and burping. Not constipated. Pt s/p CCY. Reports ran out of omeprazole 3-4 months ago and started noticing these sx 2 months ago. 04/28/25: Here for televisit follow up. Was prev cristopher 04/19 but req to reschedule. Reviewed H Pylori positive i.e likely was not treated in past or had treatment failure. Will Rx quad therapy today. In addition, pt has also been seen by Cardiology. Echo with improved EF. 09/21/25: The patient is presenting for a follow-up visit to discuss scheduling a colonoscopy and post-treatment management for Helicobacter pylori. The patient last had a colonoscopy in 2022, during which a polyp was not completely removed, indicating a need for a repeat procedure within a year. Consequently, the patient is overdue for a surveillance colonoscopy. Due to a history of heart issues, cardiac clearance was required before scheduling the procedure. Notes reviewed, EF has improved. She is cleared for the procedure with a recommendation for a pre-procedure EKG. The patient completed a full course of treatment for H. pylori last month and reports feeling better. The patient has discontinued ibuprofen and now takes Tylenol as needed. The patient continues to take omeprazole and therefore RAHDA can not be done today. She still continues to smoke attributing current use to stress and anxiety. --- Pt was informed and consented to the use of ambient scribe for this encounter. --- [facility] Medical History Primary hypertension Surgical History Hx of colonoscopy Hx of tubal ligation Hx of malignant neoplasm of head and neck Hx of hysterectomy Hx of ankle fusion Family History Father No problems noted. Mother Kidney problem Social History Household Members: None Alcohol intake: current Alcohol intake frequency: holidays/special occasions only Patient Tobacco Use Status: Current everyday Tobacco user Tobacco use type: Cigarette Cigarettes Per Day: 2 Review of Systems Const All systems reviewed & are unremarkable except as noted in HPI and below Physical Exam Exam Exam: No apparent distress Nonicteric Abdomen soft, nondistended Alert and oriented x3, normal gait Vital Signs: Last Vital Signs Pulse 91 09/21/25 11:04 BP 173/69 H 09/21/25 11:04 BMI result Body Mass Index 31.6 Assessment & Plan Assessment & Plan (1) Tubular adenoma: Code(s): D36.9 - Benign neoplasm, unspecified site Category: Medical (2) LBBB (left bundle branch block): Code(s): I44.7 - Left bundle-branch block, unspecified Category: Medical (3) H. pylori infection: Code(s): A04.8 - Other specified bacterial intestinal infections Category: Medical Plan 1. Surveillance Colonoscopy - The patient is overdue for a repeat colonoscopy due to an incompletely resected polyp in 2022. - The patient has received cardiac clearance, with a recommendation for a pre-procedure EKG. - Order placed to book colo. Pt requests this to be scheduled after the holidays. - A prescription for MiraLax prep will be sent to the patient's pharmacy, and prep instructions have been reviewed. 2. Helicobacter Pylori Infection - The patient has completed treatment and reports symptomatic improvement. - To confirm eradication, a stool test will be ordered instead of a breath test at the patient's request. - She was advised to stop taking omeprazole for 14 days before collecting the sample. Follow up after colo. Orders: Orders H pylori Ag Stool 14 Days A04.8 - Other specified bacterial intestinal infections Medications: New polyethylene glycol 3350 (Miralax) mix in 64 oz of gatorade for colonoscopy prep 238 grams PO BID 238 grams 0RF Discontinued omeprazole Discontinued Reason: Patient Completed Course 20 mg PO BID 14 days 28 caps 0RF A04.8 - Other specified bacterial intestinal infections metronidazole Discontinued Reason: Patient Completed Course 250 mg PO QID 14 days 56 tabs 0RF bismuth subsalicylate Discontinued Reason: Patient Completed Course 2 tabs PO QID 14 days 112 tabs 0RF tetracycline Discontinued Reason: Patient Completed Course 500 mg PO QID 14 days 56 caps 0RF Patient Instructions: Please get stool testing done after Oct 05. Please make sure to not take any omeprazole or pepcid for 2 weeks prior to getting this test done. Colonoscopy will be booked in the next few weeks Coding Level of Care Code Est Pt Level 4 (12171) Diagnoses Tubular adenoma D36.9 LBBB (left bundle branch block) I44.7 H. pylori infection A04.8
[2025-09-21 11:04] VITALS: BP 173/69; PULSE 91; BMI 31.6
--- OUTSIDE RECORDS SUMMARY | 2025-09-21 13:11 | XMS_ITS | Encounter Summary ---
Author Organization [employer] Address [address] [place] [address] 7 [place] [address] Care Team Providers Care Apartment Maintenance Supervisor Name Role Phone Aarti Koch MD Primary Care Provider Sebastian Jackman MD Primary Care Prov ider Encounter Details Date Type Department Care Team ([facility] Contact Info) Description 12/11/2023 Telephone [facility] MED & PEDS [address] [place], [place] [phone] Aarti Koch MD [address] [place] [address] Social History Tobacco Use Types Packs/Day Years [...] - 12/11/2023 2:00 PM EST Tc from [facility] [place] requesting last OV notes to be faxed to [phone]. [facility] office received referral but no OV notes. documented in this encounter Plan of Treatment Not on file documented as of this encounter Visit Diagnoses Not on filedocumented in this encounter Additional Health Concerns Assessment Noted Time PHQ-9 Depression Total Score: 4 04/03/20 23 9:50 AM EDT documented as of this encounter Care Teams Apartment Maintenance Supervisor Relationship Specialty Start Date End Date Aarti Koch MD [address] [place] [address] PCP - General Family Medicine 10/12/12 08/24/25 Sebastian Jackman MD [address] [place] [address] PCP - General Internal Medicine 08/25/25 documented as of this encounter
--- OUTSIDE RECORDS SUMMARY | 2025-09-21 13:11 | XMS_ITS | Encounter Summary ---
Author Organization [employer] [facility] Address [address] [place] [address] Care Team Providers Care Urban Planner Name Role Phone Aarti Koch MD Primary Care Provider [phone] Sebastian Jackman MD Primary Care Prov ider Encounter Details Date Type Department Care Team (Latest Contact Info) Description 07/13/2019 Abstract [facility] CONVERSIONS Dental, Provider, DDS Social History Tobacco [...] on filedocumented in this encounter Care Teams Urban Planner Relationship Specialty Start Date End Date Aarti Koch MD [address] [place] [address] PCP - General Family Medicine 10/12/12 08/24/25 Sebastian Jackman MD [address] [place] [address] PCP - General Internal Medicine 08/25/25 documented as of this encounter
--- OUTSIDE RECORDS SUMMARY | 2025-09-21 13:11 | XMS_ITS | Encounter Summary ---
Author Organization [employer] Address [address] [place] [address] 7 [place] [address] Care Team Providers Care Fuel Cell Designer Name Role Phone Aarti Koch MD Primary Care Provider Sebastian Jackman MD Primary Care Prov ider Encounter Details Date Type Department Care Team ([facility] Contact Info) Description 11/05/2024 Orders Only [facility] [address] [place] [address] Provider, MD Dilma Social History Tobacco Use [...] documented as of this encounter Care Teams Fuel Cell Designer Relationship Specialty Start Date End Date Aarti Koch MD [address] [place] [address] PCP - General Family Medicine 10/12/12 08/24/25 Sebastian Jackman MD [address] [place] [address] PCP - General Internal Medicine 08/25/25 documented as of this encounter
--- OUTSIDE RECORDS SUMMARY | 2025-09-21 13:11 | XMS_ITS | Encounter Summary ---
Author Organization [employer] Address [address] [place] [address] 7 [place] [address] Care Team Providers Care Baggage Checker Name Role Phone Aarti Koch MD Primary Care Provider [phone] Sebastian Jackman MD Primary Care Prov ider Encounter Details Date Type Department Care Team ([facility] Contact Info) Description 07/13/2025 Orders Only [facility] [address] [place] [address] Provider, MD Dilma Social History Tobacco Use [...] documented as of this encounter Care Teams Baggage Checker Relationship Specialty Start Date End Date Aarti Koch MD [address] [place] [address] PCP - General Family Medicine 10/12/12 08/24/25 Sebastian Jackman MD [address] [place] [address] PCP - General Internal Medicine 08/25/25 documented as of this encounter
--- OUTSIDE RECORDS SUMMARY | 2025-09-21 13:11 | XMS_ITS | Encounter Summary ---
Author Organization [employer] Address [address] [place] [address] Care Team Providers Care Golf Course Architect Name Role Phone Aarti Koch MD Primary Care Provider [phone] Sebastian Jackman MD Primary Care Prov ider Encounter Details Date Type Department Care Team ([facility] st Contact Info) Description 10/18/2022 Orders Only [facility] MEDICINE [address] [place] [address] Aarti Koch MD [address] [place], [place] [phone] Social History Tobacco Use Types Packs/Day Years [...] on filedocumented in this encounter Care Teams Golf Course Architect Relationship Specialty Start Date End Date Aarti Koch MD [address] [place] [address] PCP - General Family Medicine 10/12/12 08/24/25 Sebastian Jackman MD [address] [place], [place] [phone] PCP - General Internal Medicine 08/25/25 documented as of this encounter
--- OUTSIDE RECORDS SUMMARY | 2025-09-21 13:11 | XMS_ITS | Encounter Summary ---
Author Organization [employer] Address [address] [place] [address] 7 [place] [address] Care Team Providers Care Cis Coordinator Name Role Phone Aarti Koch MD Primary Care Provider [phone] Sebastian Jackman MD Primary Care Prov ider Encounter Details Date Type Department Care Team ([facility] Contact Info) Description 05/24/2025 Orders Only [facility] [address] [place] [address] Provider, MD Dilma Social History Tobacco Use [...] documented as of this encounter Care Teams Cis Coordinator Relationship Specialty Start Date End Date Aarti Koch MD [address] [place] [address] PCP - General Family Medicine 10/12/12 08/24/25 Sebastian Jackman MD [address] [place] [address] PCP - General Internal Medicine 08/25/25 documented as of this encounter
--- OUTSIDE RECORDS SUMMARY | 2025-09-21 13:11 | XMS_ITS | Clinical Summary ---
Author Organization [employer] Address [address] [place] [address] 7t [place] [address] Care Team Providers Care Industrial Design Engineer Name Role Phone Sebastian Jackman MD Primary [...] to the affected area(s) 02/04/20 19 Active ketotifen (Zaditor) 0.025 % ophthalmic solution [...] 03/10/20 23 Active OneTouch Delica Lancets 33G misc CHECK BS BY SKIN ROUTE 2 TIMES EVERY DAY 60 each 5 03/10/20 Active Oyster Shell Calcium/D3 500-10 MG-MCG tabletIndications [...] 30 tablet 11 09/29/20 24 2024 Active rosuvastatin (Crestor) 5 MG tabletIndications :Hyperlipidemia, unspecified TAKE 1 TABLET BY MOUTH EVERY DAY 90 tablet 3 12/17/19 25 Active Lancets (OneTouch Delica Plus [id number]) [facility] CHECK SUGARS TWICE A DAY 100 each 11 02/23/20 25 Active OneTouch Ultra test strip TEST BLOOD SUGAR TWICE A DAY 100 strip 11 02/23/20 25 Active omeprazole (PriLOSEC) [address] capsule Take 20 mg by mouth Once per day. 01/13/20 25 Active Entresto 24-26 MG tablet Take 1 tablet by mouth 2 times daily. 07/01/20 24 Active ondansetron (Zofran) 4 MG tablet 4 mg. 01/13/20 Active hydrALAZINE (Apresoline) 25 MG tablet Take 1 tablet (25 mg) by mouth 3 times daily. 90 tablet 11 05/17/20 25 2025 Active amitriptyline (Elavil) 10 MG tablet TAKE 1 TABLET BY MOUTH AT BEDTIME 90 tablet 1 06/02/20 25 Active gemfibrozil (Lopid) 600 MG tabletIndications :Hyperlipidemia, unspecified TAKE 1 TABLET BY MOUTH EVERY DAY 90 tablet 1 08/08/20 25 Active ibuprofen 800 MG tabletIndications :Pain TAKE 1 TABLET BY MOUTH TWICE A DAY WITH FOOD 60 tablet 3 09/12/20 25 Active ibuprofen 800 MG tabletIndications :Pain TAKE 1 TABLET BY MOUTH TWICE A DAY WITH FOOD 60 tablet 3 05/16/20 25 2024 Discontinued Active Problems Problem Noted Date [...] Encounters Date Type Department Care Team Description 09/10/2025 Refill [facility]EDS [address] [place], [place] [phone] Aarti Koch MD Pain 09/07/2025 Orders Only GENERIC EXTERNAL DATA DEPARTMENT Provider, Generic External Data 08/07/2025 Refill [facility]ED[facility] [address] [place], [place] [phone] Aarti Koch MD Hyperlipidemia, unspecified 07/13/2025 Orders Only [facility] [address] [place], [place] [phone] Provider, MD Dilma from Last 3 Months [...] 10/11/2022, Additional history exists COVID-19 Vaccine ( - season) 2025 Influenza Vaccine (#1) 2025 Diabetes: [...] Procedure Name Priority Date/Time Associated Diagnosis Comments NT-PROBNP Routine 09/07/2025 10:20 AM EST BASIC METABOLIC PANEL Routine 09/07/2025 10:20 AM EST XR FOOT 3 OR MORE VIEWS LEFT Routine 07/11/2025 4:07 PM EDT POCT GLYCATED HEMOGLOBIN, TOTAL Routine 05/17/2025 10:26 AM EDT Type 2 diabetes mellitus without complication, without long-term current use of insulin ([facility]) LIPID PANEL, STANDARD Routine 06/02/2024 10:33 AM EDT Type 2 diabetes mellitus without complication, without long-term current use of insulin ([facility]) Mixed hyperlipidemia ALBUMIN, RANDOM URINE W/CREATININE Routine 06/02/2024 10:28 AM EDT Type 2 diabetes mellitus without complication, without long-term current use of insulin ([facility]) BI MAMMOGRAM SCREENING BILATERAL Routine 03/01/2019 9:02 AM EDT from Last 3 Months or Most Recently Relevant to Health Maintenance Results * (ABNORMAL) NT-proBNP (09/07/2025 10:20 AM EST) NT-proBNP 740.6(H) <300 pg/mL [facility] Comment:Reference Range:Age Group (years) NT-proBNP (pg/ml) InterpretationAll <300 Negative: HF unlikelyFor patients presenting to the ED with clinical suspicion ofnew onset or worsening HF, see below:18 to <50 >299.9 to <450.0 Grayzone: [id number] to 75 >299.9 to <900.0 other causes of>75 >299.9 to <1800.0 NT-proBNP [id number] to <50 >449.9 Positive: HF [id number] >899.9>75 >1799.9Note: Elevated NT-proBNP levels should be interpreted inthe context of other clinical information. 09/07/2025 10:2 0 AM EST 09/07/2025 10:20 AM EST us Generic External Data Provider LAB BLOOD ORDERAB LES Final Result [facility] [address] [place] [phone] * (ABNORMAL) Basic Metabolic Panel (09/07/2025 10:20 AM EST) Sodium 140 135 - 145 mmol/L [facility] Potassium 4.1 3.3 - 5.1 mmol/L [facility] Chloride 111(H) 96 - 108 mmol/L [facility] Carbon Dioxide 23 22 - 29 mmol/L [facility] Anion Gap 10(L) 12 - 20 [facility] Urea Nitrogen (BUN) 11 9 - 16 mg/dL [facility] Creatinine, Serum 0.75 0.5 - 1.4 mg/dL [facility] Estimated Glomerular Filt Rate >60 [facility] Comment:Chronic Kidney Disea se: Estimated GFR < 60 mL/min/1.94q6Yjhnws Kidney Disease: Estimated GFR < 15 mL/min/1.73m2 Glucose 107 60 - 115 mg/dL [facility] Calcium 8.8 8.4 - 10.2 mg/dL [facility] 09/07/2025 10:2 0 AM EST 09/07/2025 10:20 AM EST Generic External Data Provider LAB BLOOD ORDERAB LES Final Result [facility] [address] [place] [phone] * XR FOOT 3 OR MORE VIEWS LEFT (07/11/2025 4:07 PM EDT) Anatomical Region Laterality Modality Radiographic Martha ging Historical Provider IMG XR PROCEDURES Final R esult * (ABNORMAL) POCT A1C (05/17/2025 10:26 AM EDT) Hemoglobin A1C 6.2(A) 4.0 - 5.7 % QC Media Lot # Comment:[id number] Lot# Expiration Date Comment:01/04/2027 Blood 05/17/2025 10:2 6 AM EDT Aarti Koch MD POINT OF CARE TEST ENTER/EDIT OR DERABLES Final Result * (ABNORMAL) Lipid Panel, Standard (06/02/2024 10:33 AM EDT) Triglycerides 99 <150 mg/dL [facility] Comment:Desirable Triglyceri de: less than 150 mg/dLBorderline High Triglyceride 150-199 mg/dLHigh Triglyceride: 200-499 mg/dLVery High Triglyceride: greater than or equal to 5OO mg/dL Cholesterol 235(H) <200 mg/dL [facility] Comment:Desirable Cholestero l: less than 200 mg/dLBorderline High Cholesterol: 200-239 mg/dLHigh Cholesterol: greater than 239 mg/dL LDL Cholesterol Calculated 150(H) <100 mg/dL [facility] Comment:Desirable LDL: less than 100 mg/dLNear Optimal/Above Optimal LDL: 110- 129 mg/dLBorderline High LDL: 130-159 mg/dLHigh LDL: 160-189 mg/dLVery High LDL: greater than or equal to 190 mg/dL HDL Cholesterol 66 >40 mg/dL [facility] Comment:Desirable HDL: great er than 40 mg/dL Note: This HDL assay may give artificially low results in patients with liver disease. Blood Venous blood specimen / Unknown 06/02/2024 10:33 AM EDT 06/02/2024 10:33 AM EDT us Aarti Koch MD LAB BLOOD ORDERABLES Final Resul t [facility] [address] [place], [place] [phone] * (ABNORMAL) Albumin, Random Urine W/Creatinine (06/02/2024 10:28 AM EDT) Creatinine, Urine 168.53 mg/dL [facility] Microalbumin Urine 54.0 mg/L [facility] Microalbum Creatinine Ratio Ur 32.0(H) <30 ug/mg cr [facility] Comment:Albumin/Creatinine R atio Reference Ranges: Normal: < 30 ug/mg creatinine Microalbuminuria: 30 - 300 ug/mg creatinineClinical Albuminuria: > 300 ug/mg creatinine Urine (Urine, Random) 06/02/2024 10:28 AM EDT 06/02/2024 11:36 AM EDT Aarti Koch MD LAB URINE ORDERABLES Final Resul t [facility] [address] [place] [phone] * 3D DIGITAL RACHEL SCR MAMMO [...] 3D DIGITAL RACHEL SCR MAMMO 1 Aarti Koch MD IMG BI PROCEDURES Final Result from Last 3 Months or Most Recently Relevant to Health Maintenance Insurance [id number] OPT[facility] (O D-SNP) [place] [id number] Advance Directives Documents on File Type Date Recorded Patient Cloud Software Engineer Expl anation Advance Directives and Livin g Will 11/08/2024 12:47 PM HCP Care Teams Industrial Design Engineer Relationship Specialty Start Date End Date Sebastian Jackman MD [address] [place] [address] PCP - General Internal Medicine 08/25/25
--- OUTSIDE RECORDS SUMMARY | 2025-09-21 13:11 | XMS_ITS | Encounter Summary ---
Author Organization [employer] Address [address] [place] [address] 7 [place] [address] Care Team Providers Care Web Systems Developer Name Role Phone Aarti Koch MD Primary Care Provider [phone] Sebastian Jackman MD Primary Care Prov ider Reason for Visit * Reason Onset Date Comments Referral 10/09/2023 Encounter Details Date Type Department Care Team ([facility] Contact Info) Description 10/09/2023 Telephone [facility] MED & PEDS [address] [place], [place] [phone] Aarti Koch MD [address] [place] [address] Referral Social History Tobacco Use Types Packs/Day [...] was advised by provider to see a cementer machine applicator due to 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 Any questions, please contact daughter at [phone] documented in this encounter Plan of Treatment Not on file documented as of this encounter Visit Diagnoses Not on filedocumented in this encounter Additional Health Concerns Assessment Noted Time PHQ-9 Depression Total Score: 4 04/03/20 23 9:50 AM EDT documented as of this encounter Care Teams Web Systems Developer Relationship Specialty Start Date End Date Aarti Koch MD [address] [place] [address] PCP - General Family Medicine 10/12/12 08/24/25 Sebastian Jackman MD [address] [place] [address] PCP - General Internal Medicine 08/25/25 documented as of this encounter
--- OUTSIDE RECORDS SUMMARY | 2025-09-21 13:11 | XMS_ITS | Clinical Summary ---
Author Organization [address] [facility] Address [address] [place] [address] Phone Care Team Providers Care Vessel Welder Name Role Phone Aarti Koch MD Primary Care Provider [phone] Allergies Active Allergy Reactions Criticality Noted Date [...] AM EDT Office Visit Orthopedic Surgery - [address] [address] David Hermosillo, DPM Follow-up exam (Primary Dx); Arthritis of foot, left; Dermatophytosis of nail; Diabetic mononeuropathy simplex ([facility] V24, [facility] V28); Ingrowing nail; Pain in toe of right foot; Pain in toe of left foot from Last 3 Months Surgical History Surgery Date Site/Laterality Comments COLONOSCOPY PROCEDURE: HISTORICAL COLONOSCOPY ANKLE SURGERY PROCEDURE: HISTORICAL ANKLE SURGERY Medical History Medical History Date Comments Diabetes mellitus type 2, co ntrolled, with complications (CMS/HCC V24, [facility] V28) DX:Diabetes mellitus type 2, controlled, with complications ([facility]) Essential hypertension DX:Essent ial hypertension Hyperlipidemia DX:Hyperlipidemi [...] AM EST Office Visit Orthopedic Surgery - [address] [address] David Hermosillo, DPM [address] [address] Health Maintenance Due Date Last [...] GFR (Glomerular Filtration Rate) 09/15/2025 09/15/2024, 06/02/2024 Diabetes: Blood Sugar Contro [...] well as subtalar joint prior hardware intact David Hermosillo DPM IMG XR PROCEDURES Final R esult from Last 3 Months Insurance [facility] MEDICARE Member Subscriber Plan / Payer (Ef fective 2017-Present) Name:Stefanie Montanez Relation to Subscriber:Self Name:Stefanie Montanez Payer ID:[id number] Group ID:[id number] Type:Not on file Address: [place] [address] [place] [id number] Care Teams Vessel Welder Relationship Specialty Start Date End Date Aarti Koch MD [address] [place] [address] PCP - General 11/14/23
== END 2025-09-21 11:35 | disposition home or self-care (01) ==
LOC: HO.HGI 10:49
PROVIDERS: PCP Student in an Organized Health Care Education/Training Program; Visit Provider Internal Medicine
DX: D36.9 Benign neoplasm, unspecified site (principal); I44.7 Left bundle-branch block, unspecified; A04.8 Other specified bacterial intestinal infections
CPT/HCPCS: 99214

== ENCOUNTER → 2025-09-21 10:48 | Outpatient (BNVA) | payer OTHER, SELFPAY | PROVIDERS: PCP Student in an Organized Health Care Education/Training Program; Visit Provider Internal Medicine | DX: D36.9 Benign neoplasm, unspecified site (principal); I44.7 Left bundle-branch block, unspecified; A04.8 Other specified bacterial intestinal infections | CPT/HCPCS: 99212 ==